=== PATIENT | male | born 1975 | race African-American/Black ===

== ENCOUNTER → 2016-09-09 | Outpatient (CLI) | payer OTHER ==
[2016-06-16 08:20] VITALS: BP 181/105
[~2016-09-09] MED LIST: ALPR0.25 PO; AMLO5TAB2 PO; AMLO5TAB4 PO; ASPI81TA9 PO; CARV6.252 PO; CEPH-264 PO; CITA10TA8 PO; HYDR-2666 PO; LISI10TA2 PO; LISI40TA PO; MONT10TA9 PO; OXYC-244 PO; PROAIR HFA8.5 GM INH
[2016-09-12 15:19] LABS: ALDOSTERONE 3.9 ng/dL (0.0-30.0)
== END | disposition home or self-care (01) ==
LOC: LAB 09:27
PROVIDERS: ATTEND Internal Medicine Cardiovascular Disease
DX: I10 Essential (primary) hypertension (principal)
CPT/HCPCS: 36415; 82088; 84244

== ENCOUNTER → 2016-09-15 | Outpatient (CLI) | payer OTHER ==
[2016-06-16 08:20] VITALS: BP 181/105
--- NOTE | 2016-09-15 09:51 | RAD ---
APPROVED REPORT Patient Location: OUT-PATIENT Indications HTN Renal Artery Doppler Right Renal Artery Left Renal Arter y Proximal 107.0/29.0 cm/secProximal 122.0/48.0 cm/sec Mid 87.0/32.0 cm/secMid 114.0/52.0 cm/sec Distal 79.0/30.0 cm/secDistal 145.0/54.0 cm/sec Renal/Aorta Ratio 0.90Renal/Aorta Ratio 1.21 Prox. Resistive Index 0.73Prox. Resistive Index 0.60 Mid Resistive Index 0.63Mid Resistive Index 0.54 Distal Resistive Index 0.63Distal Resistive Index 0.63 Rt. Segmental A. 17.0/7.0 cm/secLt. Segmental A. 45.0/17.0 cm/sec Renal Measurements RightLeft Kidney Mslurh07.1 cm 6.5 cmKidney Lhqbrz10.8 cm 7.7 cm Right Additional FindingsLeft Additional Findings Aortic Doppler VelocityWaveform Proximal Aorta 119.0 cm/sec Findings Follow schulz scale images of the bilateral kidneys and limited imaging of the aorta was obtained for t his renal arterial duplex. The right kidney measures 13.1 cm in length (slightly at the upper limits of normal), the left kidney measures 12.8 cm in length. Aortic and renal velocities are within normal limits. Renal artery to aortic ratio is bilaterally are within appropriate limits. No high-grade obstructive renal artery stenosis is identified on this duplex examination. Limited evaluation of the bladder does not reveal any significant pathology. Critical Notification Critical Value: No <Conclusion> Normal arterial duplex examination of the renal vessels.
== END | disposition home or self-care (01) ==
LOC: US 06:38
PROVIDERS: ATTEND Internal Medicine Cardiovascular Disease
DX: I10 Essential (primary) hypertension (principal)
CPT/HCPCS: 76770

== ENCOUNTER 2016-12-26 23:44 | Emergency (ER) | payer OTHER ==
[~2016-12-26] VITALS: Ht 180.3 cm; Wt 108.9 kg
[~2016-12-26 23:44] MED LIST changes: +ASPI-612 PO; -ASPI81TA9 PO; -HYDR-2666 PO; +HYDR-2758 PO; -OXYC-244 PO; +OXYC-327 PO
--- NOTE | 2016-12-27 00:18 | PHYS DOC ---
Past Medical History Past Medical History: Hypertension Past Surgical History: Other Additional Past Surgical Histo: hamstring Alcohol Use: Occasionally Drug Use: None Adult General Chief Complaint Chief Complaint: HYPERTENSION HPI HPI Patient is a 41 year old male who presents with for evaluation of HTN. Had a headache earlier, but this has resolved. He took ibuprofen. He has not been taking labetalol as prescribed, but has refills. He is talking his other medications. He denies chest pain, dyspnea, palpitations, diaphoresis, leg pain or swelling, vision changes, dizziness. Review of Systems Review of Systems Constitutional: Denies fever or chills [] Eyes: Denies change in visual acuity, redness, or eye pain [] HENT: Denies nasal congestion or sore throat [] Respiratory: Denies cough or shortness of breath [] Cardiovascular: No additional information not addressed in HPI [] GI: Denies abdominal pain, nausea, vomiting, bloody stools or diarrhea [] : Denies dysuria or hematuria [] Musculoskeletal: Denies back pain or joint pain [] Integument: Denies rash or skin lesions [] Neurologic: Denies headache, focal weakness or sensory changes [] Endocrine: Denies polyuria or polydipsia [] Current Medications Current Medications Current Medications Medications (Trade) Dose Ordered Sig/Isatu Start Time Stop Time Status Last Admin Dose Admin Labetalol HCl (Trandate) 200 mg 1X ONCE 12/27/16 00:30 12/27/16 00:31 DC 12/27/16 00:15 200 MG Allergies Allergies Allergies Coded Allergies Type Severity Reaction Last Updated Verified No Known Drug Allergies 02/25/16 No Physical Exam Physical Exam Constitutional: Well developed, well nourished, no acute distress, non-toxic appearance. [] HENT: Normocephalic, atraumatic, bilateral external ears normal, oropharynx moist, nose normal. [] Eyes: PERRLA, EOMI. [] Neck: Normal range of motion, supple. [] Cardiovascular:Heart rate regular rhythm [] Lungs & Thorax: Bilateral breath sounds clear to auscultation [] Abdomen: Bowel sounds normal, soft, no tenderness. [] Skin: Warm, dry, no erythema, no rash. [] Back: Normal ROM. [] Extremities: No tenderness, ROM intact, no edema. [] Neurologic: Alert and oriented X 3, normal motor function, normal sensory function, no focal deficits noted. [] Psychologic: Affect normal, judgement normal, mood normal. [] Current Patient Data Vital Signs Vital Signs Date Time Temp Pulse Resp B/P (MAP) Pulse Ox O2 Delivery O2 Flow Rate FiO2 12/27/16 00:31 98.0 90 20 176/86 (116) 98 Room Air 98.0 Course & Med Decision Making Course & Med Decision Making Encouraged medication compliance. Given dose of labetalol here. He will get meds filled in a.m. Return precautions given. He understands and agrees with plan. Dragon Disclaimer Dragon Disclaimer This electronic medical record was generated, in whole or in part, using a voice recognition dictation system. Departure Departure Impression: Primary Impression: Elevated blood pressure Disposition: HOME, SELF-CARE Condition: STABLE Referrals: SAMUEL JASSO MD (PCP) Patient Instructions: Hypertension, [id number] Additional Instructions: Follow-up with your primary care doctor within one week. Return for any concerns. Bhavna YOUNG MD Dec 27, 2016 00:18
[2016-12-27] MEDS ORDERED: LABETALOL HCL 200 MG TABLET PO ONE (00:30)
[2016-12-27 00:31] VITALS: BP 176/86
== END 2016-12-27 00:47 | disposition home or self-care (01) ==
LOC: ER 23:44
DX: I10 Essential (primary) hypertension (principal)
CPT/HCPCS: 99282

== ENCOUNTER 2017-01-14 17:55 | Inpatient (IN) | payer OTHER ==
[~2017-01-14] VITALS: Ht 180.3 cm; Wt 113.4 kg
--- NOTE | 2017-01-14 18:20 | PHYS DOC ---
Past Medical History Past Medical History: Hypertension Past Surgical History: Other Additional Past Surgical Histo: hamstring Alcohol Use: Occasionally Drug Use: None Adult General Chief Complaint Chief Complaint: CHEST PAIN HPI HPI Patient is a 41 year old male presenting to the emergency department for evaluation of chest pain that started approximately 2 hours prior to arrival when he says that he was laying has bed. He says that he was wrestling with his son and the pain started shortly afterwards but he did not think that he was necessarily exerting himself. He says that it is in the center of his lower chest with mild radiation towards her left and feels achy and tight but is not severe in intensity. He says that he had mild diaphoresis but no nausea vomiting or shortness of breath. He says the pain has persisted and not worsened or improved. He says that approximately one year ago he was seen for chest pain and had an elevated troponin and then had a stress test that was normal. His cardiac risk factors include hypertension and smoking and family history. He is in no obvious distress with normal vital signs except for mild hypertension. Review of Systems Review of Systems Constitutional: Denies fever or chills [] Eyes: Denies change in visual acuity, redness, or eye pain [] HENT: Denies nasal congestion or sore throat [] Respiratory: Denies cough or shortness of breath [] Cardiovascular: + CP GI: Denies abdominal pain, nausea, vomiting, bloody stools or diarrhea [] : Denies dysuria or hematuria [] Musculoskeletal: Denies back pain or joint pain [] Integument: Denies rash or skin lesions [] Neurologic: Denies headache, focal weakness or sensory changes [] Current Medications Current Medications Current Medications Medications (Trade) Dose Ordered Sig/Isatu Start Time Stop Time Status Last Admin Dose Admin Aspirin (Ecotrin) 325 mg 1X ONCE 01/14/17 18:30 01/14/17 18:31 DC 01/14/17 18:24 325 MG Nitroglycerin (Nitrostat) 0.4 mg PRN Q5MIN PRN 01/14/17 18:30 01/14/17 18:31 0.4 MG Allergies Allergies Allergies Coded Allergies Type Severity Reaction Last Updated Verified No Known Drug Allergies 02/25/16 No Physical Exam Physical Exam Constitutional: Well developed, well nourished, no acute distress, non-toxic appearance. [] HENT: Normocephalic, atraumatic, bilateral external ears normal, oropharynx moist, no oral exudates, nose normal. [] Eyes: PERRLA, EOMI, conjunctiva normal, no discharge. [] Neck: Normal range of motion, no tenderness, supple, no stridor. [] Cardiovascular:Heart rate regular rhythm, no murmur [] Lungs & Thorax: Bilateral breath sounds clear to auscultation [] Abdomen: Bowel sounds normal, soft, no tenderness, no masses, no pulsatile masses. [] Skin: Warm, dry, no erythema, no rash. [] Back: No tenderness, no CVA tenderness. [] Extremities: No tenderness, no cyanosis, no clubbing, ROM intact, no edema. [] Neurologic: Alert and oriented X 3, normal motor function, normal sensory function, no focal deficits noted. [] Current Patient Data Vital Signs Vital Signs Date Time Temp Pulse Resp B/P (MAP) Pulse Ox O2 Delivery O2 Flow Rate FiO2 01/14/17 18:31 102 147/67 01/14/17 18:05 98.3 18 98 Room Air 98.3 Lab Values Laboratory Tests Test 01/14/17 18:15 White Blood Count 9.8 x10^3/uL (4.0-11.0) Red Blood Count 4.94 x10^6/uL (4.30-5.70) Hemoglobin 15.0 g/dL (13.0-17.5) Hematocrit 44.1 % (39.0-53.0) Mean Corpuscular Volume 89 fL (79-100) Mean Corpuscular Hemoglobin 30 pg (25-35) Mean Corpuscular Hemoglobin Concent 34 g/dL (31-37) Red Cell Distribution Width 14.0 % (11.5-14.5) Platelet Count 388 x10^3/uL (140-400) # Neutrophils (%) (Auto) 67 % (31-73) Lymphocytes (%) (Auto) 24 % (24-48) Monocytes (%) (Auto) 7 % (0-9) Eosinophils (%) (Auto) 1 % (0-3) Basophils (%) (Auto) 1 % (0-3) Neutrophils # (Auto) 6.6 x10^3uL (1.8-7.7) Lymphocytes # (Auto) 2.4 x10^3/uL (1.0-4.8) Monocytes # (Auto) 0.6 x10^3/uL (0.0-1.1) Eosinophils # (Auto) 0.1 x10^3/uL (0.0-0.7) Basophils # (Auto) 0.1 x10^3/uL (0.0-0.2) Prothrombin Time 13.5 SEC (11.7-14.0) Prothrombin Time INR 1.1 (0.8-1.1) PTT 24 SEC (24-38) Sodium Level 141 mmol/L (136-145) Potassium Level 3.8 mmol/L (3.5-5.1) Chloride Level 106 mmol/L (98-107) Carbon Dioxide Level 24 mmol/L (21-32) Anion Gap 11 (6-14) Blood Urea Nitrogen 11 mg/dL (8-26) Creatinine 1.1 mg/dL (0.7-1.3) Estimated GFR (Cockcroft-Gault) 88.4 BUN/Creatinine Ratio 10 (6-20) Glucose Level 135 mg/dL (70-99) H Calcium Level 8.6 mg/dL (8.5-10.1) Magnesium Level 1.9 mg/dL (1.8-2.4) Total Bilirubin 0.3 mg/dL (0.2-1.0) Aspartate Amino Transferase (AST) 56 U/L (15-37) H Alanine Aminotransferase (ALT) 101 U/L (16-63) H Alkaline Phosphatase 48 U/L (46-116) Creatine Kinase 1048 U/L (39-308) H Troponin I Quantitative 0.025 ng/mL (0.000-0.055) DD-Stm-B-Type Natriuretic Peptide 49 pg/mL (0-124) Total Protein 6.7 g/dL (6.4-8.2) Albumin 3.3 g/dL (3.4-5.0) L Albumin/Globulin Ratio 1.0 (1.0-1.7) Laboratory Tests 01/14/17 18:15 Laboratory Tests 01/14/17 18:15 EKG EKG Normal sinus rhythm at 89 bpm with normal axis small J-point elevation in leads V2 and V3 with normal T waves. Radiology/Procedures Radiology/Procedures Normal mediastinum and normal heart size no obvious free air pneumothorax or opacity. Course & Med Decision Making Course & Med Decision Making Patient's chest pain completely taken away with 2 doses of nitroglycerin and his blood pressure is normal. He has a normal troponin so his heart score is equal to 4. He is still lower risk given his history and concerning symptoms will go ahead and admit for further observation and treatment. Patient given aspirin and is pain-free so will admit to [facility]VC in stable condition. Patient aware and agreeable with plan. Dragon Disclaimer Dragon Disclaimer This electronic medical record was generated, in whole or in part, using a voice recognition dictation system. Departure Departure Impression: Primary Impression: Chest pain Additional Impressions: Hypertensive urgency Rhabdomyolysis Disposition: ADMITTED INPATIENT Admitting Physician: Luis E Russ Condition: STABLE Referrals: SAMUEL JASSO MD (PCP) Problem Qualifiers Primary Impression: Chest pain Chest pain type: unspecified Qualified Codes: R07.9 - Chest pain, unspecified SANTOSH LOCKWOOD DO Jan 14, 2017 18:20
[2017-01-14] MEDS: NITROGLYCERIN SUBLINGUAL 0.4 MG BOTTLE OF 25. SL PRN ×2 (18:25→18:31)
[2017-01-14 18:27] LABS: BASO # 0.1 x10^3/uL (0.0-0.2); BASO % 1 % (0-3); EOS % 1 % (0-3); HEMATOCRIT 44.1 % (39.0-53.0); LYMPH # 2.4 x10^3/uL (1.0-4.8); LYMPH % 24 % (24-48); MEAN CORPUSCULAR HEMOGLOBIN 30 pg (25-35); MEAN CORPUSCULAR HGB CONC 34 g/dL (31-37); MEAN CORPUSCULAR VOLUME 89 fL (79-100); MONO % 7 % (0-9); NEUT % 67 % (31-73); PLATELET COUNT 388 x10^3/uL (140-400); RED BLOOD COUNT 4.94 x10^6/uL (4.30-5.70); WHITE BLOOD COUNT 9.8 x10^3/uL (4.0-11.0)
[2017-01-14] MEDS ORDERED: ASPIRIN ENTERIC COATED 325 MG TABLET.DR. PO ONE (18:30)
--- NOTE | 2017-01-14 18:35 | EKG ---
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
[2017-01-14 18:39] LABS: INR 1.1 (0.8-1.1); PROTHROMBIN TIME PATIENT 13.5 SEC (11.7-14.0)
[2017-01-14 18:41] LABS: CALCIUM 8.6 mg/dL (8.5-10.1); CREATININE 1.1 mg/dL (0.7-1.3); GFR 88.4; POTASSIUM 3.8 mmol/L (3.5-5.1)
[2017-01-14 18:57] LABS: ALBUMIN 3.3 g/dL (3.4-5.0); MAGNESIUM 1.9 mg/dL (1.8-2.4); TOTAL BILIRUBIN 0.3 mg/dL (0.2-1.0); TOTAL PROTEIN 6.7 g/dL (6.4-8.2)
[2017-01-14] MEDS ORDERED: IV NORMAL SALINE 1000ML BAG 1,000 ML IV ONE (19:15)
[2017-01-14] MEDS ORDERED: fentaNYL PF VIAL 100 MCG/2 ML VIAL IV PRN (19:15)
[2017-01-14] MEDS ORDERED: ONDANSETRON PF 4 MG/2 ML VIAL. IV PRN ×2 (19:15→19:45)
--- NOTE | 2017-01-14 19:26 | PDOC1 ---
History and Physical Identification/Chief Complaint Chief Complaint Date of exam 01/14/2017 Chief complaint: Chest pain History of present illness: A 41-year-old male patient with prior history of hypertension presented to the ER with complaints of chest pain. Symptoms started 2 hours prior to his arrival to the ER. Patient was wrestling with his son, after few minutes his chest pain started, located in the center of the chest, denies any radiation sometimes, it's pokey, no nausea or vomiting however he had a 3 loose bowel movements after the chest pain. Patient usually lifts weights but he never had a chest pain. He received a nitroglycerin in the ER which made him comfortable and his chest pain is completely resolved. Patient had similar episodes in the past nearly one year ago at the time he had a stress test per report it was negative Past medical history hypertension Past surgical history hamstring surgery Family history grandmother had a heart disease, no cardiac deaths Social history: Currently smoking, no alcohol or drug abuse Allergies NKDA Problems: Past Medical History Cardiovascular: HTN, Hyperlipidemia Pulmonary: No pertinent hx CENTRAL NERVOUS SYSTEM: Other GI: No pertinent hx Heme/Onc: No pertinent hx Hepatobiliary: No pertinent hx Psych: Anxiety, Bipolar, Depression, Panic, Other Rheumatologic: No pertinent hx Infectious disease: No pertinent hx Renal/: No pertinent hx Endocrine: No pertinent hx Past Surgical History Past Surgical History: Tonsillectomy Family History Family History: Diabetes, Heart Disease, Hypertension Social History ALCOHOL: occassional Drugs: None Current Problem List Problem List Problems Medical Problems: (1) Chest pain Status: Acute Current Medications Current Medications Current Medications Medications (Trade) Dose Ordered Sig/[facility] Start Time Stop Time Status Last Admin Dose Admin Aspirin (Ecotrin) 325 mg 1X ONCE 01/14/17 18:30 01/14/17 18:31 DC 01/14/17 18:24 325 MG Fentanyl Citrate (Fentanyl 2ml Vial) 50 mcg PRN Q2HR PRN 01/14/17 19:15 01/15/17 19:14 Nitroglycerin (Nitrostat) 0.4 mg PRN Q5MIN PRN 01/14/17 18:30 01/14/17 18:31 0.4 MG Ondansetron HCl (Zofran) 4 mg PRN Q8HRS PRN 01/14/17 19:15 01/15/17 19:14 Sodium Chloride 1,000 ml @ 200 mls/hr 1X ONCE 01/14/17 19:15 01/15/17 00:14 Allergies Allergies Allergies Coded Allergies Type Severity Reaction Last Updated Verified No Known Drug Allergies 02/25/16 No ROS Review of System CONSTITUTIONAL: No fever or chills EYES: No recent changes SKIN: No rash or itching CARDIOVASCULAR: chest pain,no syncope, palpitations, or edema RESPIRATORY: No SOB or cough GASTROINTESTINAL: No nausea, vomiting or abdominal pain NEUROLOGICAL: No headaches or weakness ENDOCRINE: No cold or heat intolerance GENITOURINARY: No urgency or frequency of urination MUSCULOSKELETAL: No back pain or joint pain LYMPHATICS: No enlarged lymph nodes PSYCHIATRIC: No anxiety or depression Physical Exam Physical Exam GEN.: No apparent distress. Alert and oriented. 3 and appears muscular heavy built. HEENT: Head is normocephalic, atraumatic NECK: Supple. JVD LUNGS: Clear to auscultation. Normal airflow HEART: RRR, S1, S2 present. Peripheral pulses intact ABDOMEN: Soft, nontender. Positive bowel sounds. EXTREMITIES: Without any cyanosis. NEUROLOGIC: Normal speech, normal tone PSYCHIATRIC: Normal affect, normal mood. SKIN: No ulcerations Vitals Vitals Vital Signs Date Time Temp Pulse Resp B/P (MAP) Pulse Ox O2 Delivery O2 Flow Rate FiO2 01/14/17 18:31 102 147/67 01/14/17 18:05 98.3 18 98 Room Air 98.3 Labs Labs Laboratory Tests Test 01/14/17 18:15 White Blood Count 9.8 x10^3/uL (4.0-11.0) Red Blood Count 4.94 x10^6/uL (4.30-5.70) Hemoglobin 15.0 g/dL (13.0-17.5) Hematocrit 44.1 % (39.0-53.0) Mean Corpuscular Volume 89 fL (79-100) Mean Corpuscular Hemoglobin 30 pg (25-35) Mean Corpuscular Hemoglobin Concent 34 g/dL (31-37) Red Cell Distribution Width 14.0 % (11.5-14.5) Platelet Count 388 x10^3/uL (140-400) Neutrophils (%) (Auto) 67 % (31-73) Lymphocytes (%) (Auto) 24 % (24-48) Monocytes (%) (Auto) 7 % (0-9) Eosinophils (%) (Auto) 1 % (0-3) Basophils (%) (Auto) 1 % (0-3) Neutrophils # (Auto) 6.6 x10^3uL (1.8-7.7) Lymphocytes # (Auto) 2.4 x10^3/uL (1.0-4.8) Monocytes # (Auto) 0.6 x10^3/uL (0.0-1.1) Eosinophils # (Auto) 0.1 x10^3/uL (0.0-0.7) Basophils # (Auto) 0.1 x10^3/uL (0.0-0.2) Prothrombin Time 13.5 SEC (11.7-14.0) Prothromb Time International Ratio 1.1 (0.8-1.1) Activated Partial Thromboplast Time 24 SEC (24-38) Sodium Level 141 mmol/L (136-145) Potassium Level 3.8 mmol/L (3.5-5.1) Chloride Level 106 mmol/L (98-107) Carbon Dioxide Level 24 mmol/L (21-32) Anion Gap 11 (6-14) Blood Urea Nitrogen 11 mg/dL (8-26) Creatinine 1.1 mg/dL (0.7-1.3) Estimated GFR (Cockcroft-Gault) 88.4 BUN/Creatinine Ratio 10 (6-20) Glucose Level 135 mg/dL (70-99) Calcium Level 8.6 mg/dL (8.5-10.1) Magnesium Level 1.9 mg/dL (1.8-2.4) Total Bilirubin 0.3 mg/dL (0.2-1.0) Aspartate Amino Transf (AST/SGOT) 56 U/L (15-37) Alanine Aminotransferase (ALT/SGPT) 101 U/L (16-63) Alkaline Phosphatase 48 U/L (46-116) Creatine Kinase 1048 U/L (39-308) Troponin I Quantitative 0.025 ng/mL (0.000-0.055) RI-Meb-E-Type Natriuretic Peptide 49 pg/mL (0-124) Total Protein 6.7 g/dL (6.4-8.2) Albumin 3.3 g/dL (3.4-5.0) Albumin/Globulin Ratio 1.0 (1.0-1.7) Laboratory Tests Test 01/14/17 18:15 White Blood Count 9.8 x10^3/uL (4.0-11.0) Red Blood Count 4.94 x10^6/uL (4.30-5.70) Hemoglobin 15.0 g/dL (13.0-17.5) Hematocrit 44.1 % (39.0-53.0) Mean Corpuscular Volume 89 fL (79-100) Mean Corpuscular Hemoglobin 30 pg (25-35) Mean Corpuscular Hemoglobin Concent 34 g/dL (31-37) Red Cell Distribution Width 14.0 % (11.5-14.5) Platelet Count 388 x10^3/uL (140-400) Neutrophils (%) (Auto) 67 % (31-73) Lymphocytes (%) (Auto) 24 % (24-48) Monocytes (%) (Auto) 7 % (0-9) Eosinophils (%) (Auto) 1 % (0-3) Basophils (%) (Auto) 1 % (0-3) Neutrophils # (Auto) 6.6 x10^3uL (1.8-7.7) Lymphocytes # (Auto) 2.4 x10^3/uL (1.0-4.8) Monocytes # (Auto) 0.6 x10^3/uL (0.0-1.1) Eosinophils # (Auto) 0.1 x10^3/uL (0.0-0.7) Basophils # (Auto) 0.1 x10^3/uL (0.0-0.2) Prothrombin Time 13.5 SEC (11.7-14.0) Prothromb Time International Ratio 1.1 (0.8-1.1) Activated Partial Thromboplast Time 24 SEC (24-38) Sodium Level 141 mmol/L (136-145) Potassium Level 3.8 mmol/L (3.5-5.1) Chloride Level 106 mmol/L (98-107) Carbon Dioxide Level 24 mmol/L (21-32) Anion Gap 11 (6-14) Blood Urea Nitrogen 11 mg/dL (8-26) Creatinine 1.1 mg/dL (0.7-1.3) Estimated GFR (Cockcroft-Gault) 88.4 BUN/Creatinine Ratio 10 (6-20) Glucose Level 135 mg/dL (70-99) Calcium Level 8.6 mg/dL (8.5-10.1) Magnesium Level 1.9 mg/dL (1.8-2.4) Total Bilirubin 0.3 mg/dL (0.2-1.0) Aspartate Amino Transf (AST/SGOT) 56 U/L (15-37) Alanine Aminotransferase (ALT/SGPT) 101 U/L (16-63) Alkaline Phosphatase 48 U/L (46-116) Creatine Kinase 1048 U/L (39-308) Troponin I Quantitative 0.025 ng/mL (0.000-0.055) FU-Oab-U-Type Natriuretic Peptide 49 pg/mL (0-124) Total Protein 6.7 g/dL (6.4-8.2) Albumin 3.3 g/dL (3.4-5.0) Albumin/Globulin Ratio 1.0 (1.0-1.7) VTE Prophylaxis Ordered VTE Prophylaxis Devices: Yes VTE Pharmacological Prophylaxi: No Assessment/Plan Assessment/Plan Chest pain, possible angina: Symptoms improved with nitroglycerin, monitor 3 sets of troponin ,admit patient to CVC, continue telemetry, cardiology consultation. He has needed nitroglycerin for chest pain. If patient develops any elevated troponins restart him on heparin GTT at this time he is chest pain- free.EKG is reviewed- no acute ST-T. Changes noted, chest x-ray personally reviewed no acute findings, labs reviewed, old records reviewed, discussed with the ER physician Mild elevation of troponins: Monitor troponins Hypertension : Not controlled restart home medications, and as needed hydralazine for systolic blood pressure more than 160. Hypogonadism: On testosterone therapy ROGER BLANCA MD Jan 14, 2017 19:26
[2017-01-14] MEDS ORDERED: ALBUTEROL SULFATE 2.5 MG/3 ML NEBU. NEB PRN (19:45)
[2017-01-14] MEDS ORDERED: HYDROcodone/APAP 5/325MG 1 TAB TABLET PO PRN (19:45)
[2017-01-14] MEDS ORDERED: ACETAMINOPHEN 325 MG TABLET. PO PRN (19:45)
[2017-01-14 22:01] VITALS: BP 175/67
[2017-01-14 23:05] VITALS: BP 158/70
[2017-01-14] MEDS ORDERED: ZOLPIDEM 5 MG TABLET. PO ONE (23:45)
--- NOTE | 2017-01-15 00:21 | ACF ---
Admission Forms Criteria CHEST PAIN Clinical Indications for Admission to Inpatient Care (Place 'X' for any and all applicable criteria): Admission is indicated for chest pain and ANY ONE of the following(1)(2)(3)(4)(5 ): [ ]I. Angina with acute coronary syndrome (Also use Myocardial Infarction or Angina guideline) [ ]II. Hemodynamic instability [ ]III. Angina needing acute intervention as indicated by ALL of the following( 11)(12): [ ]a) Unstable angina is present as indicated by angina that is ANY ONE of the following: [ ]i) New onset [ ]ii) Nocturnal [ ]iii) Prolonged at rest [ ]iv) Progressive [ ]b) Angina warrants acute intervention as indicated by ANY ONE of the following: [ ]i) Recurrent angina (e.g, not responding as previously to treatment) [ ]ii) Angina at rest or with low-level activities despite initial medical therapy [ ]iii) New or presumably new ST-segment depression on ECG [ ]iv) Signs or symptoms of heart failure (eg, dyspnea, pulmonary edema) [ ]v) New or worsening mitral regurgitation [ ]vi) Hemodynamic instability [ ]vii) Dangerous arrhythmia (eg, sustained ventricular tachycardia) [ ]viii) History of percutaneous coronary intervention within 6 months [ ]ix) History of coronary artery bypass graft surgery [ ]x) LG risk score of 2 or greater[A] [ ]xi) History of Diabetes(14) [ ]xii) High-risk cardiac ischemia findings on noninvasive testing (e.g, echocardiogram, treadmill testing, nuclear scan) [ ]xiii) Chronic renal insufficiency (ie, estimated GFR less than 60 mL/min/1.732m) [ ]xiv) Left ventricular ejection fraction less than 40% [ ]IV. Evidence of OH (eg, cardiac biomarkers positive, ST-segment elevation on ECG) also use Myocardial Infarction Criteria Form. [ ]V. Pulmonary edema [ ]. Respiratory distress [ ]VII. Chest pain indicative of serious diagnosis other than coronary artery disease (eg, aortic dissection) [ ]VIII. Contraindications and/or Inappropriate clinical situations for Observational Care in patients with Chest Pain, when ANY ONE of the following is required: [ ]a) Patient with risk factor for pulmonary embolism, acute coronary syndrome and myocardial infarction (18) [ ]b) Patient with Pulmonary embolism require an average LOS of 4.3 days, therefore emergency department observation management is inappropriate 18,23 [ ]c) Painful condition/s in the elderly, have the highest rate of recidivism after emergency department observation management (10.8%) 20,21,22 [ ]d) Elevated cardiac biomarker requires intensive and exhaustive care (19) [X]IX. General contraindications and/or Inappropriate clinical situations for Observational Care in patients with Chest Pain, when ANY ONE of the following is required: [X]a) Prediction of prolongation of LOS based on ANY ONE of the following may be considered as a contraindication for observational care 2, 3, 4, 5, 6, 7, 8, 9, 10, 11 [ ]i) Age > 65 yrs. [ ]ii) Patient arriving by ambulance [ ]iii) Patient with high acuity [X]iv) Patient requiring vital sign monitoring [ ]v) Patient on IV medication [ ]b) Systolic blood pressures 180mmHg 3,12 [ ]c) Patient with altered mental status including delirium and other alteration of consciousness, (3) [ ]d) Patient whose discharge disposition will be to a senior care home or rehabilitation home should not be managed in Emergency Department Observation Unit. CMS rule requires 3 days hospital stay before such placement. 3,13 [ ]e) Patient with failure to thrive due to broad array of etiologies 3,16,17 [ ]f) Inability to ambulate 3,14 Extended stay beyond goal length of stay may be needed for (1)(28): [ ]a) Specific condition diagnosed after evaluation (eg, pulmonary embolism, aortic dissection) [ ]b) Unstable angina [ ]c) Continued suspicion of acute coronary syndrome with inability to complete needed cardiac evaluation (eg, patient clinically unable to undergo stress testing) [ ]d) Myocardial infarction (Contents from ANGINA and CHEST PAIN clinical indications for admission to inpatient care have been integrated in this form) The original [facility] content created by [employer] has been revised. The portions of the content which have been revised are identified through the use of italic text or in bold, and [facility] has neither reviewed nor approved the modified material. All other unmodified content is copyright [facility]. Please see references footnoted in the original [facility] [employer] edition 2016 Admission Criteria Met?: Yes PAULA RODAS Jan 15, 2017 00:21
[2017-01-15 03:10] VITALS: BP 163/92
[2017-01-15 07:00] VITALS: BP 174/88
[2017-01-15] MEDS ORDERED: LABE200T2 PO (07:13)
--- NOTE | 2017-01-15 07:45 | RAD ---
Chest radiograph 01/14/2017 1829 hours Indication: Mid chest pain Comparison: Chest radiograph 06/14/2016 Technique: Single portable frontal upright view of the chest is provided. Findings: Cardiomediastinal silhouette is within normal limits. No pleural effusions, pulmonary vascular congestion or pneumothorax. The lungs are clear. Osseous structures are normal. Impression: No acute cardiopulmonary process.
[2017-01-15 07:48] LABS: BASO % 0 % (0-3); EOS % 1 % (0-3); HEMATOCRIT 44.6 % (39.0-53.0); HEMOGLOBIN 15.3 g/dL (13.0-17.5); LYMPH # 2.5 x10^3/uL (1.0-4.8); LYMPH % 28 % (24-48); MEAN CORPUSCULAR HEMOGLOBIN 30 pg (25-35); MEAN CORPUSCULAR HGB CONC 34 g/dL (31-37); MEAN CORPUSCULAR VOLUME 88 fL (79-100); MONO % 7 % (0-9); NEUT % 64 % (31-73); PLATELET COUNT 396 x10^3/uL (140-400); RED BLOOD COUNT 5.06 x10^6/uL (4.30-5.70); RED CELL DISTRIBUTION WIDTH 14.3 % (11.5-14.5); WHITE BLOOD COUNT 8.9 x10^3/uL (4.0-11.0)
[2017-01-15 09:56] LABS: CALCIUM 8.1 mg/dL (8.5-10.1); CREATININE 1.2 mg/dL (0.7-1.3); POTASSIUM 4.1 mmol/L (3.5-5.1)
[2017-01-15 10:00] LABS: CHOLESTEROL/HDL RATIO 15.5
--- NOTE | 2017-01-15 10:38 | PDOC2 ---
CARDIAC CONSULT DATE OF CONSULT Date of Consult DATE: 01/15/17 TIME: 10:32 REASON FOR CONSULT Reason for Consult: Chest pain REFERRING PHYSICIAN Referring Physician: Ricarda SOURCE Source: Chart review, Patient HISTORY OF PRESENT ILLNESS HISTORY OF PRESENT ILLNESS This is a pleasant 41 yo male admitted for complains of chest pain. 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 Overnight he was having nonradiating mid chest tightness with mild SOA, diaphoresis but no nausea or vomiting or palpitations. Presently denies any CP. Denies any VTE, recent travels, leg swelling, falls or any recent injury or significant increase in his weights. His BP has been erratically high then normal with his meds has been adjusted several times. His last sudafed use was over a week for URI. Denies any recreational drugs and compliant with his BP meds. He does use testosterone therapy. No abdominal pain. PAST MEDICAL HISTORY Past Medical History Cardiovascular: HTN, Hyperlipidemia, cardiomegaly Pulmonary: No pertinent hx CENTRAL NERVOUS SYSTEM: TIA GI: No pertinent hx Heme/Onc: No pertinent hx Hepatobiliary: No pertinent hx Psych: No pertinent hx Musculoskeletal: Other (No pertinent history) Rheumatologic: No pertinent hx Infectious disease: No pertinent hx ENT: No pertinent hx Renal/: No pertinent hx Endocrine: Other (hypogonadism) Dermatology: No pertinent hx SOCIAL HISTORY Smoke: No ALCOHOL: occassional (but binge drinking with episode) Drugs: None Lives: with Family PAST SURGICAL HISTORY Past Surgical History: Tonsillectomy, Other (Right thigh muscle repair) FAMILY HISTORY Family History Coronary Artery Disease (grandfather with CAD in his 50s, parents with liver disease) SOCIAL HISTORY Smoke: No ALCOHOL: none Drugs: None Lives: with Family CURRENT MEDICATIONS CURRENT MEDICATIONS Current Medications Medications (Trade) Dose Ordered Sig/Isatu Route PRN Reason Start Time Stop Time Status Last Admin Dose Admin Aspirin (Ecotrin) 325 mg 1X ONCE PO 01/14/17 18:30 01/14/17 18:31 DC 01/14/17 18:24 Nitroglycerin (Nitrostat) 0.4 mg PRN Q5MIN PRN SL CHEST PAIN 01/14/17 18:30 01/14/17 18:31 Sodium Chloride 1,000 ml @ 200 mls/hr 1X ONCE IV 01/14/17 19:15 01/15/17 00:14 DC 01/14/17 19:56 Zolpidem Tartrate (Ambien) 5 mg 1X ONCE PO 01/14/17 23:45 01/14/17 23:46 DC 01/14/17 23:44 ALLERGIES ALLERGIES: Coded Allergies: No Known Drug Allergies (Unverified , 02/25/16) ROS Review of System 14 point ROS evaluated with pertinent positives noted per HPI PHYSICAL EXAM General: Alert, Oriented X3, Cooperative, No acute distress HEENT: Atraumatic, Mucous membr. moist/pink Lungs: Clear to auscultation, Normal air movement Heart: Regular rate (SR), Normal S1, Normal S2 Abdomen: Soft, No tenderness Extremities: No cyanosis, No edema Skin: No breakdown, No significant lesion Neuro: Normal speech, Sensation intact Psych/Mental Status: Mental status NL, Mood NL MUSCULOSKELETAL: Osteoarthritic changes both hands VITALS VITALS Vital Signs Date Time Temp Pulse Resp B/P (MAP) Pulse Ox O2 Delivery O2 Flow Rate FiO2 01/15/17 08:13 97 Room Air 01/15/17 07:00 97.9 88 17 174/88 (116) 97.9 LABS Lab: Laboratory Tests Test 01/14/17 18:15 01/15/17 00:50 01/15/17 07:20 White Blood Count 9.8 x10^3/uL (4.0-11.0) 8.9 x10^3/uL (4.0-11.0) Red Blood Count 4.94 x10^6/uL (4.30-5.70) 5.06 x10^6/uL (4.30-5.70) Hemoglobin 15.0 g/dL (13.0-17.5) 15.3 g/dL (13.0-17.5) Hematocrit 44.1 % (39.0-53.0) 44.6 % (39.0-53.0) Mean Corpuscular Volume 89 fL (79-100) 88 fL (79-100) Mean Corpuscular Hemoglobin 30 pg (25-35) 30 pg (25-35) Mean Corpuscular Hemoglobin Concent 34 g/dL (31-37) 34 g/dL (31-37) Red Cell Distribution Width 14.0 % (11.5-14.5) 14.3 % (11.5-14.5) Platelet Count 388 x10^3/uL (140-400) 396 x10^3/uL (140-400) Neutrophils (%) (Auto) 67 % (31-73) 64 % (31-73) Lymphocytes (%) (Auto) 24 % (24-48) 28 % (24-48) Monocytes (%) (Auto) 7 % (0-9) 7 % (0-9) Eosinophils (%) (Auto) 1 % (0-3) 1 % (0-3) Basophils (%) (Auto) 1 % (0-3) 0 % (0-3) Neutrophils # (Auto) 6.6 x10^3uL (1.8-7.7) 5.6 x10^3uL (1.8-7.7) Lymphocytes # (Auto) 2.4 x10^3/uL (1.0-4.8) 2.5 x10^3/uL (1.0-4.8) Monocytes # (Auto) 0.6 x10^3/uL (0.0-1.1) 0.6 x10^3/uL (0.0-1.1) Eosinophils # (Auto) 0.1 x10^3/uL (0.0-0.7) 0.1 x10^3/uL (0.0-0.7) Basophils # (Auto) 0.1 x10^3/uL (0.0-0.2) 0.0 x10^3/uL (0.0-0.2) Prothrombin Time 13.5 SEC (11.7-14.0) Prothromb Time International Ratio 1.1 (0.8-1.1) Activated Partial Thromboplast Time 24 SEC (24-38) Sodium Level 141 mmol/L (136-145) 140 mmol/L (136-145) Potassium Level 3.8 mmol/L (3.5-5.1) 4.1 mmol/L (3.5-5.1) Chloride Level 106 mmol/L (98-107) 105 mmol/L (98-107) Carbon Dioxide Level 24 mmol/L (21-32) 26 mmol/L (21-32) Anion Gap 11 (6-14) 9 (6-14) Blood Urea Nitrogen 11 mg/dL (8-26) 11 mg/dL (8-26) Creatinine 1.1 mg/dL (0.7-1.3) 1.2 mg/dL (0.7-1.3) Estimated GFR (Cockcroft-Gault) 88.4 80.0 BUN/Creatinine Ratio 10 (6-20) Glucose Level 135 mg/dL (70-99) 100 mg/dL (70-99) Calcium Level 8.6 mg/dL (8.5-10.1) 8.1 mg/dL (8.5-10.1) Magnesium Level 1.9 mg/dL (1.8-2.4) Total Bilirubin 0.3 mg/dL (0.2-1.0) Aspartate Amino Transf (AST/SGOT) 56 U/L (15-37) Alanine Aminotransferase (ALT/SGPT) 101 U/L (16-63) Alkaline Phosphatase 48 U/L (46-116) Creatine Kinase 1048 U/L (39-308) 652 U/L (39-308) Troponin I Quantitative 0.025 ng/mL (0.000-0.055) 0.039 ng/mL (0.000-0.055) < 0.017 ng/mL (0.000-0.055) GD-Zoa-Y-Type Natriuretic Peptide 49 pg/mL (0-124) Total Protein 6.7 g/dL (6.4-8.2) Albumin 3.3 g/dL (3.4-5.0) Albumin/Globulin Ratio 1.0 (1.0-1.7) Triglycerides Level 98 mg/dL (0-150) Cholesterol Level 248 mg/dL (0-200) LDL Cholesterol, Calculated 212 mg/dL (0-100) VLDL Cholesterol, Calculated 20 mg/dL (0-40) Non-HDL Cholesterol Calculated 232 mg/dL (0-129) HDL Cholesterol 16 mg/dL (40-60) Cholesterol/HDL Ratio 15.5 Thyroid Stimulating Hormone (TSH) 0.884 uIU/mL (0.358-3.74) ECHOCARDIOGRAM ECHOCARDIOGRAM <Conclusion> The left ventricular systolic function is normal. The Ejection Fraction is estimated at 60-65%. There is normal LV segmental wall motion. Doppler and Color-flow revealed trace mitral regurgitation. There is no evidence of significant pericardial effusion. DATE: 12/09/15 1117 STRESS TEST STRESS TEST Conclusion 1. No evidence of stress induced EKG changes. 2. Normal myocardial perfusion at stress/rest. 3. Normal EF with stress. > 60% 4. Low risk study DATE: 12/19/15 1432 ASSESSMENT/PLAN ASSESSMENT/PLAN 1. Chest pain: Doubt ACS. Possible MSK/bronchospasm. 2. Presyncope: reports inadequate po hydration, bradycardia/ and possible hypotensive episode contributing 3. Sinus Bradycardia: likely vagal induced with underlying use of BB 4. Accelerated HTN: difficult control so far with multiple adjustment of meds in the past. Negative for ANJUM. Suspecting testosterone therapy contributing 5. HLP: uncontrolled. testosterone therapy contributing 6. Transaminitis/Rhabdomyolysis: No abd pain. Likely from weight lifting, creatine powder use and testosterone therapy Recommendations 1. TTE, discussed MPI vs LHC and would prefer to have MPI, will proceed today 2. EKG. Sleep study is pending as an outpt. 3. Amlodipine, start on losartan, start on hydralazine. No BB. 4. Will need to check testosterone levels and ultrasound of liver- defer to PCP 5. Discussed protein drinks, physiology of muscle breakdown and hydration adequacy 6. TSH, CK Problems: NOREEN LR BRAZER FURNACE Jan 15, 2017 10:38
[2017-01-15 11:00] VITALS: BP 168/84
[2017-01-15 11:08] LABS: ALBUMIN 3.4 g/dL (3.4-5.0); DIRECT BILIRUBIN 0.1 mg/dL (0.0-0.2); TOTAL BILIRUBIN 0.3 mg/dL (0.2-1.0); TOTAL PROTEIN 6.7 g/dL (6.4-8.2)
[2017-01-15] MEDS: LOSARTAN POTASSIUM 50 MG TABLET. PO SCH (11:09)
[2017-01-15] MEDS: amLODIPine BESYLATE 10 MG TABLET PO SCH (11:10)
--- NOTE | 2017-01-15 12:12 | EKG ---
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
[2017-01-15] MEDS ORDERED: REGADENOSON 0.4 MG/5 ML DISP.SYRIN. IV ONE (12:15)
--- NOTE | 2017-01-15 14:09 | PDOC ---
PROGRESS NOTES Chief Complaint Chief Complaint Chest pain, possible unstable angina Mild elevation of troponins Hypertension accellerated. Hypogonadism: On testosterone therapy HLD mild rhabdo h/o TIA tobaccoism possible MYLA ELEVATED transaminites, likely 2/2 ROBERTS PLAN: FU WITH card, echo MPI hold BB since delbert today add more HTN meds liver US ADD lipitor ivf, repeate CKMB fu with pulm as outpt for MYLA History of Present Illness History of Present Illness CHEST pain much better today bp high, delbert cardia sometime Vitals Vitals Vital Signs Date Time Temp Pulse Resp B/P (MAP) Pulse Ox O2 Delivery O2 Flow Rate FiO2 01/15/17 11:10 89 168/79 01/15/17 11:00 98.0 18 97 Room Air 98.0 Physical Exam General: Alert, Oriented X3, Cooperative, No acute distress Heart: Regular rate (SR), Normal S1, Normal S2 Lungs: Clear Abdomen: Soft, No tenderness Extremities: No cyanosis, No edema Skin: No breakdown, No significant lesion Labs LABS Laboratory Tests Test 01/14/17 18:15 01/15/17 00:50 01/15/17 07:20 White Blood Count 9.8 x10^3/uL (4.0-11.0) 8.9 x10^3/uL (4.0-11.0) Red Blood Count 4.94 x10^6/uL (4.30-5.70) 5.06 x10^6/uL (4.30-5.70) Hemoglobin 15.0 g/dL (13.0-17.5) 15.3 g/dL (13.0-17.5) Hematocrit 44.1 % (39.0-53.0) 44.6 % (39.0-53.0) Mean Corpuscular Volume 89 fL (79-100) 88 fL (79-100) Mean Corpuscular Hemoglobin 30 pg (25-35) 30 pg (25-35) Mean Corpuscular Hemoglobin Concent 34 g/dL (31-37) 34 g/dL (31-37) Red Cell Distribution Width 14.0 % (11.5-14.5) 14.3 % (11.5-14.5) Platelet Count 388 x10^3/uL (140-400) 396 x10^3/uL (140-400) Neutrophils (%) (Auto) 67 % (31-73) 64 % (31-73) Lymphocytes (%) (Auto) 24 % (24-48) 28 % (24-48) Monocytes (%) (Auto) 7 % (0-9) 7 % (0-9) Eosinophils (%) (Auto) 1 % (0-3) 1 % (0-3) Basophils (%) (Auto) 1 % (0-3) 0 % (0-3) Neutrophils # (Auto) 6.6 x10^3uL (1.8-7.7) 5.6 x10^3uL (1.8-7.7) Lymphocytes # (Auto) 2.4 x10^3/uL (1.0-4.8) 2.5 x10^3/uL (1.0-4.8) Monocytes # (Auto) 0.6 x10^3/uL (0.0-1.1) 0.6 x10^3/uL (0.0-1.1) Eosinophils # (Auto) 0.1 x10^3/uL (0.0-0.7) 0.1 x10^3/uL (0.0-0.7) Basophils # (Auto) 0.1 x10^3/uL (0.0-0.2) 0.0 x10^3/uL (0.0-0.2) Prothrombin Time 13.5 SEC (11.7-14.0) Prothromb Time International Ratio 1.1 (0.8-1.1) Activated Partial Thromboplast Time 24 SEC (24-38) Sodium Level 141 mmol/L (136-145) 140 mmol/L (136-145) Potassium Level 3.8 mmol/L (3.5-5.1) 4.1 mmol/L (3.5-5.1) Chloride Level 106 mmol/L (98-107) 105 mmol/L (98-107) Carbon Dioxide Level 24 mmol/L (21-32) 26 mmol/L (21-32) Anion Gap 11 (6-14) 9 (6-14) Blood Urea Nitrogen 11 mg/dL (8-26) 11 mg/dL (8-26) Creatinine 1.1 mg/dL (0.7-1.3) 1.2 mg/dL (0.7-1.3) Estimated GFR (Cockcroft-Gault) 88.4 80.0 BUN/Creatinine Ratio 10 (6-20) Glucose Level 135 mg/dL (70-99) 100 mg/dL (70-99) Calcium Level 8.6 mg/dL (8.5-10.1) 8.1 mg/dL (8.5-10.1) Magnesium Level 1.9 mg/dL (1.8-2.4) Total Bilirubin 0.3 mg/dL (0.2-1.0) 0.3 mg/dL (0.2-1.0) Aspartate Amino Transf (AST/SGOT) 56 U/L (15-37) 48 U/L (15-37) Alanine Aminotransferase (ALT/SGPT) 101 U/L (16-63) 98 U/L (16-63) Alkaline Phosphatase 48 U/L (46-116) 47 U/L (46-116) Creatine Kinase 1048 U/L (39-308) 652 U/L (39-308) Troponin I Quantitative 0.025 ng/mL (0.000-0.055) 0.039 ng/mL (0.000-0.055) < 0.017 ng/mL (0.000-0.055) CN-Ppb-D-Type Natriuretic Peptide 49 pg/mL (0-124) Total Protein 6.7 g/dL (6.4-8.2) 6.7 g/dL (6.4-8.2) Albumin 3.3 g/dL (3.4-5.0) 3.4 g/dL (3.4-5.0) Albumin/Globulin Ratio 1.0 (1.0-1.7) Direct Bilirubin 0.1 mg/dL (0.0-0.2) Triglycerides Level 98 mg/dL (0-150) Cholesterol Level 248 mg/dL (0-200) LDL Cholesterol, Calculated 212 mg/dL (0-100) VLDL Cholesterol, Calculated 20 mg/dL (0-40) Non-HDL Cholesterol Calculated 232 mg/dL (0-129) HDL Cholesterol 16 mg/dL (40-60) Cholesterol/HDL Ratio 15.5 Thyroid Stimulating Hormone (TSH) 0.884 uIU/mL (0.358-3.74) Review of Systems Review of Systems no fever, chills, sob or chest pain Assessment and Plan Assessmemt and Plan Problems Medical Problems: (1) Chest pain Status: Acute (2) Hypertensive urgency Status: Acute (3) Rhabdomyolysis Status: Acute Problems: Comment Review of Relevant I have reviewed the following items gabo (where applicable) has been applied. Labs Laboratory Tests Test 01/14/17 18:15 01/15/17 00:50 01/15/17 07:20 White Blood Count 9.8 x10^3/uL (4.0-11.0) 8.9 x10^3/uL (4.0-11.0) Red Blood Count 4.94 x10^6/uL (4.30-5.70) 5.06 x10^6/uL (4.30-5.70) Hemoglobin 15.0 g/dL (13.0-17.5) 15.3 g/dL (13.0-17.5) Hematocrit 44.1 % (39.0-53.0) 44.6 % (39.0-53.0) Mean Corpuscular Volume 89 fL (79-100) 88 fL (79-100) Mean Corpuscular Hemoglobin 30 pg (25-35) 30 pg (25-35) Mean Corpuscular Hemoglobin Concent 34 g/dL (31-37) 34 g/dL (31-37) Red Cell Distribution Width 14.0 % (11.5-14.5) 14.3 % (11.5-14.5) Platelet Count 388 x10^3/uL (140-400) 396 x10^3/uL (140-400) Neutrophils (%) (Auto) 67 % (31-73) 64 % (31-73) Lymphocytes (%) (Auto) 24 % (24-48) 28 % (24-48) Monocytes (%) (Auto) 7 % (0-9) 7 % (0-9) Eosinophils (%) (Auto) 1 % (0-3) 1 % (0-3) Basophils (%) (Auto) 1 % (0-3) 0 % (0-3) Neutrophils # (Auto) 6.6 x10^3uL (1.8-7.7) 5.6 x10^3uL (1.8-7.7) Lymphocytes # (Auto) 2.4 x10^3/uL (1.0-4.8) 2.5 x10^3/uL (1.0-4.8) Monocytes # (Auto) 0.6 x10^3/uL (0.0-1.1) 0.6 x10^3/uL (0.0-1.1) Eosinophils # (Auto) 0.1 x10^3/uL (0.0-0.7) 0.1 x10^3/uL (0.0-0.7) Basophils # (Auto) 0.1 x10^3/uL (0.0-0.2) 0.0 x10^3/uL (0.0-0.2) Prothrombin Time 13.5 SEC (11.7-14.0) Prothromb Time International Ratio 1.1 (0.8-1.1) Activated Partial Thromboplast Time 24 SEC (24-38) Sodium Level 141 mmol/L (136-145) 140 mmol/L (136-145) Potassium Level 3.8 mmol/L (3.5-5.1) 4.1 mmol/L (3.5-5.1) Chloride Level 106 mmol/L (98-107) 105 mmol/L (98-107) Carbon Dioxide Level 24 mmol/L (21-32) 26 mmol/L (21-32) Anion Gap 11 (6-14) 9 (6-14) Blood Urea Nitrogen 11 mg/dL (8-26) 11 mg/dL (8-26) Creatinine 1.1 mg/dL (0.7-1.3) 1.2 mg/dL (0.7-1.3) Estimated GFR (Cockcroft-Gault) 88.4 80.0 BUN/Creatinine Ratio 10 (6-20) Glucose Level 135 mg/dL (70-99) 100 mg/dL (70-99) Calcium Level 8.6 mg/dL (8.5-10.1) 8.1 mg/dL (8.5-10.1) Magnesium Level 1.9 mg/dL (1.8-2.4) Total Bilirubin 0.3 mg/dL (0.2-1.0) 0.3 mg/dL (0.2-1.0) Aspartate Amino Transf (AST/SGOT) 56 U/L (15-37) 48 U/L (15-37) Alanine Aminotransferase (ALT/SGPT) 101 U/L (16-63) 98 U/L (16-63) Alkaline Phosphatase 48 U/L (46-116) 47 U/L (46-116) Creatine Kinase 1048 U/L (39-308) 652 U/L (39-308) Troponin I Quantitative 0.025 ng/mL (0.000-0.055) 0.039 ng/mL (0.000-0.055) < 0.017 ng/mL (0.000-0.055) KJ-Fcv-E-Type Natriuretic Peptide 49 pg/mL (0-124) Total Protein 6.7 g/dL (6.4-8.2) 6.7 g/dL (6.4-8.2) Albumin 3.3 g/dL (3.4-5.0) 3.4 g/dL (3.4-5.0) Albumin/Globulin Ratio 1.0 (1.0-1.7) Direct Bilirubin 0.1 mg/dL (0.0-0.2) Triglycerides Level 98 mg/dL (0-150) Cholesterol Level 248 mg/dL (0-200) LDL Cholesterol, Calculated 212 mg/dL (0-100) VLDL Cholesterol, Calculated 20 mg/dL (0-40) Non-HDL Cholesterol Calculated 232 mg/dL (0-129) HDL Cholesterol 16 mg/dL (40-60) Cholesterol/HDL Ratio 15.5 Thyroid Stimulating Hormone (TSH) 0.884 uIU/mL (0.358-3.74) Laboratory Tests Test 01/14/17 18:15 01/15/17 00:50 01/15/17 07:20 White Blood Count 9.8 x10^3/uL (4.0-11.0) 8.9 x10^3/uL (4.0-11.0) Red Blood Count 4.94 x10^6/uL (4.30-5.70) 5.06 x10^6/uL (4.30-5.70) Hemoglobin 15.0 g/dL (13.0-17.5) 15.3 g/dL (13.0-17.5) Hematocrit 44.1 % (39.0-53.0) 44.6 % (39.0-53.0) Mean Corpuscular Volume 89 fL (79-100) 88 fL (79-100) Mean Corpuscular Hemoglobin 30 pg (25-35) 30 pg (25-35) Mean Corpuscular Hemoglobin Concent 34 g/dL (31-37) 34 g/dL (31-37) Red Cell Distribution Width 14.0 % (11.5-14.5) 14.3 % (11.5-14.5) Platelet Count 388 x10^3/uL (140-400) 396 x10^3/uL (140-400) Neutrophils (%) (Auto) 67 % (31-73) 64 % (31-73) Lymphocytes (%) (Auto) 24 % (24-48) 28 % (24-48) Monocytes (%) (Auto) 7 % (0-9) 7 % (0-9) Eosinophils (%) (Auto) 1 % (0-3) 1 % (0-3) Basophils (%) (Auto) 1 % (0-3) 0 % (0-3) Neutrophils # (Auto) 6.6 x10^3uL (1.8-7.7) 5.6 x10^3uL (1.8-7.7) Lymphocytes # (Auto) 2.4 x10^3/uL (1.0-4.8) 2.5 x10^3/uL (1.0-4.8) Monocytes # (Auto) 0.6 x10^3/uL (0.0-1.1) 0.6 x10^3/uL (0.0-1.1) Eosinophils # (Auto) 0.1 x10^3/uL (0.0-0.7) 0.1 x10^3/uL (0.0-0.7) Basophils # (Auto) 0.1 x10^3/uL (0.0-0.2) 0.0 x10^3/uL (0.0-0.2) Prothrombin Time 13.5 SEC (11.7-14.0) Prothromb Time International Ratio 1.1 (0.8-1.1) Activated Partial Thromboplast Time 24 SEC (24-38) Sodium Level 141 mmol/L (136-145) 140 mmol/L (136-145) Potassium Level 3.8 mmol/L (3.5-5.1) 4.1 mmol/L (3.5-5.1) Chloride Level 106 mmol/L (98-107) 105 mmol/L (98-107) Carbon Dioxide Level 24 mmol/L (21-32) 26 mmol/L (21-32) Anion Gap 11 (6-14) 9 (6-14) Blood Urea Nitrogen 11 mg/dL (8-26) 11 mg/dL (8-26) Creatinine 1.1 mg/dL (0.7-1.3) 1.2 mg/dL (0.7-1.3) Estimated GFR (Cockcroft-Gault) 88.4 80.0 BUN/Creatinine Ratio 10 (6-20) Glucose Level 135 mg/dL (70-99) 100 mg/dL (70-99) Calcium Level 8.6 mg/dL (8.5-10.1) 8.1 mg/dL (8.5-10.1) Magnesium Level 1.9 mg/dL (1.8-2.4) Total Bilirubin 0.3 mg/dL (0.2-1.0) 0.3 mg/dL (0.2-1.0) Aspartate Amino Transf (AST/SGOT) 56 U/L (15-37) 48 U/L (15-37) Alanine Aminotransferase (ALT/SGPT) 101 U/L (16-63) 98 U/L (16-63) Alkaline Phosphatase 48 U/L (46-116) 47 U/L (46-116) Creatine Kinase 1048 U/L (39-308) 652 U/L (39-308) Troponin I Quantitative 0.025 ng/mL (0.000-0.055) 0.039 ng/mL (0.000-0.055) < 0.017 ng/mL (0.000-0.055) DD-Pio-Y-Type Natriuretic Peptide 49 pg/mL (0-124) Total Protein 6.7 g/dL (6.4-8.2) 6.7 g/dL (6.4-8.2) Albumin 3.3 g/dL (3.4-5.0) 3.4 g/dL (3.4-5.0) Albumin/Globulin Ratio 1.0 (1.0-1.7) Direct Bilirubin 0.1 mg/dL (0.0-0.2) Triglycerides Level 98 mg/dL (0-150) Cholesterol Level 248 mg/dL (0-200) LDL Cholesterol, Calculated 212 mg/dL (0-100) VLDL Cholesterol, Calculated 20 mg/dL (0-40) Non-HDL Cholesterol Calculated 232 mg/dL (0-129) HDL Cholesterol 16 mg/dL (40-60) Cholesterol/HDL Ratio 15.5 Thyroid Stimulating Hormone (TSH) 0.884 uIU/mL (0.358-3.74) Medications Current Medications Aspirin (Ecotrin) 325 mg 1X ONCE PO Last administered on 01/14/17 18:24; Start 01/14/17 at 18:30; Stop 01/14/17 at 18:31; Status DC Nitroglycerin (Nitrostat) 0.4 mg PRN Q5MIN PRN SL CHEST PAIN Last administered on 01/14/17 18:31; Start 01/14/17 at 18:30 Ondansetron HCl (Zofran) 4 mg PRN Q8HRS PRN IV NAUSEA/VOMITING; Start 01/14/17 at 19:15; Stop 01/15/17 at 19:14 Fentanyl Citrate (Fentanyl 2ml Vial) 50 mcg PRN Q2HR PRN IV PAIN; Start at 19:15; Stop 01/15/17 at 19:14 Sodium Chloride 1,000 ml @ 200 mls/hr 1X ONCE IV Last administered on 19:56; Start 01/14/17 at 19:15; Stop 01/15/17 at 00:14; Status DC Acetaminophen (Tylenol) 325 mg PRN Q6HRS PRN PO MILD PAIN / TEMP; Start at 19:45 Acetaminophen/ Hydrocodone Bitart (Lortab 5/325) 1 tab PRN Q6HRS PRN PO MODERATE TO SEVERE PAIN; Start 01/14/17 at 19:45 Hydralazine HCl (Apresoline) 10 mg PRN Q4HRS PRN IVP ELEVATED BP, SEE COMMENTS ; Start 01/14/17 at 19:45 Ondansetron HCl (Zofran) 4 mg PRN Q8HRS PRN IV NAUSEA/VOMITING; Start 01/14/17 at 19:45 Albuterol Sulfate (Ventolin Neb Soln) 2.5 mg PRN Q4HRS PRN NEB SHORTNESS OF BREATH; Start 01/14/17 at 19:45 Zolpidem Tartrate (Ambien) 5 mg 1X ONCE PO Last administered on 01/14/17 23: 44; Start 01/14/17 at 23:45; Stop 01/14/17 at 23:46; Status DC Amlodipine Besylate (Norvasc) 10 mg DAILY PO Last administered on 01/15/17 11: 10; Start 01/15/17 at 12:00 Losartan Potassium (Cozaar) 100 mg DAILY PO Last administered on 01/15/17 11: 09; Start 01/15/17 at 11:30 Hydralazine HCl (Apresoline) 50 mg TID PO ; Start 01/15/17 at 14:00 Regadenoson (Lexiscan) 0.4 mg 1X ONCE IV Last administered on 01/15/17 13:49 ; Start 01/15/17 at 12:15; Stop 01/15/17 at 12:16; Status DC Atorvastatin Calcium (Lipitor) 20 mg QHS PO ; Start 01/15/17 at 21:00 Lorazepam (Ativan) 0.5 mg 1X ONCE IV Last administered on 01/15/17 13:21; Start 01/15/17 at 13:15; Stop 01/15/17 at 13:16; Status DC Active Scripts Active Proair Hfa Inhaler (Albuterol Sulfate) 8.5 Gm Hfa.aer.ad 1 Puff INH PRN Q6HRS PRN Montelukast Sodium Tablet (Montelukast Sodium) 10 Mg Tablet 10 Mg PO QHS Amlodipine Besylate 5 Mg Tablet 5 Mg PO DAILY Carvedilol 6.25 Mg Tablet 12.5 Mg PO BIDWMEALS Reported Labetalol Hcl 200 Mg Tablet 1 Tab PO BID Vitals/I & O Vital Sign - Last 24 Hours 01/14/17 01/14/17 01/14/17 01/14/17 18:05 18:25 18:30 18:31 Temp 98.3 98.3 Pulse 92 87 100 102 Resp 18 23 B/P (MAP) 176/94 (121) 176/94 147/67 (93) 147/67 Pulse Ox 98 96 O2 Delivery Room Air Room Air 01/14/17 01/14/17 01/14/17 01/14/17 19:00 19:30 20:00 20:30 Pulse 92 90 83 92 Resp 20 21 20 22 B/P (MAP) 122/68 (86) 87/52 (64) 143/88 (106) 171/72 (105) Pulse Ox 96 97 98 98 01/14/17 01/14/17 01/14/17 01/14/17 21:00 21:45 22:01 23:05 Temp 98.2 97.5 98.2 97.5 Pulse 96 91 83 Resp 20 18 15 B/P (MAP) 166/65 (98) 175/67 (103) 158/70 (99) Pulse Ox 97 96 98 O2 Delivery Room Air Non-Rebreather Room Air Room Air 01/15/17 01/15/17 01/15/17 01/15/17 03:10 07:00 08:00 08:13 Temp 98.8 97.9 98.8 97.9 Pulse 84 88 Resp 11 17 B/P (MAP) 163/92 (115) 174/88 (116) Pulse Ox 98 97 97 O2 Delivery Room Air Room Air Non-Rebreather Room Air 01/15/17 01/15/17 01/15/17 11:00 11:09 11:10 Temp 98.0 98.0 Pulse 88 88 89 Resp 18 B/P (MAP) 168/84 (112) 168/79 168/79 Pulse Ox 97 O2 Delivery Room Air Intake and Output 01/14/17 01/14/17 01/15/17 15:00 23:00 07:00 Output Total 350 ml Balance -350 ml JENN GALINDO MD Jan 15, 2017 14:09
[2017-01-15] MEDS ORDERED: IV NORMAL SALINE 1000ML BAG 1,000 ML IV ONE (14:15)
[2017-01-15] MEDS: hydrALAZINE 20 MG/ML VIAL. IVP PRN ×2 (14:22→23:39)
[2017-01-15 15:00] VITALS: BP 169/71
--- NOTE | 2017-01-15 17:07 | RAD ---
APPROVED REPORT Test Type: Pharmacological Stress Nurse/Tech: Nadia Del Real R.N. Test Indications: Chest pain Cardiac History: SEE EMR Medications: SEE EMR Medical History: SEE EMR Resting ECG: SR Resting Heart Rate: 85 bpm Resting Blood Pressure: 225/75mmHg Pretest Chest Pain: None Nurse/Tech Notes S1S2, lungs CTA, denieds chest pain, SOA and dizziness. Consent: The procedure was explained to the patient in lay terms. Informed consent was witnessed. Roosevelt eout was entered into [employer] History and Stress Test performed by Nadia Del Real R.N. Pharm. Details Pharmacologic stress testing was performed using 0.4mg per 5ml of regadenoson given intravenously ove r 7-10 seconds. Stress Symptoms Slightly hot all over. POST EXERCISE Reason for Termination: Infusion complete Max HR: 115 bpm Max Blood Pressure: 216/75mmHg Blood Pressure response to exercise: Abnormal blood pressure response during stress. Heart Rate response to exercise: Normal Chest Pain: No. Arrhythmia: No. ST Change: No. INTERPRETATION Stress EKG Conclusion: The resting EKG showed a sinus rhythm with nonspecific ST-T wave changes. The stress EKG showed no significant changes from baseline. No EKG evidence of stress-induced ischemia. Imaging Protocol IMAGE PROTOCOL: Rest Tc-99m/stress Tc-99m 1 day Rest: Stress: Viability: Radiopharm.Tc99m NowogvwylId42v Sestamibi Oedo47uIt 34mCi Duration 15min. 10min. Img Date 01/15/2017 01/15/2017 Inj-Img Eqxw13out. 45min. Rest Admin Site:IV - Left AntecubitalAdministrator:GERALDINE Campos, ARRT (R)(N) Stress Admin Site: IV - Left AntecubitalAdministrator: GERALDINE Campos, ARRT (R)(N) STRESS DATA End Diast. Vol.156.0mlAv. Heart Qhqw918.0bpm End Syst. Vol.50.0mlCO Index BSA10.8L/min Myocardial Kqbf630.0gEject. Ledzkbuq91.0% Stress Rates Pk. Fill Rate3.15EDV/secLVtime Pk. Fill 145.63msec Pk. Empty Rate5.26ESV/secLVtime Pk. Olpoa168.91msec 1/3 Pk. Fill1.87EDV/sec Stress Scores Regional WT1.00Summed WT15.00 Regional WM0.00Summed WM0.00 LV Perfusion The stress scans showed no significant defects. The rest scans showed no significant defects. Nuclear imaging shows no reversible ischemia or infarct. Wall Motion Left ventricular systolic function is normal with an ejection fraction of 68%. LV Perf. Quant 17 Seg. SSS0.00 17 Seg. SRS0.00 17 Seg. SDS0.00 Stress Defect Extent (% LAD)0.00Rest Defect Extent (% LAD)0.00Rev. Defect Extent (% LAD)0.00 Stress Defect Extent (% LCX) 0.00Rest Defect Extent (% LCX)0.00Rev. Defect Extent (% LCX)0.00 Stress Defect Extent (% RCA)0.00Rest Defect Extent (% RCA)0.00Rev. Defect Extent (% RCA)0.00 Stress Defect Extent (% YUSUF)0.00Rest Defect Extent (% YUSUF)0.00Rev. Defect Extent (% YUSUF)0.00 Conclusion 1. No EKG evidence of stress-induced ischemia. 2. Nuclear imaging shows no reversible ischemia or infarct. 3. Normal left ventricular systolic function with an ejection fraction of 68%. 4. Low risk Lexiscan nuclear stress test.
--- NOTE | 2017-01-15 17:47 | CARD ---
APPROVED REPORT EXAM: Two-dimensional and M-mode echocardiogram with Doppler and color Doppler. Other Information Quality : Average Rhythm : NSR INDICATION Dyspnea 2D DIMENSIONS RVDd3.5 (2.9-3.5cm)Left Atrium(2D)3.7 (1.6-4.0cm) IVSd1.4 (0.7-1.1cm)Aortic Root(2D)3.2 (2.0-3.7cm) LVDd5.0 (3.9-5.9cm)LVOT Diameter2.2 (1.8-2.4cm) PWd1.4 (0.7-1.1cm)LVDs3.0 (2.5-4.0cm) FS (%) 35.6 %SV80.0 ml LVEF(%)64.7 (>50%) Aortic Valve AoV Peak Conrado.107.1cm/sAoV VTI17.6cm AO Peak GR.4.6mmHgLVOT Peak Conrado.86.0cm/s LVOT VTI 15.12cmAO Mean GR.3mmHg JUVENTINO (VMAX)3.37sm9PNI (VTI)3.25cm2 Mitral Valve MV E Hmjybign51.2cm/sMV DECEL DAHU73pk MV A Cydajrfi79.9cm/sMV JEO57ar E/A Ratio0.6MV A Mvfuooty27tc MVA (PHT)9.64cm2 TDI E/Lateral E'4.9E/Medial E'6.2 Pulmonary Valve PV Peak Hibqozli426.7cm/sPV Peak Grad.4mmHg RVOT VTI17.1cm Tricuspid Valve TR P. Lkicwjvo979fd/sRAP KBVVGWYQ8zuEe TR Peak Gr.89olXjVIPH82roDp Pulmonary Vein S1 Rvqpronz49.6cm/sD2 Wrkcypag29.0cm/s LEFT VENTRICLE The left ventricle is normal size. There is mild concentric left ventricular hypertrophy. Left ventri zehra systolic function is normal. The Ejection Fraction is 60-65%. There is normal LV segmental wall m otion. Tissue Doppler imaging reveals mild left ventricular diastolic dysfunction. Transmitral Dopple r flow pattern is Grade I-abnormal relaxation pattern. There is no ventricular septal defect visualiz ed. RIGHT VENTRICLE The right ventricle is normal size. The right ventricular systolic function is normal. ATRIA The left atrium size is normal. The right atrium size is normal. The interatrial septum is intact wit h no evidence for an atrial septal defect or patent foramen ovale as noted on 2-D or Doppler imaging. AORTIC VALVE The aortic valve is normal in structure and function. The aortic valve is trileaflet. Doppler and Col or Flow revealed no significant aortic regurgitation. There is no significant aortic valvular stenosi s. MITRAL VALVE The mitral valve is normal in structure and function. There is no mitral valve stenosis. Doppler and Color Flow revealed no mitral valve regurgitation noted. TRICUSPID VALVE The tricuspid valve is normal in structure and function. Doppler and Color Flow revealed trace to mil d tricuspid regurgitation. The PA pressure was estimated at 35 mmHg. There is no tricuspid valve sten osis. PULMONIC VALVE The pulmonary valve is normal in structure and function. Doppler and Color Flow revealed trace pulmon ic valvular regurgitation. There is no pulmonic valvular stenosis. GREAT VESSELS The aortic root is normal in size. Normal pulmonary venous flow (Doppler). The IVC is normal in size and collapses >50% with inspiration. PERICARDIAL EFFUSION There is no evidence of significant pericardial effusion. Critical Notification Critical Value: No <Conclusion> The left ventricle is normal size. Left ventricle systolic function is normal. The Ejection Fraction is 60-65%. There is mild concentric left ventricular hypertrophy. There is no significant aortic valvular stenosis. Doppler and Color Flow revealed no significant aortic regurgitation. Doppler and Color Flow revealed no mitral valve regurgitation noted. Doppler and Color Flow revealed trace to mild tricuspid regurgitation. The PA pressure was estimated at 35 mmHg.
[2017-01-15 19:15] VITALS: BP 167/74
[2017-01-15] MEDS ORDERED: ATORVASTATIN CALCIUM 20 MG TABLET PO SCH (21:00)
[2017-01-15] MEDS ORDERED: ZOLPIDEM 5 MG TABLET. PO PRN (22:00)
[2017-01-15 23:15] VITALS: BP 193/92
[2017-01-15 23:36] LABS: BILIRUBIN,URINE NEGATIVE (NEG); GLUCOSE,URINE NEGATIVE (NEG); NITRITE,URINE NEGATIVE (NEG); PROTEIN,URINE NEGATIVE (NEG-TRACE)
[2017-01-15 23:42] LABS: BACTERIA,URINE 0 /HPF (0-FEW); RBC,URINE 0 /HPF (0-2); SQUAMOUS EPITHELIAL CELL,UR OCC /LPF; WBC,URINE RARE /HPF (0-4)
[2017-01-16 03:40] VITALS: BP 207/94
[2017-01-16] MEDS: hydrALAZINE 20 MG/ML VIAL. IVP PRN (04:03)
[2017-01-16 05:12] LABS: BASO % 1 % (0-3); EOS % 1 % (0-3); HEMATOCRIT 46.2 % (39.0-53.0); LYMPH # 2.5 x10^3/uL (1.0-4.8); LYMPH % 24 % (24-48); MEAN CORPUSCULAR HEMOGLOBIN 30 pg (25-35); MEAN CORPUSCULAR HGB CONC 33 g/dL (31-37); MEAN CORPUSCULAR VOLUME 91 fL (79-100); MONO % 7 % (0-9); NEUT % 67 % (31-73); PLATELET COUNT 363 x10^3/uL (140-400); RED BLOOD COUNT 5.11 x10^6/uL (4.30-5.70); RED CELL DISTRIBUTION WIDTH 14.4 % (11.5-14.5); WHITE BLOOD COUNT 10.7 x10^3/uL (4.0-11.0)
[2017-01-16 05:31] LABS: CALCIUM 9.4 mg/dL (8.5-10.1); GFR 98.7; POTASSIUM 4.2 mmol/L (3.5-5.1)
[2017-01-16 05:55] LABS: CKMB MASS 2.5 ng/mL (0.0-3.6)
[2017-01-16 07:30] VITALS: BP 134/68
[2017-01-16] MEDS ORDERED: LABETALOL 20 MG/4 ML DISP.SYRIN. IVP PRN (07:30)
[2017-01-16] MEDS: LOSARTAN POTASSIUM 50 MG TABLET. PO SCH (08:21)
[2017-01-16] MEDS: amLODIPine BESYLATE 10 MG TABLET PO SCH (08:21)
--- NOTE | 2017-01-16 09:23 | RAD ---
Ultrasound of the abdomen limited. History: Elevated LFTs Ultrasound was used to evaluate the liver and right upper quadrant. Pancreas was normal in appearance, portions of the tail of the pancreas were poorly seen.. Proximal aorta and vena cava were unremarkable. Liver was within normal limits in size and appearance without a focal lesion. There was flow in the portal vein with color imaging. Right kidney was 11.3 cm in length without a mass or hydronephrosis. Gallbladder was normal without gallstones or gallbladder wall thickening. Common duct was normal measuring 4 mm. Impression: 1. Normal ultrasound of the liver, gallbladder and right upper quadrant.
[2017-01-16] MEDS ORDERED: METOPROLOL TART IMMED RELEASE 25 MG TABLET. PO SCH (10:45)
[2017-01-16 11:00] VITALS: BP 163/66
[2017-01-16 13:38] VITALS: BP 163/66
[2017-01-16] MEDS ORDERED: METO25TA4 PO (13:57)
[2017-01-16] MEDS ORDERED: ATOR20TA58 PO (13:57)
[2017-01-16] MEDS ORDERED: HYDR-2869 PO (13:57)
[2017-01-16] MEDS ORDERED: LOSA50TA2 PO (13:57)
[2017-01-16] MEDS ORDERED: AMLO10TA2 PO (13:57)
--- NOTE | 2017-01-16 14:00 | PDOC3 ---
Discharge Summary [facility] Date of Admission: Jan 14, 2017 Discharge Date: Jan 16, 2017 Admitting Diagnosis Chest pain, 2/2 muscular pain likely Mild elevation of troponins Hypertension accellerated. Hypogonadism: On testosterone therapy HLD mild rhabdo h/o TIA tobaccoism possible MYLA ELEVATED transaminites, likely 2/2 ROBERTS Problems: Final Diagnosis CONSULTS card Brief Hospital Course Mr. Solomon is a 41 old M, muscular kadeem , on testosterone not sure it is for hypogonodism or muscle build, comes for chest pain when wresting with his little son. ECHO, MPI all neg mild high LFT, CK, better after ivf. US liver neg. dc home with new HTN meds, see [facility]. dc time 40min General: Alert, Oriented X3, Cooperative, No acute distress Heart: Regular rate (SR), Normal S1, Normal S2 Lungs: Clear Abdomen: Soft, No tenderness Extremities: No cyanosis, No edema Skin: No breakdown, No significant lesion Patient History: Family history: Cardiovascular disease (situation) 33 FATHER 32 MOTHER Family history: Diabetes mellitus (situation) 33 FATHER 32 MOTHER Family history: Hypertension (situation) 33 FATHER 32 MOTHER Family history: Obesity (situation) 32 MOTHER Problems: Disposition home CONDITION AT DISCHARGE: Improved, Stable Diet cardiac Scheduled Amlodipine Besylate (Amlodipine Besylate), 10 MG PO DAILY Atorvastatin Calcium (Atorvastatin Calcium), 20 MG PO QHS Hydralazine Hcl (Hydralazine Hcl), 50 MG PO TID Losartan Potassium (Cozaar), 100 MG PO DAILY Metoprolol Tartrate (Metoprolol Tartrate), 25 MG PO BID Montelukast Sodium (Montelukast Sodium Tablet), 10 MG PO QHS Scheduled PRN Albuterol Sulfate (Proair Hfa Inhaler), 1 PUFF INH PRN Q6HRS PRN for SHORTNESS OF BREATH Discontinued Medications Amlodipine Besylate (Amlodipine Besylate), 5 MG PO DAILY Carvedilol (Carvedilol), 12.5 MG PO BIDWMEALS Labetalol Hcl (Labetalol Hcl), 1 TAB PO BID, (Reported) Lisinopril (Lisinopril), 1 TAB PO DAILY, (Reported) JENN GALINDO MD Jan 16, 2017 14:00
--- NOTE | 2017-01-16 14:38 | PDOC ---
PROGRESS NOTES Subjective Subjective The patient looks and feels well today. Objective Objective Vital Signs Date Time Temp Pulse Resp B/P (MAP) Pulse Ox O2 Delivery O2 Flow Rate FiO2 01/16/17 13:38 107 163/66 01/16/17 11:00 97.9 18 94 Room Air 97.9 Intake and Output 01/16/17 07:00 Intake Total 1350 ml Output Total 1475 ml Balance -125 ml Intake Oral 1350 ml Output Urine Total 1475 ml # Voids 4 Physical Exam Abdomen: Normal bowel sounds Heart: Regular rate General: No acute distress Lungs: Clear to auscultation Assessment Assessment Problems Medical Problems: (1) Chest pain Status: Acute (2) Hypertensive urgency Status: Acute (3) Rhabdomyolysis Status: Acute ASSESSMENT/PLAN 1. Chest pain: Resolved. Echo and nuclear stress test normal. 2. Presyncope: reports inadequate po hydration, bradycardia/ and possible hypotensive episode contributing 3. Sinus Bradycardia: Now sinus tachycardia. We will reinitiate low-dose beta blockers. 4. Accelerated HTN: Improved control. Continuing medical treatment as above. 5. HLP: testosterone therapy contributing 6. Transaminitis/Rhabdomyolysis: No abd pain. Likely from weight lifting, creatine powder use and testosterone therapy Comment Review of Relevant I have reviewed the following items gabo (where applicable) has been applied. Labs Laboratory Tests Test 01/14/17 18:15 01/15/17 00:50 01/15/17 07:20 01/15/17 22:30 White Blood Count 9.8 x10^3/uL (4.0-11.0) 8.9 x10^3/uL (4.0-11.0) Red Blood Count 4.94 x10^6/uL (4.30-5.70) 5.06 x10^6/uL (4.30-5.70) Hemoglobin 15.0 g/dL (13.0-17.5) 15.3 g/dL (13.0-17.5) Hematocrit 44.1 % (39.0-53.0) 44.6 % (39.0-53.0) Mean Corpuscular Volume 89 fL (79-100) 88 fL (79-100) Mean Corpuscular Hemoglobin 30 pg (25-35) 30 pg (25-35) Mean Corpuscular Hemoglobin Concent 34 g/dL (31-37) 34 g/dL (31-37) Red Cell Distribution Width 14.0 % (11.5-14.5) 14.3 % (11.5-14.5) Platelet Count 388 x10^3/uL (140-400) 396 x10^3/uL (140-400) Neutrophils (%) (Auto) 67 % (31-73) 64 % (31-73) Lymphocytes (%) (Auto) 24 % (24-48) 28 % (24-48) Monocytes (%) (Auto) 7 % (0-9) 7 % (0-9) Eosinophils (%) (Auto) 1 % (0-3) 1 % (0-3) Basophils (%) (Auto) 1 % (0-3) 0 % (0-3) Neutrophils # (Auto) 6.6 x10^3uL (1.8-7.7) 5.6 x10^3uL (1.8-7.7) Lymphocytes # (Auto) 2.4 x10^3/uL (1.0-4.8) 2.5 x10^3/uL (1.0-4.8) Monocytes # (Auto) 0.6 x10^3/uL (0.0-1.1) 0.6 x10^3/uL (0.0-1.1) Eosinophils # (Auto) 0.1 x10^3/uL (0.0-0.7) 0.1 x10^3/uL (0.0-0.7) Basophils # (Auto) 0.1 x10^3/uL (0.0-0.2) 0.0 x10^3/uL (0.0-0.2) Prothrombin Time 13.5 SEC (11.7-14.0) Prothromb Time International Ratio 1.1 (0.8-1.1) Activated Partial Thromboplast Time 24 SEC (24-38) Sodium Level 141 mmol/L (136-145) 140 mmol/L (136-145) Potassium Level 3.8 mmol/L (3.5-5.1) 4.1 mmol/L (3.5-5.1) Chloride Level 106 mmol/L (98-107) 105 mmol/L (98-107) Carbon Dioxide Level 24 mmol/L (21-32) 26 mmol/L (21-32) Anion Gap 11 (6-14) 9 (6-14) Blood Urea Nitrogen 11 mg/dL (8-26) 11 mg/dL (8-26) Creatinine 1.1 mg/dL (0.7-1.3) 1.2 mg/dL (0.7-1.3) Estimated GFR (Cockcroft-Gault) 88.4 80.0 BUN/Creatinine Ratio 10 (6-20) Glucose Level 135 mg/dL (70-99) 100 mg/dL (70-99) Calcium Level 8.6 mg/dL (8.5-10.1) 8.1 mg/dL (8.5-10.1) Magnesium Level 1.9 mg/dL (1.8-2.4) Total Bilirubin 0.3 mg/dL (0.2-1.0) 0.3 mg/dL (0.2-1.0) Aspartate Amino Transf (AST/SGOT) 56 U/L (15-37) 48 U/L (15-37) Alanine Aminotransferase (ALT/SGPT) 101 U/L (16-63) 98 U/L (16-63) Alkaline Phosphatase 48 U/L (46-116) 47 U/L (46-116) Creatine Kinase 1048 U/L (39-308) 652 U/L (39-308) Troponin I Quantitative 0.025 ng/mL (0.000-0.055) 0.039 ng/mL (0.000-0.055) < 0.017 ng/mL (0.000-0.055) [id number]-[id number]-Type Natriuretic Peptide 49 pg/mL (0-124) Total Protein 6.7 g/dL (6.4-8.2) 6.7 g/dL (6.4-8.2) Albumin 3.3 g/dL (3.4-5.0) 3.4 g/dL (3.4-5.0) Albumin/Globulin Ratio 1.0 (1.0-1.7) Direct Bilirubin 0.1 mg/dL (0.0-0.2) Triglycerides Level 98 mg/dL (0-150) Cholesterol Level 248 mg/dL (0-200) LDL Cholesterol, Calculated 212 mg/dL (0-100) VLDL Cholesterol, Calculated 20 mg/dL (0-40) Non-HDL Cholesterol Calculated 232 mg/dL (0-129) HDL Cholesterol 16 mg/dL (40-60) Cholesterol/HDL Ratio 15.5 Thyroid Stimulating Hormone (TSH) 0.884 uIU/mL (0.358-3.74) Urine Collection Type Unknown Urine Color Yellow Urine Clarity Clear Urine pH 8.0 Urine Specific [place] 1.020 Urine Protein Negative mg/dL (NEG-TRACE) Urine Glucose (UA) Negative mg/dL (NEG) Urine Ketones (Stick) Negative mg/dL (NEG) Urine Blood Negative (NEG) Urine Nitrite Negative (NEG) Urine Bilirubin Negative (NEG) Urine Urobilinogen Dipstick 1.0 mg/dL (0.2 mg/dL) Urine Leukocyte Esterase Negative (NEG) Urine RBC 0 /HPF (0-2) Urine WBC Rare /HPF (0-4) Urine Squamous Epithelial Cells Occ /LPF Urine Bacteria 0 /HPF (0-FEW) Test 01/16/17 02:55 01/16/17 04:30 White Blood Count 10.7 x10^3/uL (4.0-11.0) Red Blood Count 5.11 x10^6/uL (4.30-5.70) Hemoglobin 15.0 g/dL (13.0-17.5) Hematocrit 46.2 % (39.0-53.0) Mean Corpuscular Volume 91 fL (79-100) Mean Corpuscular Hemoglobin 30 pg (25-35) Mean Corpuscular Hemoglobin Concent 33 g/dL (31-37) Red Cell Distribution Width 14.4 % (11.5-14.5) Platelet Count 363 x10^3/uL (140-400) Neutrophils (%) (Auto) 67 % (31-73) Lymphocytes (%) (Auto) 24 % (24-48) Monocytes (%) (Auto) 7 % (0-9) Eosinophils (%) (Auto) 1 % (0-3) Basophils (%) (Auto) 1 % (0-3) Neutrophils # (Auto) 7.2 x10^3uL (1.8-7.7) Lymphocytes # (Auto) 2.5 x10^3/uL (1.0-4.8) Monocytes # (Auto) 0.8 x10^3/uL (0.0-1.1) Eosinophils # (Auto) 0.1 x10^3/uL (0.0-0.7) Basophils # (Auto) 0.0 x10^3/uL (0.0-0.2) Sodium Level 142 mmol/L (136-145) Potassium Level 4.2 mmol/L (3.5-5.1) Chloride Level 107 mmol/L (98-107) Carbon Dioxide Level 24 mmol/L (21-32) Anion Gap 11 (6-14) Blood Urea Nitrogen 14 mg/dL (8-26) Creatinine 1.0 mg/dL (0.7-1.3) Estimated GFR (Cockcroft-Gault) 98.7 Glucose Level 103 mg/dL (70-99) Calcium Level 9.4 mg/dL (8.5-10.1) Creatine Kinase 380 U/L (39-308) Creatine Kinase MB (Mass) 2.5 ng/mL (0.0-3.6) Creatine Kinase MB Relative Index 0.7 % (0-4) Laboratory Tests Test 01/15/17 22:30 01/16/17 02:55 01/16/17 04:30 Urine Collection Type Unknown Urine Color Yellow Urine Clarity Clear Urine pH 8.0 Urine Specific [place] 1.020 Urine Protein Negative mg/dL (NEG-TRACE) Urine Glucose (UA) Negative mg/dL (NEG) Urine Ketones (Stick) Negative mg/dL (NEG) Urine Blood Negative (NEG) Urine Nitrite Negative (NEG) Urine Bilirubin Negative (NEG) Urine Urobilinogen Dipstick 1.0 mg/dL (0.2 mg/dL) Urine Leukocyte Esterase Negative (NEG) Urine RBC 0 /HPF (0-2) Urine WBC Rare /HPF (0-4) Urine Squamous Epithelial Cells Occ /LPF Urine Bacteria 0 /HPF (0-FEW) White Blood Count 10.7 x10^3/uL (4.0-11.0) Red Blood Count 5.11 x10^6/uL (4.30-5.70) Hemoglobin 15.0 g/dL (13.0-17.5) Hematocrit 46.2 % (39.0-53.0) Mean Corpuscular Volume 91 fL (79-100) Mean Corpuscular Hemoglobin 30 pg (25-35) Mean Corpuscular Hemoglobin Concent 33 g/dL (31-37) Red Cell Distribution Width 14.4 % (11.5-14.5) Platelet Count 363 x10^3/uL (140-400) Neutrophils (%) (Auto) 67 % (31-73) Lymphocytes (%) (Auto) 24 % (24-48) Monocytes (%) (Auto) 7 % (0-9) Eosinophils (%) (Auto) 1 % (0-3) Basophils (%) (Auto) 1 % (0-3) Neutrophils # (Auto) 7.2 x10^3uL (1.8-7.7) Lymphocytes # (Auto) 2.5 x10^3/uL (1.0-4.8) Monocytes # (Auto) 0.8 x10^3/uL (0.0-1.1) Eosinophils # (Auto) 0.1 x10^3/uL (0.0-0.7) Basophils # (Auto) 0.0 x10^3/uL (0.0-0.2) Sodium Level 142 mmol/L (136-145) Potassium Level 4.2 mmol/L (3.5-5.1) Chloride Level 107 mmol/L (98-107) Carbon Dioxide Level 24 mmol/L (21-32) Anion Gap 11 (6-14) Blood Urea Nitrogen 14 mg/dL (8-26) Creatinine 1.0 mg/dL (0.7-1.3) Estimated GFR (Cockcroft-Gault) 98.7 Glucose Level 103 mg/dL (70-99) Calcium Level 9.4 mg/dL (8.5-10.1) Creatine Kinase 380 U/L (39-308) Creatine Kinase MB (Mass) 2.5 ng/mL (0.0-3.6) Creatine Kinase MB Relative Index 0.7 % (0-4) Medications Current Medications Aspirin (Ecotrin) 325 mg 1X ONCE PO Last administered on 01/14/17 18:24; Start 01/14/17 at 18:30; Stop 01/14/17 at 18:31; Status DC Nitroglycerin (Nitrostat) 0.4 mg PRN Q5MIN PRN SL CHEST PAIN Last administered on 01/14/17 18:31; Start 01/14/17 at 18:30 Ondansetron HCl (Zofran) 4 mg PRN Q8HRS PRN IV NAUSEA/VOMITING; Start 01/14/17 at 19:15; Stop 01/15/17 at 19:14; Status DC Fentanyl Citrate (Fentanyl 2ml Vial) 50 mcg PRN Q2HR PRN IV PAIN; Start at 19:15; Stop 01/15/17 at 19:14; Status DC Sodium Chloride 1,000 ml @ 200 mls/hr 1X ONCE IV Last administered on 19:56; Start 01/14/17 at 19:15; Stop 01/15/17 at 00:14; Status DC Acetaminophen (Tylenol) 325 mg PRN Q6HRS PRN PO MILD PAIN / TEMP Last administered on 01/16/17 08:27; Start 01/14/17 at 19:45 Acetaminophen/ Hydrocodone Bitart (Lortab 5/325) 1 tab PRN Q6HRS PRN PO MODERATE TO SEVERE PAIN Last administered on 01/16/17 05:08; Start 01/14/17 at 19:45 Hydralazine HCl (Apresoline) 10 mg PRN Q4HRS PRN IVP ELEVATED BP, SEE COMMENTS Last administered on 01/16/17 04:03; Start 01/14/17 at 19:45 Ondansetron HCl (Zofran) 4 mg PRN Q8HRS PRN IV NAUSEA/VOMITING; Start 01/14/17 at 19:45 Albuterol Sulfate (Ventolin Neb Soln) 2.5 mg PRN Q4HRS PRN NEB SHORTNESS OF BREATH; Start 01/14/17 at 19:45 Zolpidem Tartrate (Ambien) 5 mg 1X ONCE PO Last administered on 01/14/17 23: 44; Start 01/14/17 at 23:45; Stop 01/14/17 at 23:46; Status DC Amlodipine Besylate (Norvasc) 10 mg DAILY PO Last administered on 01/16/17 08: 21; Start 01/15/17 at 12:00 Losartan Potassium (Cozaar) 100 mg DAILY PO Last administered on 01/16/17 08: 21; Start 01/15/17 at 11:30 Hydralazine HCl (Apresoline) 50 mg TID PO Last administered on 01/16/17 13:38 ; Start 01/15/17 at 14:00 Regadenoson (Lexiscan) 0.4 mg 1X ONCE IV Last administered on 01/15/17 13:49 ; Start 01/15/17 at 12:15; Stop 01/15/17 at 12:16; Status DC Atorvastatin Calcium (Lipitor) 20 mg QHS PO Last administered on 01/15/17 21: 14; Start 01/15/17 at 21:00 Lorazepam (Ativan) 0.5 mg 1X ONCE IV Last administered on 01/15/17 13:21; Start 01/15/17 at 13:15; Stop 01/15/17 at 13:16; Status DC Sodium Chloride 1,000 ml @ 100 mls/hr 1X ONCE IV ; Start 01/15/17 at 14:15; Stop 01/16/17 at 00:14; Status DC Zolpidem Tartrate (Ambien) 5 mg PRN QHS PRN PO INSOMNIA, MAY REPEAT IN 1HR Last administered on 01/15/17 23:37; Start 01/15/17 at 22:00 Labetalol HCl (Normodyne) 20 mg PRN Q2HR PRN IVP HYPERTENSION, SEE COMMENTS; Start 01/16/17 at 07:30 Metoprolol Tartrate (Lopressor) 25 mg BID PO Last administered on 01/16/17 10: 54; Start 01/16/17 at 10:45 Active Scripts Active Metoprolol Tartrate 25 Mg Tablet 25 Mg PO BID 30 Days Cozaar (Losartan Potassium) 50 Mg Tablet 100 Mg PO DAILY 30 Days Hydralazine Hcl 50 Mg Tablet 50 Mg PO TID 30 Days Atorvastatin Calcium 20 Mg Tablet 20 Mg PO QHS 30 Days Amlodipine Besylate 10 Mg Tablet 10 Mg PO DAILY 30 Days Proair Hfa Inhaler (Albuterol Sulfate) 8.5 Gm Hfa.aer.ad 1 Puff INH PRN Q6HRS PRN Montelukast Sodium Tablet (Montelukast Sodium) 10 Mg Tablet 10 Mg PO QHS Vitals/I & O Vital Sign - Last 24 Hours 01/15/17 01/15/17 01/15/17 01/15/17 15:00 19:15 20:00 21:14 Temp 97.8 98.1 97.8 98.1 Pulse 101 111 111 Resp 18 18 B/P (MAP) 169/71 (103) 167/74 (105) 167/74 Pulse Ox 96 94 O2 Delivery Room Air Room Air Room Air 01/15/17 01/15/17 01/16/17 01/16/17 23:15 23:39 03:40 04:03 Temp 98.0 98.0 98.0 98.0 Pulse 105 95 83 84 Resp 18 18 B/P (MAP) 193/92 (125) 193/92 207/94 (131) 207/94 Pulse Ox 97 95 O2 Delivery Room Air Room Air 01/16/17 01/16/17 01/16/17 01/16/17 07:30 08:00 08:20 08:21 Temp 96.4 96.4 Pulse 75 99 99 Resp 18 B/P (MAP) 134/68 (90) 167/82 167/82 Pulse Ox 97 O2 Delivery Room Air Room Air 01/16/17 01/16/17 01/16/17 01/16/17 08:21 10:54 11:00 13:38 Temp 97.9 97.9 Pulse 88 106 107 107 Resp 18 B/P (MAP) 167/82 163/66 163/66 (98) 163/66 Pulse Ox 94 O2 Delivery Room Air Intake and Output 01/15/17 01/15/17 01/16/17 15:00 23:00 07:00 Intake Total 850 ml 500 ml Output Total 875 ml 600 ml Balance -875 ml 850 ml -100 ml DAVION ZIMMERMAN MD Jan 16, 2017 14:38
== END 2017-01-16 16:09 | disposition home or self-care (01) | DRG 558 ==
LOC: ER 17:55 → ED HOLD 19:02 → 2 NORTH 21:35
PROVIDERS: ADMIT Internal Medicine; ATTEND Internal Medicine
DX: M62.82 Rhabdomyolysis (principal); R07.89 Other chest pain; I16.0 Hypertensive urgency; E78.5 Hyperlipidemia, unspecified; F17.200 Nicotine dependence, unspecified, uncomplicated; G47.33 Obstructive sleep apnea (adult) (pediatric); R74.0 Nonspecific elevation of levels of transaminase and lactic acid dehydrogenase [LDH]; Z90.89 Acquired absence of other organs; Z83.3 Family history of diabetes mellitus; Z82.49 Family history of ischemic heart disease and other diseases of the circulatory system; Z86.73 Personal history of transient ischemic attack (TIA), and cerebral infarction without residual deficits; Z79.899 Other long term (current) drug therapy; Z79.1 Long term (current) use of non-steroidal anti-inflammatories (NSAID); Z79.2 Long term (current) use of antibiotics; R00.1 Bradycardia, unspecified
CPT/HCPCS: 36415; 71010; 76705; 78452; 80048; 80053; 80061; 80076; 81001; 82550; 82553; 83735; 83874; 83880; 84443; 84484; 85027; 85610; 85730; 93005; 93017; 93306; 94250; 94760; 96360; 96361; 96374; 96375; 96376; A9500; C1887; J0360; J2060; J2785; J7030; 99285-25

== ENCOUNTER 2017-01-24 08:13 | Emergency (ER) | payer OTHER ==
[~2017-01-24] VITALS: Ht 180.3 cm; Wt 113.4 kg
[~2017-01-24 08:13] MED LIST changes: +AMLO10TA2 PO; +ATOR20TA58 PO; +HYDR-2869 PO; +LABE200T2 PO; +LOSA50TA2 PO; +METO25TA4 PO
--- NOTE | 2017-01-24 09:34 | RAD ---
Indication hypertension. Dizziness. Blurred vision. Suspect CVA. Protocol exam. A single view of the chest was obtained and is compared to an examination 10 days earlier. The heart, pulmonary vessels and mediastinum appear normal. The lungs are clear. There has been little change compared to the previous exam. IMPRESSION: No acute or focal process. No significant change
[2017-01-24 09:37] LABS: BASO % 1 % (0-3); EOS % 1 % (0-3); HEMATOCRIT 45.6 % (39.0-53.0); HEMOGLOBIN 15.4 g/dL (13.0-17.5); LYMPH # 2.2 x10^3/uL (1.0-4.8); LYMPH % 25 % (24-48); MEAN CORPUSCULAR HEMOGLOBIN 30 pg (25-35); MEAN CORPUSCULAR HGB CONC 34 g/dL (31-37); MEAN CORPUSCULAR VOLUME 89 fL (79-100); MONO % 10 % (0-9); NEUT % 64 % (31-73); PLATELET COUNT 331 x10^3/uL (140-400); RED BLOOD COUNT 5.14 x10^6/uL (4.30-5.70); RED CELL DISTRIBUTION WIDTH 14.6 % (11.5-14.5); WHITE BLOOD COUNT 8.8 x10^3/uL (4.0-11.0)
[2017-01-24 09:46] LABS: CALCIUM 9.5 mg/dL (8.5-10.1); CREATININE 1.1 mg/dL (0.7-1.3); GFR 88.4; POTASSIUM 4.6 mmol/L (3.5-5.1)
[2017-01-24 09:51] LABS: ALBUMIN 3.7 g/dL (3.4-5.0); ALBUMIN/GLOBULIN RATIO 1.1 (1.0-1.7); TOTAL BILIRUBIN 0.4 mg/dL (0.2-1.0)
--- NOTE | 2017-01-24 09:51 | RAD ---
Indication hypertension. Dizziness. Noncontrast images of the head were obtained. Note is made of a previous examination 12/09/2015. The calvarium appears unremarkable. The visualized paranasal sinuses appear normal. There is no subdural or epidural hematoma. Ventricles and sulci are normal. No mass or midline shift is seen. No hemorrhage or acute finding is apparent. IMPRESSION: No acute finding seen in the head PQRS Compliance Statement: One or more of the following individualized dose reduction techniques were utilized for this examination: 1. Automated exposure control 2. Adjustment of the mA and/or kV according to patient size 3. Use of iterative reconstruction technique
[2017-01-24] MEDS ORDERED: ALPRAZolam 0.5 MG TABLET PO ONE (10:00)
--- NOTE | 2017-01-24 10:37 | EKG ---
[facility] [address] [place] [address] Test Date: 2017-01-24 Test Time: 09:10:03 Pat Name: RADHA DESHPANDE Department: Room: Gender: M Assistant Cook: : 1975 Requested By: VIRGILIO AG Order Number: [id number] Reading MD: Bruce Daley Measurements Intervals [place] Rate: 75 P: 34 SD: 158 QRS: 21 QRSD: 94 T: 13 QT: 372 QTc: 418 Interpretive Statements SINUS RHYTHM Electronically Signed On 01-28-2017 14:49:43 CDT by Bruce Daley
[2017-01-24 10:40] LABS: BILIRUBIN,URINE NEGATIVE (NEG); GLUCOSE,URINE NEGATIVE (NEG); NITRITE,URINE NEGATIVE (NEG); PROTEIN,URINE NEGATIVE (NEG-TRACE)
[2017-01-24 10:43] LABS: BARBITURATES NEG (NEG); BENZODIAZEPINES NEG (NEG); CANNABINOIDS NEG (NEG); COCAINE NEG (NEG); METHADONE NEG (NEG); OPIATES NEG (NEG); PHENCYCLIDINE NEG (NEG)
[2017-01-24 10:50] LABS: BACTERIA,URINE FEW /HPF (0-FEW); WBC,URINE OCC /HPF (0-4)
[2017-01-24 11:45] VITALS: BP 153/68
--- NOTE | 2017-01-24 12:46 | ED.ADGEN ---
Past Medical History Past Medical History: Hypertension, TIA Past Surgical History: Other Additional Past Surgical Histo: hamstring Alcohol Use: Occasionally Drug Use: None Adult General Chief Complaint Chief Complaint: DIZZY/LIGHT HEADED HPI HPI Patient is a 41 year old man, history of anxiety, hypertension, who presents to the emergency department with a complaint of some dizziness, and a concern for anxiety and hypertension. Patient's initial blood pressure is 200/110, he recently had medication adjustments made after visiting the ED with hypertension. Patient denies any chest pain, complains of some mild shortness of breath which is now improved, states he is expressing a headache and some blurred vision. No vertiginous symptoms. He denies any focal weakness, numbness or tingling, any nausea or vomiting, any injuries, any triggering symptoms. Patient states that he is currently waiting to get into a sleep study, Review of Systems Review of Systems Constitutional: Denies fever or chills. [] Eyes: Denies change in visual acuity. [] HENT: Denies nasal congestion or sore throat. [] Respiratory: Denies cough, mild shortness of breath. Cardiovascular: Denies chest pain or edema. [] GI: Denies abdominal pain, nausea, vomiting, bloody stools or diarrhea. [] : Denies dysuria. [] Musculoskeletal: Denies back pain or joint pain. [] Integument: Denies rash. [] Neurologic: Denies focal weakness or sensory changes. [] Headache, dizziness, blurry vision. Endocrine: Denies polyuria or polydipsia. [] Lymphatic: Denies swollen glands. [] Psychiatric: Denies depression or anxiety. [] Current Medications Current Medications Current Medications Medications (Trade) Dose Ordered Sig/Isatu Start Time Stop Time Status Last Admin Dose Admin Alprazolam (Xanax) 0.5 mg 1X ONCE 01/24/17 10:00 01/24/17 10:01 DC 01/24/17 10:02 0.5 MG Allergies Allergies Allergies Coded Allergies Type Severity Reaction Last Updated Verified No Known Drug Allergies 02/25/16 No Physical Exam Physical Exam Constitutional: Well developed, well nourished, no acute distress, non-toxic appearance. [] HENT: Normocephalic, atraumatic, bilateral external ears normal, oropharynx moist, no oral exudates, nose normal. [] Eyes: PERRLA, EOMI, conjunctiva normal, no discharge. [] Neck: Normal range of motion, no tenderness, supple, no stridor. [] Cardiovascular:Heart rate regular rhythm, no murmur [] Lungs & Thorax: Bilateral breath sounds clear to auscultation [] Abdomen: Bowel sounds normal, soft, no tenderness, no masses, no pulsatile masses. [] Skin: Warm, dry, no erythema, no rash. [] Back: No tenderness, no CVA tenderness. [] Extremities: No tenderness, no cyanosis, no clubbing, ROM intact, no edema. [] Neurologic: Alert and oriented X 3, normal motor function, normal sensory function, no focal deficits noted. [] Psychologic: Affect normal, judgement normal, mood normal. [] Current Patient Data Vital Signs Vital Signs Date Time Temp Pulse Resp B/P (MAP) Pulse Ox O2 Delivery O2 Flow Rate FiO2 01/24/17 11:45 90 153/68 (96) 95 Room Air 01/24/17 10:15 20 01/24/17 08:30 97.8 97.8 Lab Values Laboratory Tests Test 01/24/17 08:50 01/24/17 10:15 01/24/17 11:47 White Blood Count 8.8 x10^3/uL (4.0-11.0) Red Blood Count 5.14 x10^6/uL (4.30-5.70) Hemoglobin 15.4 g/dL (13.0-17.5) Hematocrit 45.6 % (39.0-53.0) Mean Corpuscular Volume 89 fL (79-100) Mean Corpuscular Hemoglobin 30 pg (25-35) Mean Corpuscular Hemoglobin Concent 34 g/dL (31-37) Red Cell Distribution Width 14.6 % (11.5-14.5) H Platelet Count 331 x10^3/uL (140-400) Neutrophils (%) (Auto) 64 % (31-73) Lymphocytes (%) (Auto) 25 % (24-48) Monocytes (%) (Auto) 10 % (0-9) H Eosinophils (%) (Auto) 1 % (0-3) Basophils (%) (Auto) 1 % (0-3) Neutrophils # (Auto) 5.6 x10^3uL (1.8-7.7) Lymphocytes # (Auto) 2.2 x10^3/uL (1.0-4.8) Monocytes # (Auto) 0.9 x10^3/uL (0.0-1.1) Eosinophils # (Auto) 0.1 x10^3/uL (0.0-0.7) Basophils # (Auto) 0.0 x10^3/uL (0.0-0.2) Sodium Level 140 mmol/L (136-145) Potassium Level 4.6 mmol/L (3.5-5.1) Chloride Level 105 mmol/L (98-107) Carbon Dioxide Level 24 mmol/L (21-32) Anion Gap 11 (6-14) Blood Urea Nitrogen 14 mg/dL (8-26) Creatinine 1.1 mg/dL (0.7-1.3) Estimated GFR (Cockcroft-Gault) 88.4 BUN/Creatinine Ratio 13 (6-20) Glucose Level 90 mg/dL (70-99) Calcium Level 9.5 mg/dL (8.5-10.1) Total Bilirubin 0.4 mg/dL (0.2-1.0) Aspartate Amino Transferase (AST) 72 U/L (15-37) H Alanine Aminotransferase (ALT) 112 U/L (16-63) H Alkaline Phosphatase 53 U/L (46-116) Troponin I Quantitative 0.039 ng/mL (0.000-0.055) NB-Tix-A-Type Natriuretic Peptide 53 pg/mL (0-124) Total Protein 7.0 g/dL (6.4-8.2) Albumin 3.7 g/dL (3.4-5.0) Albumin/Globulin Ratio 1.1 (1.0-1.7) Urine Collection Type Unknown Urine Color Yellow Urine Clarity Clear Urine pH 7.0 Urine Specific [place] 1.020 Urine Protein Negative mg/dL (NEG-TRACE) Urine Glucose (UA) Negative mg/dL (NEG) Urine Ketones (Stick) Negative mg/dL (NEG) Urine Blood Negative (NEG) Urine Nitrite Negative (NEG) Urine Bilirubin Negative (NEG) Urine Urobilinogen Dipstick 1.0 mg/dL (0.2 mg/dL) Urine Leukocyte Esterase Negative (NEG) Urine RBC 1-2 /HPF (0-2) Urine WBC Occ /HPF (0-4) Urine Amorphous Sediment Present /HPF Urine Bacteria Few /HPF (0-FEW) Urine Mucus Slight /LPF Urine Opiates Screen Neg (NEG) Urine Methadone Screen Neg (NEG) Urine Barbiturates Neg (NEG) Urine Phencyclidine Screen Neg (NEG) Urine Amphetamine/Methamphetamine Neg (NEG) Urine Benzodiazepines Screen Neg (NEG) Urine Cocaine Screen Neg (NEG) Urine Cannabinoids Screen Neg (NEG) Urine Ethyl Alcohol Neg (NEG) POC Troponin I 0.00 ng/ml (<0.08) Laboratory Tests 01/24/17 08:50 Laboratory Tests 01/24/17 08:50 EKG EKG EC: Sinus rhythm, heart rate 75 beats/minute, upright axis, QTC of 418, AR 158, QR is 94, no ST elevations or depressions, patient with contour normality is noted in the anterior lateral leads, no ST depressions, 1 mm elevation noted in V4 V2 and V5, likely consistent with body habitus,, does not meet STEMI criteria. As inserted by me. [] Radiology/Procedures Radiology/Procedures [][address] [id number] IMAGING REPORT Signed PATIENT: RADHA DESHPANDE ACCOUNT: [id number] : 1975 LOCATION: ER AGE: 41 SEX: M EXAM STATUS: REG ER ORD. PHYSICIAN: VIRGILIO AG DO REASON: HTN/Dizziness PROCEDURE: PORTABLE CHEST 1V Indication hypertension. Dizziness. Blurred vision. Suspect CVA. Protocol exam. A single view of the chest was obtained and is compared to an examination 10 days earlier. The heart, pulmonary vessels and mediastinum appear normal. The lungs are clear. There has been little change compared to the previous exam. IMPRESSION: No acute or focal process. No significant change DICTATED and SIGNED BY: ADA WELSH MD DATE: 01/24/17926 CC: VIRGILIO AG DO; SAMUEL JASSO MD ~ Impressions: [address] [id number] IMAGING REPORT Signed PATIENT: RADHA DEHSPANDE ACCOUNT: [id number] : 1975 LOCATION: ER AGE: 41 SEX: M EXAM STATUS: REG ER ORD. PHYSICIAN: VIRGILIO AG DO REASON: Dizziness/HTN PROCEDURE: CT HEAD WO CONTRAST Indication hypertension. Dizziness. Noncontrast images of the head were obtained. Note is made of a previous examination 12/09/2015. The calvarium appears unremarkable. The visualized paranasal sinuses appear normal. There is no subdural or epidural hematoma. Ventricles and sulci are normal. No mass or midline shift is seen. No hemorrhage or acute finding is apparent. IMPRESSION: No acute finding seen in the head PQRS Compliance Statement: One or more of the following individualized dose reduction techniques were utilized for this examination: 1. Automated exposure control 2. Adjustment of the mA and/or kV according to patient size 3. Use of iterative reconstruction technique DICTATED and SIGNED BY: ADA WELSH MD DATE: 01/24/17 0945 CC: VIRGILIO AG DO; SAMUEL JASSO MD ~ Course & Med Decision Making Course & Med Decision Making Pertinent Labs and Imaging studies reviewed. (See chart for details) Patient well-appearing, at the time of my evaluation his blood pressure is improved is now 170s over 80s, he states he is feeling better there is no blurred vision, headache is improved. He states he still feels some on anxious. CT obtained of the head, which was unremarkable, as was a chest x-ray, laboratory studies did not reveal any acutely concerning findings. Patient states he does take supplemental testosterone, denies any illicit substances, any injuries as stated. He did receive Xanax 0.5 mg, one tablet with improvement of his symptoms, I did discuss with patient that management of anxiety is something best performed via her primary care provider. We did discuss the importance for him to obtain a sleep study, patient states he is currently having difficulty with his insurance. Patient was given contact information for pulmonary for no care, so they consulted a process in conjunction with his primary care provider's office. Patient instructed to follow-up with his primary care provider's office in the next few days, to call tomorrow to schedule an appointment for evaluation continuing symptoms, and to see if they can facilitate the sleep study. Patient is ambulatory to difficulty in the ED, states that he is ready to go home. Discharged home in stable condition with precautions, instructions, and plan as above. Dragon Disclaimer Dragon Disclaimer This electronic medical record was generated, in whole or in part, using a voice recognition dictation system. Departure Impression: Primary Impression: Elevated blood pressure Disposition: HOME, SELF-CARE Condition: IMPROVED VIRGILIO AG DO Jan 24, 2017 12:46
== END 2017-01-24 12:37 | disposition home or self-care (01) ==
LOC: ER 08:13
DX: I10 Essential (primary) hypertension (principal); F41.9 Anxiety disorder, unspecified; Z86.73 Personal history of transient ischemic attack (TIA), and cerebral infarction without residual deficits
CPT/HCPCS: 36415; 70450; 71010; 80053; 81001; 83880; 84484; 85027; 93005; 99285; G0481

== ENCOUNTER 2017-02-08 23:11 | Emergency (ER) | payer OTHER ==
[~2017-02-08] VITALS: Ht 180.3 cm; Wt 113.4 kg
[2017-02-09 01:40] VITALS: BP 182/79
--- NOTE | 2017-02-09 07:14 | ED.ADGEN ---
Past Medical History Past Medical History: Hypertension, TIA Past Surgical History: Other Additional Past Surgical Histo: hamstring Alcohol Use: None Drug Use: None Adult General Chief Complaint Chief Complaint: HYPERTENSION HPI HPI Patient is a 41 year old man, with history of difficult to manage hypertension , presents to the emergency department with a complaint of elevated blood pressures at home, associated with headache and nausea. Patient has been seen in the emergency department several times for similar complaints, has previously been admitted for hypertensive urgency. Patient states that he did take his blood pressure medication and 9 PM, states at home he had a blood pressure of 230/120, currently in the emergency department blood pressure is 174 /82. Patient states that his nausea and headache has resolved. He states he has been compliant with his blood pressure medications, which he states are recently adjusted by his primary care provider, Dr. Dooley. He denies any injuries, any vision changes, any focal weakness, numbness, tingling, chest pain , shortness breath or other complaints. He states he is feeling significantly better at this time. Review of Systems Review of Systems Constitutional: Denies fever or chills. [] Eyes: Denies change in visual acuity. [] HENT: Denies nasal congestion or sore throat. [] Respiratory: Denies cough or shortness of breath. [] Cardiovascular: Denies chest pain or edema. [] GI: Denies abdominal pain, vomiting, bloody stools or diarrhea. Nausea, resolved. [] : Denies dysuria. [] Musculoskeletal: Denies back pain or joint pain. [] Integument: Denies rash. [] Neurologic: Denies focal weakness or sensory changes. Headache. Endocrine: Denies polyuria or polydipsia. [] Lymphatic: Denies swollen glands. [] Psychiatric: Denies depression or anxiety. [] Allergies Allergies Allergies Coded Allergies Type Severity Reaction Last Updated Verified No Known Drug Allergies 02/25/16 No Physical Exam Physical Exam Constitutional: Well developed, well nourished, no acute distress, non-toxic appearance. [] HENT: Normocephalic, atraumatic, bilateral external ears normal, oropharynx moist, no oral exudates, nose normal. [] Eyes: PERRLA, EOMI, conjunctiva normal, no discharge. [] Neck: Normal range of motion, no tenderness, supple, no stridor. [] Cardiovascular:Heart rate regular rhythm, no murmur , S1, S2, rubs or gallops. [ ] Lungs & Thorax: Bilateral breath sounds clear to auscultation, no wheezing, rhonchi, rales. No chest or crepitus or tenderness. [] Abdomen: Bowel sounds normal, soft, no tenderness, no masses, no pulsatile masses. [] Skin: Warm, dry, no erythema, no rash. [] Back: No tenderness, no CVA tenderness. [] Extremities: No tenderness, no cyanosis, no clubbing, ROM intact, no edema. Negative Homans sign. [] Neurologic: Alert and oriented X 3, normal motor function, normal sensory function, no focal deficits noted. [] Psychologic: Affect normal, judgement normal, mood normal. [] Current Patient Data Vital Signs Vital Signs Date Time Temp Pulse Resp B/P (MAP) Pulse Ox O2 Delivery O2 Flow Rate FiO2 02/09/17 01:40 61 16 182/79 (113) 94 Room Air 02/09/17 00:25 98.1 98.1 EKG EKG Not indicated. [] Radiology/Procedures Radiology/Procedures Not indicated. [] Course & Med Decision Making Course & Med Decision Making Pertinent Labs and Imaging studies reviewed. (See chart for details) At time of my evaluation, patient's symptoms have fully resolved. Patient is neurologically intact with a normal examination, denying complaints. Did review patient's medications at bedside, which were recently adjusted by his primary care provider. He has been compliant with his medications, I did discuss follow- up with his primary for additional discussion of medication, and potential adjustments as needed, as patient has a history of very difficult to manage hypertension. Patient voices understanding and agreement with this plan, will continue to take medications as directed, and return to the ED for any new, or concerning symptoms as discussed at bedside. Patient ambulated without difficulty in the ED, was discharged home with his in stable condition with plan and precautions as stated. Dragon Disclaimer Dragon Disclaimer This electronic medical record was generated, in whole or in part, using a voice recognition dictation system. Departure Impression: Primary Impression: Malignant hypertension Additional Impression: Headache Disposition: HOME, SELF-CARE Condition: IMPROVED Problem Qualifiers VIRGILIO AG DO Feb 09, 2017 07:14
== END 2017-02-09 02:42 | disposition home or self-care (01) ==
LOC: ER 23:11
DX: I10 Essential (primary) hypertension (principal); R51 Headache; R11.0 Nausea; Z86.73 Personal history of transient ischemic attack (TIA), and cerebral infarction without residual deficits
CPT/HCPCS: 99281

== ENCOUNTER → 2017-02-23 | Outpatient (CLI) | payer MEDICAID, OTHER ==
[2017-02-09 01:40] VITALS: BP 182/79
--- NOTE | 2017-02-23 08:10 | RAD ---
Exam performed: Limited right upper quadrant sonogram. Indication: Right Upper quadrant pain Date of Service: 02/23/17 . Comparison:None available Technique: Real-time grayscale imaging of the right upper abdomen is performed and images are obtained. Findings: The liver is normal in size and echogenicity without any focal lesions. There is no intra or extrahepatic biliary ductal dilatation. Common bile duct measures 3.0 mm The gallbladder is well distended without any shadowing intraluminal calculus, pericholecystic fluid or gallbladder wall thickening. The right kidney appears unremarkable and measures 12.7 cm in length. There is no hydronephrosis or perinephric fluid collection. The visualized pancreas and IVC appear unremarkable. Impression: 1. Essentially unremarkable right upper quadrant sonogram.
== END | disposition home or self-care (01) ==
LOC: US 06:40
PROVIDERS: ATTEND Family Medicine
DX: R10.11 Right upper quadrant pain (principal)
CPT/HCPCS: 76705

== ENCOUNTER 2017-04-19 02:22 | Inpatient (IN) | payer OTHER ==
[2017-04-19] VITALS (13 sets, daily range): BP systolic 130–188; BP diastolic 51–113
[~2017-04-19] VITALS: Ht 180.3 cm; Wt 115.3 kg
[2017-04-19 02:41] LABS: BASO # 0.1 x10^3/uL (0.0-0.2); BASO % 1 % (0-3); EOS % 3 % (0-3); HEMATOCRIT 55.9 % (39.0-53.0); HEMOGLOBIN 18.9 g/dL (13.0-17.5); LYMPH # 2.5 x10^3/uL (1.0-4.8); LYMPH % 25 % (24-48); MEAN CORPUSCULAR HEMOGLOBIN 30 pg (25-35); MEAN CORPUSCULAR HGB CONC 34 g/dL (31-37); MEAN CORPUSCULAR VOLUME 88 fL (79-100); MONO % 7 % (0-9); NEUT % 65 % (31-73); PLATELET COUNT 268 x10^3/uL (140-400); RED BLOOD COUNT 6.38 x10^6/uL (4.30-5.70); RED CELL DISTRIBUTION WIDTH 14.1 % (11.5-14.5)
--- NOTE | 2017-04-19 02:47 | PHYS DOC ---
Past Medical History Past Medical History: High Cholesterol, Hypertension, TIA Additional Past Medical Histor: ECHO 02/23/17 normal; Stress test 02/18 negative Past Surgical History: Tonsillectomy, Other Additional Past Surgical Histo: hamstring Smoking: Cigarettes Alcohol Use: None Drug Use: None Social History Narrative: Adult General Chief Complaint Chief Complaint: CHEST PAIN HPI HPI Patient is a 41 year old male who presents with chest pain. He states he went to bed fine and then awakened at around midnight with chest pain. He states the chest pain is left chest at the 5 or 6 on a pain scale. It's very sharp and increased cough or movement. Then becomes dull. He was here in February with chest pain and evaluation. Had rhabdomyolysis at that time. Since then he has changed his physicians and has had blood pressure medication changes as well. That occurred in the last couple weeks. He is no longer taking testosterone. He does lift weights but states his lifting any weights or change in his routine for at least a couple days. Review of Systems Review of Systems Constitutional: Denies fever or chills Eyes: Denies change in visual acuity, redness, or eye pain HENT: Denies nasal congestion or sore throat Respiratory: Denies cough or shortness of breath Cardiovascular:see HPI GI: Denies abdominal pain, nausea, vomiting, bloody stools or diarrhea : Denies dysuria or hematuria Musculoskeletal: Denies back pain or joint pain Integument: Denies rash or skin lesions Neurologic: Denies headache, focal weakness or sensory changes Family History Family History Heart disease (Grandmother); Hypertension Current Medications Current Medications Current Medications Medications (Trade) Dose Ordered Sig/Isatu Start Time Stop Time Status Last Admin Dose Admin Nitroglycerin (Nitro-Bid Oint) 1 inch 1X ONCE 04/19/17 03:00 04/19/17 03:01 DC 04/19/17 02:52 1 INCH Allergies Allergies Allergies Coded Allergies Type Severity Reaction Last Updated Verified No Known Drug Allergies 02/25/16 No Physical Exam Physical Exam Constitutional: Well developed, well nourished, no acute distress, non-toxic appearance. Very muscular build HENT: Normocephalic, atraumatic, bilateral external ears normal, oropharynx moist, no oral exudates, nose normal. Eyes: PERRLA, EOMI, conjunctiva normal, no discharge. Neck: Normal range of motion, no tenderness, supple, no stridor. Cardiovascular:Heart rate regular rhythm, no murmur Lungs & Thorax: Bilateral breath sounds clear to auscultation Abdomen: Bowel sounds normal, soft, no tenderness, no masses, no pulsatile masses. Skin: Warm, dry, no erythema, no rash. Back: No tenderness, no CVA tenderness. Extremities: No tenderness, no cyanosis, no clubbing, ROM intact, no edema. Neurologic: Alert and oriented X 3, normal motor function, normal sensory function, no focal deficits noted. Current Patient Data Vital Signs Vital Signs Date Time Temp Pulse Resp B/P (MAP) Pulse Ox O2 Delivery O2 Flow Rate FiO2 04/19/17 03:34 107 230/105 04/19/17 02:25 97.8 18 95 Room Air 97.8 Lab Values Laboratory Tests Test 04/19/17 02:30 White Blood Count 10.0 x10^3/uL (4.0-11.0) Red Blood Count 6.38 x10^6/uL (4.30-5.70) H Hemoglobin 18.9 g/dL (13.0-17.5) H Hematocrit 55.9 % (39.0-53.0) H Mean Corpuscular Volume 88 fL (79-100) Mean Corpuscular Hemoglobin 30 pg (25-35) Mean Corpuscular Hemoglobin Concent 34 g/dL (31-37) Red Cell Distribution Width 14.1 % (11.5-14.5) Platelet Count 268 x10^3/uL (140-400) Neutrophils (%) (Auto) 65 % (31-73) Lymphocytes (%) (Auto) 25 % (24-48) Monocytes (%) (Auto) 7 % (0-9) Eosinophils (%) (Auto) 3 % (0-3) Basophils (%) (Auto) 1 % (0-3) Neutrophils # (Auto) 6.5 x10^3uL (1.8-7.7) Lymphocytes # (Auto) 2.5 x10^3/uL (1.0-4.8) Monocytes # (Auto) 0.7 x10^3/uL (0.0-1.1) Eosinophils # (Auto) 0.2 x10^3/uL (0.0-0.7) Basophils # (Auto) 0.1 x10^3/uL (0.0-0.2) Prothrombin Time 12.9 SEC (11.7-14.0) Prothrombin Time INR 1.0 (0.8-1.1) Sodium Level 141 mmol/L (136-145) Potassium Level 3.5 mmol/L (3.5-5.1) Chloride Level 104 mmol/L (98-107) Carbon Dioxide Level 28 mmol/L (21-32) Anion Gap 9 (6-14) Blood Urea Nitrogen 13 mg/dL (8-26) Creatinine 1.2 mg/dL (0.7-1.3) Estimated GFR (Cockcroft-Gault) 80.0 BUN/Creatinine Ratio 11 (6-20) Glucose Level 115 mg/dL (70-99) H Calcium Level 9.1 mg/dL (8.5-10.1) Total Bilirubin 0.3 mg/dL (0.2-1.0) Aspartate Amino Transferase (AST) 54 U/L (15-37) H Alanine Aminotransferase (ALT) 88 U/L (16-63) H Alkaline Phosphatase 82 U/L (46-116) Creatine Kinase 603 U/L (39-308) H Creatine Kinase MB (Mass) 5.0 ng/mL (0.0-3.6) H Creatine Kinase MB Relative Index 0.8 % (0-4) Troponin I Quantitative < 0.017 ng/mL (0.000-0.055) IG-Qlt-I-Type Natriuretic Peptide 27 pg/mL (0-124) Total Protein 7.4 g/dL (6.4-8.2) Albumin 4.3 g/dL (3.4-5.0) Albumin/Globulin Ratio 1.4 (1.0-1.7) Lipase 298 U/L (73-393) Laboratory Tests 04/19/17 02:30 Laboratory Tests 04/19/17 02:30 EKG EKG EKG interpreted by myself at 0230 AM: sinus tachycardia; nonspecific ST changes ; no change compared to prior 01/24/17 Radiology/Procedures Radiology/Procedures CXR interpreted by myself at 0245 AM: no acute changes; no pleural effusion; no infiltrate. Course & Med Decision Making Course & Med Decision Making Evaluated patient. Nitropaste placed. Reviewed prior records. At 0315 AM: Lab unremarkable. Labetalol IV as pulse rate 90-100 and BP still 220 systolic. Little response; will admit and place on Rafia drrichard. Admit to Dr Coombs; ICU. I spent approximately 30 minutes working and engaged directly in the patient care providing critical care evaluation this includes but not limited to time spent engaged in work directly related to the individual patients care. I spent time at the bedside, reviewing test results, discussing the case with staff, documenting the medical record and time spent with EMS discussing specific treatment issues when the patient presented and during his evaluation. This includes any discussion and updates with family members and/or patient. Differential diagnosis for chest pain includes but is not limited to: Pericarditis, myocarditis, endocarditis, pneumothorax, pneumonia, aortic dissection, esophageal spasm, esophagitis, peptic ulcer disease, acute coronary syndrome, mediastinitis, Boerhaave syndrome, musculoskeletal chest wall pain, costochondritis, intercostal strain, rib fracture, pulmonary contusion, pneumonitis, pleural effusion, pericardial effusion, pericardial tamponode, and pleurisy. MACE Scoring: History: Highly suspicious (2 points); Moderately suspicious (1 point). Slightly suspicious (0 point). EKG: ST segment depression (2 points). Nonspecific repolarization disturbance ( 1 point). normal (0 point) Age: Greater than 65 (2 points), 65-45 (1 point); less than 45 years old (0 points). Risk factors:> 3 risk factors (2 points), 1-2 risk factors (one point), no risk factors (0 point). Troponin: > 2 times normal (2 points), 1-2 times normal (1 point) normal limits (0 point) Total score: ____4__ Score % pts MACE/n MACE Policy 0-3: 32% 1.9% 0.05% Discharge 4-6: 51% 413/3136 13% 1.3% Observation Risk management 7-10: 17% 518/1045 50% 2.8% Observation Treatment, CAGb LG score for NSTEMI: Age 65: No=0; Yes=1 3 CAD risk factors: Family history of CAD, hypertension, hypercholesterolemia, diabetes, family history of CAD, or current smoker: No=0; Yes=1 Known CAD (stenosis 50%: No=0; Yes=1 ASA use in past 7 days: No=0; Yes=1 Severe angina ( 2 episodes in 24 hrs): No=0; Yes=[address] changes 0.5m: No=0; Yes=1 Positive cardiac marker: No=0; Yes=1 Score:1 I have spoken with the patient and/or caregivers. I have explained the patient' s condition, diagnosis and treatment plan based on the information available to me at this time. I have answered the patient's and/or caregiver's questions and addressed any concerns. The patient and/or caregivers have as good an understanding of the patient's diagnosis, condition and treatment plan as can be expected at this point. The patient has been stabilized within the capability of the emergency department. The patient will be transported for further care and management or will be moved to an observation or inpatient service. I have communicated with the staff or medical practitioner taking over this patient's care. I have assessed this patient clinically and believe that their condition requires admission to the hospital. After consulting the admitting physician about this case, they have asked that I admit this patient to their service as an inpatient based on the clinical presentation and my impression. Dragon Disclaimer Dragon Disclaimer This electronic medical record was generated, in whole or in part, using a voice recognition dictation system. Departure Departure Impression: Primary Impression: Malignant hypertension Additional Impression: Chest pain Disposition: ADMITTED INPATIENT Admitting Physician: Sonya Coombs Condition: CRITICAL Problem Qualifiers Additional Impression: Chest pain Chest pain type: unspecified Qualified Codes: R07.9 - Chest pain, unspecified ALEXI ANGULO MD Apr 19, 2017 02:47
[2017-04-19 02:49] LABS: PROTHROMBIN TIME PATIENT 12.9 SEC (11.7-14.0)
[2017-04-19 02:58] LABS: CREATINE KINASE 603 U/L (39-308)
[2017-04-19] MEDS ORDERED: NITROGLYCERIN OINT 1 GM PACKET. TP ONE (03:00)
[2017-04-19 03:02] LABS: ALBUMIN 4.3 g/dL (3.4-5.0); ALBUMIN/GLOBULIN RATIO 1.4 (1.0-1.7); CALCIUM 9.1 mg/dL (8.5-10.1); CREATININE 1.2 mg/dL (0.7-1.3); POTASSIUM 3.5 mmol/L (3.5-5.1); TOTAL BILIRUBIN 0.3 mg/dL (0.2-1.0); TOTAL PROTEIN 7.4 g/dL (6.4-8.2)
[2017-04-19] MEDS ORDERED: LABETALOL 20 MG/4 ML DISP.SYRIN. IVP ONE (04:00)
[2017-04-19] MEDS ORDERED: ONDANSETRON PF 4 MG/2 ML VIAL. IV PRN (04:00)
[2017-04-19] MEDS ORDERED: MORPHINE SULFATE 2 MG/ML DISP.SYRIN. IV PRN (04:00)
--- NOTE | 2017-04-19 06:15 | EKG ---
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
--- NOTE | 2017-04-19 07:30 | RAD ---
Indication: Chest pain Technique: Upright portable chest radiograph was obtained. Comparison is from January 24, 2017. Findings: The lungs are clear. The cardiopulmonary silhouette is within normal limits. The bony structures are intact. Leads overlie the patient. Impression: No active pulmonary disease.
[2017-04-19] MEDS ORDERED: hydrALAZINE 20 MG/ML VIAL. IVP PRN (09:15)
[2017-04-19] MEDS ORDERED: cloNIDine HCL 0.2 MG TABLET PO PRN (09:15)
--- NOTE | 2017-04-19 09:33 | PDOC2 ---
NOREEN LR MANAGER PATHOLOGY 04/19/17 0933: CARDIAC CONSULT DATE OF CONSULT Date of Consult DATE: 04/19/17 TIME: 08:59 REASON FOR CONSULT Reason for Consult: Malignant HTN, CP REFERRING PHYSICIAN Referring Physician: Hussain SOURCE Source: Chart review, Patient HISTORY OF PRESENT ILLNESS HISTORY OF PRESENT ILLNESS This is a pleasant 41 yo male admitted for complains of high BP. He has been doing well till midnight last night when he was feeling confuse and was having left chest discomfort which was reproducible with cough and palpation. Slightly nauseated but no diaphoresis, palpitations. BP checked at home and it was 238/125. Reports no GARRETT, dizziness, visual or auditory disturbances. Pt feels anxious about this at this time. Denies any use of testosterone therapy and use of creatine powder and no recreational drug use. He continues to lift weights. Verbalized that he saw his PCP his medications was recently adjusted due to high BP. PAST MEDICAL HISTORY Past Medical History Cardiovascular: HTN, Hyperlipidemia, cardiomegaly Pulmonary: No pertinent hx CENTRAL NERVOUS SYSTEM: TIA GI: No pertinent hx Heme/Onc: No pertinent hx Hepatobiliary: No pertinent hx Psych: No pertinent hx Musculoskeletal: Other (No pertinent history) Rheumatologic: No pertinent hx Infectious disease: No pertinent hx ENT: No pertinent hx Renal/: No pertinent hx Endocrine: Other (hypogonadism) Dermatology: No pertinent hx PAST SURGICAL HISTORY Past Surgical History Tonsillectomy, Other (Right thigh muscle repair) FAMILY HISTORY Family History Coronary Artery Disease (grandfather with CAD in his 50s, parents with liver disease) SOCIAL HISTORY Social History Smoke: No ALCOHOL: occasional Drugs: None Lives: with Family CURRENT MEDICATIONS CURRENT MEDICATIONS Current Medications Medications (Trade) Dose Ordered Sig/Isatu Route PRN Reason Start Time Stop Time Status Last Admin Dose Admin Nitroglycerin (Nitro-Bid Oint) 1 inch 1X ONCE TP 04/19/17 03:00 04/19/17 03:01 DC 04/19/17 02:52 Labetalol HCl (Normodyne) 20 mg 1X ONCE IVP 04/19/17 04:00 04/19/17 04:01 DC 04/19/17 03:34 Nicardipine HCl 50 mg/Sodium Chloride 270 ml @ 0 mls/hr CONT PRN IV SEE I/O RECORD 04/19/17 03:45 04/19/17 04:14 ALLERGIES ALLERGIES: Coded Allergies: No Known Drug Allergies (Unverified , 02/25/16) ROS Review of System 14 point ROS evaluated with pertinent positives noted per HPI PHYSICAL EXAM General: Alert, Oriented X3, Cooperative, No acute distress HEENT: Atraumatic, Mucous membr. moist/pink Lungs: Clear to auscultation, Normal air movement Heart: Regular rate (SR), Normal S1, Normal S2, No murmurs Abdomen: Soft, No tenderness Extremities: No cyanosis, No edema Skin: No breakdown, No significant lesion Neuro: Normal speech, Sensation intact Psych/Mental Status: Mental status NL, Mood NL MUSCULOSKELETAL: Osteoarthritic changes both hands VITALS VITALS Vital Signs Date Time Temp Pulse Resp B/P (MAP) Pulse Ox O2 Delivery O2 Flow Rate FiO2 04/19/17 06:00 87 15 178/82 (114) 94 Room Air 04/19/17 05:10 98.1 98.1 04/19/17 04:45 2.0 LABS Lab: Laboratory Tests Test 04/19/17 02:30 White Blood Count 10.0 x10^3/uL (4.0-11.0) Red Blood Count 6.38 x10^6/uL (4.30-5.70) Hemoglobin 18.9 g/dL (13.0-17.5) Hematocrit 55.9 % (39.0-53.0) Mean Corpuscular Volume 88 fL (79-100) Mean Corpuscular Hemoglobin 30 pg (25-35) Mean Corpuscular Hemoglobin Concent 34 g/dL (31-37) Red Cell Distribution Width 14.1 % (11.5-14.5) Platelet Count 268 x10^3/uL (140-400) Neutrophils (%) (Auto) 65 % (31-73) Lymphocytes (%) (Auto) 25 % (24-48) Monocytes (%) (Auto) 7 % (0-9) Eosinophils (%) (Auto) 3 % (0-3) Basophils (%) (Auto) 1 % (0-3) Neutrophils # (Auto) 6.5 x10^3uL (1.8-7.7) Lymphocytes # (Auto) 2.5 x10^3/uL (1.0-4.8) Monocytes # (Auto) 0.7 x10^3/uL (0.0-1.1) Eosinophils # (Auto) 0.2 x10^3/uL (0.0-0.7) Basophils # (Auto) 0.1 x10^3/uL (0.0-0.2) Prothrombin Time 12.9 SEC (11.7-14.0) Prothromb Time International Ratio 1.0 (0.8-1.1) Sodium Level 141 mmol/L (136-145) Potassium Level 3.5 mmol/L (3.5-5.1) Chloride Level 104 mmol/L (98-107) Carbon Dioxide Level 28 mmol/L (21-32) Anion Gap 9 (6-14) Blood Urea Nitrogen 13 mg/dL (8-26) Creatinine 1.2 mg/dL (0.7-1.3) Estimated GFR (Cockcroft-Gault) 80.0 BUN/Creatinine Ratio 11 (6-20) Glucose Level 115 mg/dL (70-99) Calcium Level 9.1 mg/dL (8.5-10.1) Total Bilirubin 0.3 mg/dL (0.2-1.0) Aspartate Amino Transf (AST/SGOT) 54 U/L (15-37) Alanine Aminotransferase (ALT/SGPT) 88 U/L (16-63) Alkaline Phosphatase 82 U/L (46-116) Creatine Kinase 603 U/L (39-308) Creatine Kinase MB (Mass) 5.0 ng/mL (0.0-3.6) Creatine Kinase MB Relative Index 0.8 % (0-4) Troponin I Quantitative < 0.017 ng/mL (0.000-0.055) FI-Cmo-Z-Type Natriuretic Peptide 27 pg/mL (0-124) Total Protein 7.4 g/dL (6.4-8.2) Albumin 4.3 g/dL (3.4-5.0) Albumin/Globulin Ratio 1.4 (1.0-1.7) Lipase 298 U/L (73-393) ECHOCARDIOGRAM ECHOCARDIOGRAM <Conclusion> The left ventricle is normal size. Left ventricle systolic function is normal. The Ejection Fraction is 60-65%. There is mild concentric left ventricular hypertrophy. There is no significant aortic valvular stenosis. Doppler and Color Flow revealed no significant aortic regurgitation. Doppler and Color Flow revealed no mitral valve regurgitation noted. Doppler and Color Flow revealed trace to mild tricuspid regurgitation. The PA pressure was estimated at 35 mmHg. DATE: 01/15/17 1746 STRESS TEST STRESS TEST Conclusion 1. No EKG evidence of stress-induced ischemia. 2. Nuclear imaging shows no reversible ischemia or infarct. 3. Normal left ventricular systolic function with an ejection fraction of 68%. 4. Low risk Lexiscan nuclear stress test. DATE: 01/15/17 1706 ASSESSMENT/PLAN ASSESSMENT/PLAN 1. Malignant HTN: SBP 150s. improving with cardene. Contributing #5 & 6 with recent BP med adjustments. 2. Atypical CP: likely from above. Recent MPI without defects. 3. Hypertensive encephalopathy: better 4. HLP 5. Polycythemia 6. MYLA: unable to afford CPAP. Recommendations 1. CTA Chest/abd/pelvis 2. Repeat EKG. 3. Start on norvasc, imdur, hydralazine, losartan and HCTZ. Clonidine prn 4. Titrate off cardene Problems: DEVEN GRUBBS MD 04/19/17 2666: CARDIAC CONSULT ALLERGIES ALLERGIES: Coded Allergies: No Known Drug Allergies (Unverified , 02/25/16) ASSESSMENT/PLAN ASSESSMENT/PLAN Patient seen and examined. Agree with RACK PUSHER's assessment and plan. CP with atypical features Recent MPI without any ischemia. LV function normal. Adjust oral antihypertensives and titrate cardene off as tolerated. Thank you for your consultation Problems: NOREEN LR APRN Apr 19, 2017 09:33 DEVEN GRUBBS MD Apr 19, 2017 21:56
[2017-04-19] MEDS: hydroCHLOROthiazide 12.5 MG CAPSULE PO SCH (09:47)
[2017-04-19] MEDS: amLODIPine BESYLATE 10 MG TABLET PO SCH (09:47)
[2017-04-19] MEDS: LOSARTAN POTASSIUM 50 MG TABLET. PO SCH (09:47)
[2017-04-19] MEDS: ISOSORBIDE MONONITRATE ER 30 MG TAB.ER.24H PO SCH (09:47)
--- NOTE | 2017-04-19 10:03 | EKG ---
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
[2017-04-19] MEDS ORDERED: CONTRAST GIVEN MC PRN (10:15)
[2017-04-19] MEDS ORDERED: ATOR40TA59 PO (10:15)
[2017-04-19] MEDS ORDERED: IOHEXOL 300 MG/ML 75 ML VIAL IV ONE (10:15)
[2017-04-19] MEDS ORDERED: LAMO25TA PO (10:15)
[2017-04-19] MEDS ORDERED: HYDR12.58 PO (10:15)
[2017-04-19] MEDS ORDERED: ASPI-612 PO (10:16)
--- NOTE | 2017-04-19 13:52 | RAD ---
Indication chest pain. Hypertension. Assess for potential aortic dissection. Multiphase imaging was performed. Initially noncontrast images through the chest, abdomen and pelvis were obtained. This was followed by contrast images. The contrast images were obtained during the late arterial /early portal venous phase. There is not optimal opacification of the aorta but there is felt to be adequate opacification of same. MIP images were generated and reviewed. Volume rendered images were also generated and reviewed. Approximately 100 cc of Omnipaque 300 was administered intravenously. No oral contrast was administered. On the initial noncontrast images there is no definite abnormality seen involving the thoracic aorta. No intramural hematoma is seen. The ascending thoracic aorta is at the upper limits of normal in diameter. The abdominal aorta appeared unremarkable. Occasional minute right renal calculi were noted. On the contrast images the thoracic aorta appears normal. There is no dissection or acute finding seen and the abdominal aorta is unremarkable. The celiac and SMA are widely patent at their origins. There are single main renal arteries which are widely patent. The aortic bifurcation is unremarkable. Common iliac internal iliac external iliac and common femoral arteries appear normal. The lungs are clear. There is no significant hilar or mediastinal adenopathy. The liver and spleen appear unremarkable. The gallbladder is grossly normal. No pancreatic abnormality is seen. No adrenal or renal anomalies are seen outside the minute right renal calculi already referenced. No acute finding is seen in the abdomen or pelvis. Occasional diverticula are seen associated with the large bowel. There is no evidence of active inflammation. IMPRESSION: No acute finding seen in the chest abdomen or pelvis. Unremarkable thoracic and abdominal aorta. No evidence of aneurysm or dissection. Minute right intrarenal calculi PQRS Compliance Statement: One or more of the following individualized dose reduction techniques were utilized for this examination: 1. Automated exposure control 2. Adjustment of the mA and/or kV according to patient size 3. Use of iterative reconstruction technique
[2017-04-19] MEDS: ACETAMINOPHEN 325 MG TABLET. PO PRN (13:54)
[2017-04-19] MEDS ORDERED: HYDROcodone/APAP 5/325MG 1 TAB TABLET PO PRN (15:30)
[2017-04-19] MEDS: HYDROcodone/APAP 5/325MG 1 TAB TABLET PO PRN (15:31)
[2017-04-19 16:34] LABS: BARBITURATES NEG (NEG); BENZODIAZEPINES NEG (NEG); CANNABINOIDS NEG (NEG); COCAINE NEG (NEG); METHADONE NEG (NEG); OPIATES NEG (NEG); PHENCYCLIDINE NEG (NEG)
[2017-04-19] MEDS: ATORVASTATIN CALCIUM 20 MG TABLET PO SCH (20:39)
[2017-04-19] MEDS ORDERED: ZOLPIDEM 5 MG TABLET. PO PRN (21:30)
--- NOTE | 2017-04-19 23:15 | HP ---
ADMIT DATE: 04/19/2017 CHIEF COMPLAINT: Chest pain. HISTORY OF PRESENT ILLNESS: The patient is a pleasant 41-year-old relatively healthy male who presented with chest pain. While he was in the ER, he was noted to have pressures into the 240s. We suspect he has got a cardiac strain causing chest discomfort from his malignant hypertension. I have discussed the case with the ER physician. We are admitting the patient to the ICU. PAST MEDICAL HISTORY: Noncompliance, hypertension, tonsillectomy, hamstring tear, tobacco abuse. ALLERGIES: None. FAMILY HISTORY: Diabetes. SOCIAL HISTORY: He does not drink, smoke or take drugs. He works at a [employer] that makes [employer]. MEDICATIONS: Reviewed. REVIEW OF SYSTEMS: GENERAL: No history of weight change, weakness or fevers. SKIN: No bruising, hair changes or rashes. EYES: No blurred, double or loss of vision. NOSE AND THROAT: No history of nosebleeds, hoarseness or sore throat. HEART: No history of palpitations, chest pain or shortness of breath on exertion. LUNGS: Denies cough, hemoptysis, wheezing or shortness of breath. GASTROINTESTINAL: Denies changes in appetite, nausea, vomiting, diarrhea or constipation. GENITOURINARY: No history of frequency, urgency, hesitancy or nocturia. NEUROLOGIC: Denies history of numbness, tingling, tremor or weakness. PSYCHIATRIC: No history of panic, anxiety or depression. ENDOCRINE: No history of heat or cold intolerance, polyuria or polydipsia. EXTREMITIES: Denies muscle weakness, joint pain, pain on walking or stiffness. PHYSICAL EXAMINATION: VITAL SIGNS: Temperature afebrile, pulse 92, respirations 18, blood pressure 145/70. GENERAL: He is alert, cooperative. His is present. HEART: Normal S1, S2. LUNGS: Clear. ABDOMEN: Soft. EXTREMITIES: No edema. SKIN: No rashes. PSYCHIATRIC: He is stable. VASCULAR: Good capillary refill. ENDOCRINE: No thyromegaly. LYMPHATICS: No cervical nodes. HEMATOPOIETIC: No bruising. LABORATORY DATA: White count 10, hemoglobin 19, platelets 268. Electrolytes are normal. AST a little high at 54, ALT 88. CPK 603. Troponin is 0. ASSESSMENT AND PLAN: Malignant hypertension with an incidental finding of a severe erythrocytosis and elevated liver function tests. We will go ahead and consult GI. Frequent labs. IV hydration. We will start him on appropriate antihypertensives. Try to continue his home medicines. Prognosis is guarded. I told him he needs to quit smoking. AYDE RENTERIA DO DR: BLANCO/kylie JOB#: [id number] / [id number]
[2017-04-20 03:55] VITALS: BP 141/67
[2017-04-20 07:00] VITALS: BP 189/76
[2017-04-20] MEDS: LOSARTAN POTASSIUM 50 MG TABLET. PO SCH (09:00)
[2017-04-20] MEDS: amLODIPine BESYLATE 10 MG TABLET PO SCH (09:00)
[2017-04-20] MEDS: ISOSORBIDE MONONITRATE ER 30 MG TAB.ER.24H PO SCH ×2 (09:01→20:44)
[2017-04-20] MEDS: hydroCHLOROthiazide 12.5 MG CAPSULE PO SCH (09:01)
--- NOTE | 2017-04-20 09:18 | PDOC ---
Provider Note Provider Note Hem-Onc consult 1. Erythrocytosis - likely due to HTN and smoking. Ordered GAYATRI-2 mutation and erythropoietin level f/u with me in 4 weeks See dictation [id number] RAHDA BERMAN MD Apr 20, 2017 09:18
--- NOTE | 2017-04-20 09:47 | PDOC2 ---
GI CONSULT Reason For Consult: Elevated LFTs, erythrocytosis HPI: HPI: 41 y/o male admitted w/ malignant HTN. GI asked to see re: elevated LFTs. Also noted w/ erythrocytosis; hematology has seen and ordered additional labs. H/o elevated transaminases for awhile, says had an US through his PCP (below - unrevealing) w/ labs and was told to drink more water. Drinks 10-12 alcoholic beverages weekly, on statin for HLD. FH significant for liver cancer in his father and some sort of liver disease in his mother. No dysphagia, n/v, abd pain, diarrhea, constipation, weight loss, hematochezia, melena. No pancreas or gallbladder history. Had reflux in college, no longer bothersome. No previous EGD or colonoscopy. PMH: PMH: HTN, HLD, GERD, elevated LFTs, tonsillectomy, right hamstring surgery FH: Family History: Cancer (father - liver), Other (mother had liver disease) Social History: Smoke: <1 pack per day ALCOHOL: other (10-12 drinks weekly) Drugs: None ROS: GEN: Denies fevers, chills, sweats HEENT: Denies blurred vision, sore throat CV: +CP RESP: Denies shortness of air, cough GI: Per HPI : Denies hematuria, dysuria ENDO: Denies weight changes NEURO: +confused (better) MSK: Denies weakness, joint pain/swelling SKIN: Denies jaundice, pruritus Vitals: Vitals: Vital Signs Date Time Temp Pulse Resp B/P (MAP) Pulse Ox O2 Delivery O2 Flow Rate FiO2 04/20/17 09:01 76 189/76 04/20/17 07:00 97.7 20 97 Room Air 97.7 Labs: Labs: Laboratory Tests Test 04/19/17 09:50 04/19/17 15:46 04/19/17 16:20 Troponin I Quantitative < 0.017 ng/mL (0.000-0.055) < 0.017 ng/mL (0.000-0.055) Urine Opiates Screen Neg (NEG) Urine Methadone Screen Neg (NEG) Urine Barbiturates Neg (NEG) Urine Phencyclidine Screen Neg (NEG) Urine Amphetamine/Methamphetamine Neg (NEG) Urine Benzodiazepines Screen Neg (NEG) Urine Cocaine Screen Neg (NEG) Urine Cannabinoids Screen Neg (NEG) Urine Ethyl Alcohol Neg (NEG) Allergies: Coded Allergies: No Known Drug Allergies (Unverified , 02/25/16) Medications: Current Medications Medications (Trade) Dose Ordered Sig/Isatu Route PRN Reason Start Time Stop Time Status Last Admin Dose Admin Isosorbide Mononitrate (Imdur) 60 mg DAILY PO 04/19/17 10:00 04/20/17 09:13 DC 04/20/17 09:01 Hydralazine HCl (Apresoline) 50 mg TID PO 04/19/17 10:00 04/20/17 09:00 Amlodipine Besylate (Norvasc) 10 mg DAILY PO 04/19/17 10:00 04/20/17 09:00 Losartan Potassium (Cozaar) 100 mg DAILY PO 04/19/17 10:00 04/20/17 09:00 Hydrochlorothiazide (Microzide) 12.5 mg DAILY PO 04/19/17 10:00 04/20/17 09:01 Atorvastatin Calcium (Lipitor) 20 mg QHS PO 04/19/17 21:00 04/19/17 20:39 Iohexol (Omnipaque 300 Mg/ml) 75 ml 1X ONCE IV 04/19/17 10:15 04/19/17 10:16 DC 04/19/17 10:15 Acetaminophen (Tylenol) 650 mg PRN Q6HRS PRN PO MILD PAIN / TEMP 04/19/17 14:00 04/19/17 13:54 Acetaminophen/ Hydrocodone Bitart (Lortab 5/325) 2 tab PRN Q4HRS PRN PO SEVERE PAIN 04/19/17 15:30 04/19/17 15:31 Zolpidem Tartrate (Ambien) 5 mg PRN QHS PRN PO INSOMNIA, MAY REPEAT IN 1HR 04/19/17 21:30 04/19/17 23:46 Imaging: Imaging: Chest/A/P CTA 04/19/17 Multiphase imaging was performed. Initially noncontrast images through the chest , abdomen and pelvis were obtained. This was followed by contrast images. The contrast images were obtained during the late arterial /early portal venous phase. There is not optimal opacification of the aorta but there isfelt to be adequate opacification of same. MIP images were generated and reviewed. Volume rendered images were also generated and reviewed. Approximately 100 cc of Omnipaque 300 was administered intravenously. No oral contrast was administered. On the initial noncontrast images there is no definite abnormality seen involving the thoracic aorta. No intramural hematoma is seen. The ascending thoracic aorta is at the upper limits of normal in diameter. The abdominal aorta appeared unremarkable. Occasional minute right renal calculi were noted. On the contrast images the thoracic aorta appears normal. There is no dissection or acute finding seen and the abdominal aorta is unremarkable. The celiac and SMA are widely patent at their origins. There are single main renal arteries which are widely patent. The aortic bifurcation is unremarkable. Common iliac internal iliac external iliac and common femoral arteries appear normal. The lungs are clear. There is no significant hilar or mediastinal adenopathy. The liver and spleen appear unremarkable. The gallbladder is grossly normal. No pancreatic abnormality is seen. No adrenal or renal anomalies are seen outside the minute right renal calculi already referenced. No acute finding is seen in the abdomen or pelvis. Occasional diverticula are seen associated with the large bowel. There is no evidence of active inflammation. IMPRESSION: No acute finding seen in the chest abdomen or pelvis. Unremarkable thoracic and abdominal aorta. No evidence of aneurysm or dissection. Minute right intrarenal calculi. RUQ US 02/2017 Findings: The liver is normal in size and echogenicity without any focal lesions. There is no intra or extrahepatic biliary ductal dilatation. Common bile duct measures 3.0 mm The gallbladder is well distended without any shadowing intraluminal calculus, pericholecystic fluid or gallbladder wall thickening. The right kidney appears unremarkable and measures 12.7 cm in length. There is no hydronephrosis or perinephric fluid collection. The visualized pancreas and IVC appear unremarkable. Impression: 1. Essentially unremarkable right upper quadrant sonogram. PE: GEN: NAD HEENT: Atraumatic, PERRL LUNGS: CTAB HEART: RRR ABD: NABS, S/ND/NT EXTREMITY: No edema SKIN: No rashes, no jaundice NEURO/PSYCH: A & O 3 A/P: A/P: HTN Transaminitis -history of this upon review of labs -US in 02/2017 unrevealing -drinks alcohol, also on statin for HLD Erythrocytosis -per hematology, additional labs pending FH liver disease H/o GERD - no longer bothersome CRC screen -average risk -- Check Hep serology, iron studies. PRICILA FINCH Apr 20, 2017 09:47
[2017-04-20 11:00] VITALS: BP 201/75
[2017-04-20] MEDS: ACETAMINOPHEN 325 MG TABLET. PO PRN (11:11)
--- NOTE | 2017-04-20 11:27 | PDOC ---
CARDIO Progress Notes Date and Time Date of Service 04/20/17 Time of Evaluation 1115 Subjective Subjective: No Chest Pain, No shortness of breath, Other (c/o GARRETT this morning) Vitals Vitals Vital Signs Date Time Temp Pulse Resp B/P (MAP) Pulse Ox O2 Delivery O2 Flow Rate FiO2 04/20/17 09:01 76 189/76 04/20/17 08:00 Room Air 04/20/17 07:00 97.7 20 97 97.7 Weight Weight [ ] Input and Output Intake and Output Intake and Output 04/21/17 07:00 Intake Total 250 ml Balance 250 ml Intake Oral 250 ml Laboratory Labs Laboratory Tests Test 04/19/17 15:46 04/19/17 16:20 Troponin I Quantitative < 0.017 ng/mL (0.000-0.055) Urine Opiates Screen Neg (NEG) Urine Methadone Screen Neg (NEG) Urine Barbiturates Neg (NEG) Urine Phencyclidine Screen Neg (NEG) Urine Amphetamine/Methamphetamine Neg (NEG) Urine Benzodiazepines Screen Neg (NEG) Urine Cocaine Screen Neg (NEG) Urine Cannabinoids Screen Neg (NEG) Urine Ethyl Alcohol Neg (NEG) Physical Exam HEENT: Neck Supple W Full Motion Chest: Symmetric LUNGS: Clear to Auscultation Heart: S1S2, RRR Abdomen: Soft N/T Extremities: No Edema, No Calf Tenderness Neurology: alert, oriented, follow commands Assessment Assessment 1. Malignant HTN: remains labile. Imdur converted to BID dosing. Clonidine and Hydralazine IV PRN. Consider adding scheduled Clonidine. Recent renal duplex without evidence of ANJUM. Continue monitoring to assess need for changes. 2. Atypical CP: likely from above. Troponin series normal- AMI ruled out. Recent MPI without defects. 3. Hypertensive encephalopathy: better 4. HLP; on low-dose statin 5. Erythrocytosis; as per hemonc 6. MYLA: unable to afford CPAP. 7. Elevated LFT's; hold statin as warranted. as per MOISE CROWDER APRN Apr 20, 2017 11:27
[2017-04-20 11:31] LABS: % SAT IRON 30 % (15-34); IRON,SERUM 128 ug/dL (65-175)
--- NOTE | 2017-04-20 11:33 | CONS ---
DATE OF CONSULTATION: 04/20/2017 REQUESTING PHYSICIAN: Dr. Rocío Cleary. REASON FOR CONSULTATION: Erythrocytosis. HISTORY OF PRESENT ILLNESS: The patient is a 41-year-old gentleman who was admitted to [facility] on 04/19/2017 for uncontrolled hypertension. His blood pressure was 238/125. He had mild headache. No chest pain. He had mild discomfort in the left chest area, but no significant pain, no fevers, chills or night sweats. No loss of weight or loss of appetite. No hematemesis, melena, hematochezia, no hemoptysis or hematuria. He goes to the gym regularly and works out. He used to take testosterone injection that started in 2015, and he quit around 11/2016. He was noted to have erythrocytosis with a hemoglobin of 18.9, hematocrit 55.9 and RBC of 6.38 on 04/19/2017, and hence I was consulted. Review of the old records indicates that his hemoglobin was normal at 15.4 on 01/24/2017. It was also normal on 12/08/2015 at 14.7. However, in 06/2016, the hemoglobin was elevated at 18.0. There is no history of thromboembolic events. No bleeding events. He underwent a CT scan of the chest, abdomen and pelvis on 04/19/2017 for evaluation of potential aortic dissection. No acute findings are noticed, unremarkable aorta. Minute right intrarenal calculi were noted. PAST MEDICAL HISTORY: Hypertension, hyperlipidemia, cardiomegaly. Hypogonadism, for which he was on testosterone injection until approximately in 11/2016, and he was taking it every 2 weeks for about a year and a half. PAST SURGICAL HISTORY: Tonsillectomy, right thigh muscle repair. FAMILY HISTORY: Positive for coronary artery disease. Mother has history of blood clots. Mother also had a history of cancer and father had liver cancer. SOCIAL HISTORY: He smokes half a pack of cigarettes per day, and he started to smoke in 2016. I have advised him to quit smoking. He drinks alcohol occasionally. REVIEW OF SYSTEMS: A 12-point review of system was performed. Pertinent positives are mentioned in the history of present illness. Rest of the system review is negative. PHYSICAL EXAMINATION: GENERAL APPEARANCE: The patient is a 41-year-old gentleman who is in no acute cardiorespiratory distress. VITAL SIGNS: Blood pressure 189/76, temperature 97.7. HEENT: Head atraumatic, normocephalic. Eyes: No icterus. NECK: Supple. CHEST: Bilaterally symmetrical. HEART: S1, S2 normal. ABDOMEN: Soft, nontender. No hepatosplenomegaly. CENTRAL NERVOUS SYSTEM: No focal deficits. LYMPHATICS: No lymphadenopathy. SKIN: No rashes. PSYCHOLOGIC: Mood and affect are appropriate. MUSCULOSKELETAL: No joint effusions. LABORATORY DATA: WBC 10, hemoglobin 18.9, hematocrit 55.9, platelet count 268, RBC 6.38 on 04/19/2017. Sodium 141, potential 3.5, creatinine 1.2, total bilirubin 0.3, AST 54, ALT 88, alkaline phosphatase 82, total protein 7.4, albumin 4.3. IMPRESSION AND PLAN: 1. Erythrocytosis. I suspect that he likely has secondary erythrocytosis due to uncontrolled hypertension. Review of the prior records indicates that he had normal hemoglobin in 01/2017. However, the old records also indicated that he had an episode of erythrocytosis on 06/14/2016 when it was 18.0. I will proceed with further workup with JAK2 mutation analysis and serum erythropoietin level. If the JAK2 mutation is positive, then this would help make a diagnosis of polycythemia vera. If it is negative, then I would suspect that he likely has relative erythrocytosis due to uncontrolled hypertension. I have advised that he return for followup in 4 weeks to review the results of the above studies, and I will also check a complete blood count at that time to check if his blood counts have improved. I also advised the patient that testosterone injections will increase the risk of erythrocytosis. I also advised him to quit smoking, which would increase the risk of erythrocytosis and thromboembolic events and coronary artery disease. All his questions were answered. 2. Elevated liver function tests. GI consulted. I discussed with Francheska from Gastroenterology. 3. Malignant hypertension, appreciate management per Cardiology. I discussed with registered nurse. RADHA BERMAN MD DR: PALMER/kylie JOB#: [id number] / [id number] NOREEN Smith APRN
[2017-04-20 12:00] VITALS: BP 190/66
--- NOTE | 2017-04-20 12:04 | PDOC ---
PROGRESS NOTES Chief Complaint Chief Complaint Malignant HTN Chest Pain Polycythemia Elevated LFT's History of Present Illness History of Present Illness The patient is a pleasant 41-year-old relatively healthy male who presented to ED with chest pain, was noted to have pressures into the 240s upon admission. Suspected cardiac strain causing chest discomfort secondary to malignant hypertension. Was admitted to ICU, and subsequently transferred to cardiovascular care unit yesterday. Pt's labs indicate mild elevation of LFT's and substantial elevation of Hb/Hct. Patient is being followed by cardiology re : CP/HTN, GI re: elevated LFT's, and Heme-Onc re: polycythemia. Vitals Vitals Vital Signs Date Time Temp Pulse Resp B/P (MAP) Pulse Ox O2 Delivery O2 Flow Rate FiO2 04/20/17 09:01 76 189/76 04/20/17 08:00 Room Air 04/20/17 07:00 97.7 20 97 97.7 Physical Exam General: Alert, Oriented X3, Cooperative, No acute distress Heart: Regular rate (SR), Normal S1, Normal S2, No murmurs Lungs: Clear Abdomen: Soft, No tenderness Extremities: No cyanosis, No edema Skin: No breakdown, No significant lesion Labs LABS Laboratory Tests Test 04/19/17 15:46 04/19/17 16:20 04/20/17 10:55 Troponin I Quantitative < 0.017 ng/mL (0.000-0.055) Urine Opiates Screen Neg (NEG) Urine Methadone Screen Neg (NEG) Urine Barbiturates Neg (NEG) Urine Phencyclidine Screen Neg (NEG) Urine Amphetamine/Methamphetamine Neg (NEG) Urine Benzodiazepines Screen Neg (NEG) Urine Cocaine Screen Neg (NEG) Urine Cannabinoids Screen Neg (NEG) Urine Ethyl Alcohol Neg (NEG) Iron Level 128 ug/dL (65-175) Total Iron Binding Capacity 432 ug/dL (250-450) Iron Saturation 30 % (15-34) Review of Systems Review of Systems Patient is seen at bedside resting comfortably. Denies CP presently. Denies SOB. Denies abdominal pain or distension. Assessment and Plan Assessmemt and Plan Problems Medical Problems: (1) Accelerated hypertension Status: Acute (2) Chest pain Status: Acute (3) Malignant hypertension Status: Acute Malignant HTN Chest Pain Elevated LFT's Polycythemia Plan: Continue serial Cardiac monitoring COnsult cardiology Consult GI F/u with heme-onc as outpatient Order PO antihypertensives PT/OT Discharge probable later today if subspecialists agree Problems: Comment Review of Relevant I have reviewed the following items gabo (where applicable) has been applied. Labs Laboratory Tests Test 04/19/17 02:30 04/19/17 05:31 04/19/17 09:50 04/19/17 15:46 White Blood Count 10.0 x10^3/uL (4.0-11.0) Red Blood Count 6.38 x10^6/uL (4.30-5.70) Hemoglobin 18.9 g/dL (13.0-17.5) Hematocrit 55.9 % (39.0-53.0) Mean Corpuscular Volume 88 fL (79-100) Mean Corpuscular Hemoglobin 30 pg (25-35) Mean Corpuscular Hemoglobin Concent 34 g/dL (31-37) Red Cell Distribution Width 14.1 % (11.5-14.5) Platelet Count 268 x10^3/uL (140-400) Neutrophils (%) (Auto) 65 % (31-73) Lymphocytes (%) (Auto) 25 % (24-48) Monocytes (%) (Auto) 7 % (0-9) Eosinophils (%) (Auto) 3 % (0-3) Basophils (%) (Auto) 1 % (0-3) Neutrophils # (Auto) 6.5 x10^3uL (1.8-7.7) Lymphocytes # (Auto) 2.5 x10^3/uL (1.0-4.8) Monocytes # (Auto) 0.7 x10^3/uL (0.0-1.1) Eosinophils # (Auto) 0.2 x10^3/uL (0.0-0.7) Basophils # (Auto) 0.1 x10^3/uL (0.0-0.2) Prothrombin Time 12.9 SEC (11.7-14.0) Prothromb Time International Ratio 1.0 (0.8-1.1) Sodium Level 141 mmol/L (136-145) Potassium Level 3.5 mmol/L (3.5-5.1) Chloride Level 104 mmol/L (98-107) Carbon Dioxide Level 28 mmol/L (21-32) Anion Gap 9 (6-14) Blood Urea Nitrogen 13 mg/dL (8-26) Creatinine 1.2 mg/dL (0.7-1.3) Estimated GFR (Cockcroft-Gault) 80.0 BUN/Creatinine Ratio 11 (6-20) Glucose Level 115 mg/dL (70-99) Calcium Level 9.1 mg/dL (8.5-10.1) Total Bilirubin 0.3 mg/dL (0.2-1.0) Aspartate Amino Transf (AST/SGOT) 54 U/L (15-37) Alanine Aminotransferase (ALT/SGPT) 88 U/L (16-63) Alkaline Phosphatase 82 U/L (46-116) Creatine Kinase 603 U/L (39-308) Creatine Kinase MB (Mass) 5.0 ng/mL (0.0-3.6) Creatine Kinase MB Relative Index 0.8 % (0-4) Troponin I Quantitative < 0.017 ng/mL (0.000-0.055) < 0.017 ng/mL (0.000-0.055) < 0.017 ng/mL (0.000-0.055) GQ-Jaa-O-Type Natriuretic Peptide 27 pg/mL (0-124) Total Protein 7.4 g/dL (6.4-8.2) Albumin 4.3 g/dL (3.4-5.0) Albumin/Globulin Ratio 1.4 (1.0-1.7) Lipase 298 U/L (73-393) Nasal Screen MRSA (PCR) Negative (Negative) Test 04/19/17 16:20 04/20/17 10:55 Urine Opiates Screen Neg (NEG) Urine Methadone Screen Neg (NEG) Urine Barbiturates Neg (NEG) Urine Phencyclidine Screen Neg (NEG) Urine Amphetamine/Methamphetamine Neg (NEG) Urine Benzodiazepines Screen Neg (NEG) Urine Cocaine Screen Neg (NEG) Urine Cannabinoids Screen Neg (NEG) Urine Ethyl Alcohol Neg (NEG) Iron Level 128 ug/dL (65-175) Total Iron Binding Capacity 432 ug/dL (250-450) Iron Saturation 30 % (15-34) Laboratory Tests Test 04/19/17 15:46 04/19/17 16:20 04/20/17 10:55 Troponin I Quantitative < 0.017 ng/mL (0.000-0.055) Urine Opiates Screen Neg (NEG) Urine Methadone Screen Neg (NEG) Urine Barbiturates Neg (NEG) Urine Phencyclidine Screen Neg (NEG) Urine Amphetamine/Methamphetamine Neg (NEG) Urine Benzodiazepines Screen Neg (NEG) Urine Cocaine Screen Neg (NEG) Urine Cannabinoids Screen Neg (NEG) Urine Ethyl Alcohol Neg (NEG) Iron Level 128 ug/dL (65-175) Total Iron Binding Capacity 432 ug/dL (250-450) Iron Saturation 30 % (15-34) Medications Current Medications Nitroglycerin (Nitro-Bid Oint) 1 inch 1X ONCE TP Last administered on 02:52; Start 04/19/17 at 03:00; Stop 04/19/17 at 03:01; Status DC Labetalol HCl (Normodyne) 20 mg 1X ONCE IVP Last administered on 04/19/17 03 :34; Start 04/19/17 at 04:00; Stop 04/19/17 at 04:01; Status DC Nicardipine HCl 50 mg/Sodium Chloride 270 ml @ 0 mls/hr CONT PRN IV SEE I/O RECORD Last administered on 04/19/17 04:14; Start 04/19/17 at 03:45; Stop at 09:30; Status DC Ondansetron HCl (Zofran) 4 mg PRN Q8HRS PRN IV NAUSEA/VOMITING; Start at 04:00; Stop 04/20/17 at 03:59; Status DC Morphine Sulfate 2 mg PRN Q2HR PRN IV SEVERE PAIN; Start 04/19/17 at 04:00; Stop 04/20/17 at 03:59; Status DC Nicardipine HCl 50 mg/Sodium Chloride 270 ml @ 0 mls/hr CONT PRN IV SEE I/O RECORD; Start 04/19/17 at 04:00; Status UNV Isosorbide Mononitrate (Imdur) 60 mg DAILY PO Last administered on 04/20/17 09:01; Start 04/19/17 at 10:00; Stop 04/20/17 at 09:13; Status DC Hydralazine HCl (Apresoline) 50 mg TID PO Last administered on 04/20/17 09:00 ; Start 04/19/17 at 10:00 Amlodipine Besylate (Norvasc) 10 mg DAILY PO Last administered on 04/20/17 09 :00; Start 04/19/17 at 10:00 Clonidine HCl (Catapres) 0.2 mg PRN Q1HR PRN PO HYPERTENSION, SEE COMMENTS; Start 04/19/17 at 09:15 Losartan Potassium (Cozaar) 100 mg DAILY PO Last administered on 04/20/17 09: 00; Start 04/19/17 at 10:00 Hydrochlorothiazide (Microzide) 12.5 mg DAILY PO Last administered on 09:01; Start 04/19/17 at 10:00 Hydralazine HCl (Apresoline Inj) 10 mg PRN Q4HRS PRN IVP ELEVATED BP, SEE COMMENTS; Start 04/19/17 at 09:15 Atorvastatin Calcium (Lipitor) 20 mg QHS PO Last administered on 04/19/17 20: 39; Start 04/19/17 at 21:00 Iohexol (Omnipaque 300 Mg/ml) 75 ml 1X ONCE IV Last administered on 10:15; Start 04/19/17 at 10:15; Stop 04/19/17 at 10:16; Status DC Info (Do NOT chart on this entry -- for MONITORING) 1 each PRN DAILY PRN MC SEE COMMENTS; Start 04/19/17 at 10:15; Stop 04/21/17 at 10:14 Acetaminophen (Tylenol) 650 mg PRN Q6HRS PRN PO MILD PAIN / TEMP Last administered on 04/20/17 11:11; Start 04/19/17 at 14:00 Acetaminophen/ Hydrocodone Bitart (Lortab 5/325) 1 tab PRN Q4HRS PRN PO MODERATE PAIN; Start 04/19/17 at 15:30 Acetaminophen/ Hydrocodone Bitart (Lortab 5/325) 2 tab PRN Q4HRS PRN PO SEVERE PAIN Last administered on 04/19/17 15:31; Start 04/19/17 at 15:30 Zolpidem Tartrate (Ambien) 5 mg PRN QHS PRN PO INSOMNIA, MAY REPEAT IN 1HR Last administered on 04/19/17 23:46; Start 04/19/17 at 21:30 Isosorbide Mononitrate (Imdur) 60 mg BID PO ; Start 04/20/17 at 21:00 Active Scripts Active Cozaar (Losartan Potassium) 50 Mg Tablet 100 Mg PO DAILY 30 Days Hydralazine Hcl 50 Mg Tablet 50 Mg PO TID 30 Days Amlodipine Besylate 10 Mg Tablet 10 Mg PO DAILY 30 Days Proair Hfa Inhaler (Albuterol Sulfate) 8.5 Gm Hfa.aer.ad 1 Puff INH PRN Q6HRS PRN Reported Aspirin Ec (Aspirin) 81 Mg Tablet.dr 1 Tab PO DAILY Atorvastatin Calcium 40 Mg Tablet 1 Tab PO QHS Lamotrigine 25 Mg Tablet 2 Tab PO QHS Hydrochlorothiazide Tablet (Hydrochlorothiazide) 12.5 Mg Tablet 1 Tab PO DAILY Vitals/I & O Vital Sign - Last 24 Hours 04/19/17 04/19/17 04/19/17 04/19/17 12:00 13:49 14:00 15:31 Pulse 90 91 95 Resp 14 15 12 B/P (MAP) 140/51 (80) 159/68 159/68 (98) Pulse Ox 96 95 98 O2 Delivery Room Air Room Air Room Air 04/19/17 04/19/17 04/19/17 04/19/17 16:00 16:30 17:00 19:53 Temp 98.1 98.2 98.1 98.2 Pulse 104 102 89 Resp 24 18 2 20 B/P (MAP) 180/68 (105) 170/58 (95) 130/61 (84) Pulse Ox 97 97 96 96 O2 Delivery Room Air Room Air Room Air Room Air 04/19/17 04/19/17 04/19/17 04/20/17 20:00 20:39 23:41 03:55 Temp 97.6 98.0 97.6 98.0 Pulse 89 78 74 Resp 18 18 B/P (MAP) 130/61 137/68 (91) 141/67 (91) Pulse Ox 96 96 O2 Delivery Room Air Room Air Room Air 04/20/17 04/20/17 04/20/17 04/20/17 07:00 08:00 09:00 09:00 Temp 97.7 97.7 Pulse 76 76 76 Resp 20 B/P (MAP) 189/76 (113) 189/76 189/76 Pulse Ox 97 O2 Delivery Room Air Room Air 04/20/17 04/20/17 09:00 09:01 Pulse 76 76 B/P (MAP) 189/76 189/76 Intake and Output 04/20/17 04/20/17 04/21/17 15:00 23:00 07:00 Intake Total 250 ml Balance 250 ml AYDE RENTERIA III, DO Apr 20, 2017 12:04
[2017-04-20 15:00] VITALS: BP 149/70
[2017-04-20 20:01] VITALS: BP 139/86
[2017-04-20] MEDS: ATORVASTATIN CALCIUM 20 MG TABLET PO SCH (20:44)
[2017-04-20] MEDS: HYDROcodone/APAP 5/325MG 1 TAB TABLET PO PRN (20:46)
[2017-04-21 00:15] LABS: HEP A IGM ABDY Negative (Negative)
[2017-04-21] MEDS: HYDROcodone/APAP 5/325MG 1 TAB TABLET PO PRN ×2 (01:32→09:11)
[2017-04-21 03:22] VITALS: BP 177/74
[2017-04-21 07:00] VITALS: BP 163/80
[2017-04-21] MEDS ORDERED: ALPRAZolam 0.5 MG TABLET PO PRN (07:30)
[2017-04-21] MEDS: LOSARTAN POTASSIUM 50 MG TABLET. PO SCH (08:02)
[2017-04-21] MEDS: amLODIPine BESYLATE 10 MG TABLET PO SCH (08:02)
[2017-04-21] MEDS: ISOSORBIDE MONONITRATE ER 30 MG TAB.ER.24H PO SCH (08:03)
[2017-04-21] MEDS: hydroCHLOROthiazide 12.5 MG CAPSULE PO SCH (08:03)
--- NOTE | 2017-04-21 08:22 | PDOC ---
PROGRESS NOTES Subjective Subjective c/c -f/u of Erythrocytosis. ROS - has headache Objective Objective Vital Signs Date Time Temp Pulse Resp B/P (MAP) Pulse Ox O2 Delivery O2 Flow Rate FiO2 04/21/17 08:03 77 177/74 04/21/17 03:22 97.2 20 97 Nasal Cannula 2.0 97.2 Physical Exam General: Alert, Oriented X3, No acute distress Neuro: Normal speech Psych/Mental Status: Mental status NL Assessment Assessment Problems Medical Problems: (1) Accelerated hypertension Status: Acute (2) Chest pain Status: Acute (3) Malignant hypertension Status: Acute IMPRESSION AND PLAN: 1. Erythrocytosis. I suspect that he likely has secondary erythrocytosis due to uncontrolled hypertension. Review of the prior records indicates that he had normal hemoglobin in 01/2017. However, the old records also indicated that he had an episode of erythrocytosis on 06/14/2016 when it was 18.0. I will proceed with further workup with JAK2 mutation analysis and serum erythropoietin level. If the JAK2 mutation is positive, then this would help make a diagnosis of polycythemia vera. If it is negative, then I would suspect that he likely has relative erythrocytosis due to uncontrolled hypertension. I have advised that he return for followup in 4 weeks to review the results of the above studies, and I will also check a complete blood count at that time to check if his blood counts have improved. I also advised the patient that testosterone injections will increase the risk of erythrocytosis. I also advised him to quit smoking, which would increase the risk of erythrocytosis and thromboembolic events and coronary artery disease. All his questions were answered. 2. Elevated liver function tests. GI consulted. I discussed with Francheska from Gastroenterology. 3. Malignant hypertension, appreciate management per Cardiology. 4. GARRETT due to HTN Comment Review of Relevant I have reviewed the following items gabo (where applicable) has been applied. Labs Laboratory Tests Test 04/19/17 09:50 04/19/17 15:46 04/19/17 16:20 04/20/17 10:55 Troponin I Quantitative < 0.017 ng/mL (0.000-0.055) < 0.017 ng/mL (0.000-0.055) Urine Opiates Screen Neg (NEG) Urine Methadone Screen Neg (NEG) Urine Barbiturates Neg (NEG) Urine Phencyclidine Screen Neg (NEG) Urine Amphetamine/Methamphetamine Neg (NEG) Urine Benzodiazepines Screen Neg (NEG) Urine Cocaine Screen Neg (NEG) Urine Cannabinoids Screen Neg (NEG) Urine Ethyl Alcohol Neg (NEG) Iron Level 128 ug/dL (65-175) Total Iron Binding Capacity 432 ug/dL (250-450) Iron Saturation 30 % (15-34) Hepatitis A IgM Antibody Negative (Negative) Hepatitis B Surface Antigen Negative (Negative) Hepatitis B Core IgM Antibody Negative (Negative) Hepatitis C Antibody <0.1 s/co ratio Laboratory Tests Test 04/20/17 10:55 Iron Level 128 ug/dL (65-175) Total Iron Binding Capacity 432 ug/dL (250-450) Iron Saturation 30 % (15-34) Hepatitis A IgM Antibody Negative (Negative) Hepatitis B Surface Antigen Negative (Negative) Hepatitis B Core IgM Antibody Negative (Negative) Hepatitis C Antibody <0.1 s/co ratio Medications Current Medications Nitroglycerin (Nitro-Bid Oint) 1 inch 1X ONCE TP Last administered on 02:52; Start 04/19/17 at 03:00; Stop 04/19/17 at 03:01; Status DC Labetalol HCl (Normodyne) 20 mg 1X ONCE IVP Last administered on 04/19/17 03 :34; Start 04/19/17 at 04:00; Stop 04/19/17 at 04:01; Status DC Nicardipine HCl 50 mg/Sodium Chloride 270 ml @ 0 mls/hr CONT PRN IV SEE I/O RECORD Last administered on 04/19/17 04:14; Start 04/19/17 at 03:45; Stop at 09:30; Status DC Ondansetron HCl (Zofran) 4 mg PRN Q8HRS PRN IV NAUSEA/VOMITING; Start at 04:00; Stop 04/20/17 at 03:59; Status DC Morphine Sulfate 2 mg PRN Q2HR PRN IV SEVERE PAIN; Start 04/19/17 at 04:00; Stop 04/20/17 at 03:59; Status DC Nicardipine HCl 50 mg/Sodium Chloride 270 ml @ 0 mls/hr CONT PRN IV SEE I/O RECORD; Start 04/19/17 at 04:00; Status UNV Isosorbide Mononitrate (Imdur) 60 mg DAILY PO Last administered on 04/20/17 09:01; Start 04/19/17 at 10:00; Stop 04/20/17 at 09:13; Status DC Hydralazine HCl (Apresoline) 50 mg TID PO Last administered on 04/21/17 08:02 ; Start 04/19/17 at 10:00 Amlodipine Besylate (Norvasc) 10 mg DAILY PO Last administered on 04/21/17 08 :02; Start 04/19/17 at 10:00 Clonidine HCl (Catapres) 0.2 mg PRN Q1HR PRN PO HYPERTENSION, SEE COMMENTS; Start 04/19/17 at 09:15 Losartan Potassium (Cozaar) 100 mg DAILY PO Last administered on 04/21/17 08: 02; Start 04/19/17 at 10:00 Hydrochlorothiazide (Microzide) 12.5 mg DAILY PO Last administered on 08:03; Start 04/19/17 at 10:00 Hydralazine HCl (Apresoline Inj) 10 mg PRN Q4HRS PRN IVP ELEVATED BP, SEE COMMENTS Last administered on 04/20/17 12:53; Start 04/19/17 at 09:15 Atorvastatin Calcium (Lipitor) 20 mg QHS PO Last administered on 04/20/17 20: 44; Start 04/19/17 at 21:00 Iohexol (Omnipaque 300 Mg/ml) 75 ml 1X ONCE IV Last administered on 10:15; Start 04/19/17 at 10:15; Stop 04/19/17 at 10:16; Status DC Info (Do NOT chart on this entry -- for MONITORING) 1 each PRN DAILY PRN MC SEE COMMENTS; Start 04/19/17 at 10:15; Stop 04/21/17 at 10:14 Acetaminophen (Tylenol) 650 mg PRN Q6HRS PRN PO MILD PAIN / TEMP Last administered on 04/20/17 11:11; Start 04/19/17 at 14:00 Acetaminophen/ Hydrocodone Bitart (Lortab 5/325) 1 tab PRN Q4HRS PRN PO MODERATE PAIN; Start 04/19/17 at 15:30 Acetaminophen/ Hydrocodone Bitart (Lortab 5/325) 2 tab PRN Q4HRS PRN PO SEVERE PAIN Last administered on 04/21/17 01:32; Start 04/19/17 at 15:30 Zolpidem Tartrate (Ambien) 5 mg PRN QHS PRN PO INSOMNIA, MAY REPEAT IN 1HR Last administered on 04/19/17 23:46; Start 04/19/17 at 21:30 Isosorbide Mononitrate (Imdur) 60 mg BID PO Last administered on 04/21/17 08: 03; Start 04/20/17 at 21:00 Alprazolam (Xanax) 0.5 mg PRN Q6HRS PRN PO ANXIETY / AGITATION Last administered on 04/21/17 08:01; Start 04/21/17 at 07:30 Active Scripts Active Cozaar (Losartan Potassium) 50 Mg Tablet 100 Mg PO DAILY 30 Days Hydralazine Hcl 50 Mg Tablet 50 Mg PO TID 30 Days Amlodipine Besylate 10 Mg Tablet 10 Mg PO DAILY 30 Days Proair Hfa Inhaler (Albuterol Sulfate) 8.5 Gm Hfa.aer.ad 1 Puff INH PRN Q6HRS PRN Reported Aspirin Ec (Aspirin) 81 Mg Tablet.dr 1 Tab PO DAILY Atorvastatin Calcium 40 Mg Tablet 1 Tab PO QHS Lamotrigine 25 Mg Tablet 2 Tab PO QHS Hydrochlorothiazide Tablet (Hydrochlorothiazide) 12.5 Mg Tablet 1 Tab PO DAILY Vitals/I & O Vital Sign - Last 24 Hours 04/20/17 04/20/17 04/20/17 04/20/17 09:00 09:00 09:00 09:01 Pulse 76 76 76 76 B/P (MAP) 189/76 189/76 189/76 189/76 04/20/17 04/20/17 04/20/17 04/20/17 11:00 12:00 12:51 12:53 Temp 97.6 97.6 Pulse 86 76 76 Resp 20 B/P (MAP) 201/75 (117) 190/66 (107) 190/66 190/66 Pulse Ox 98 O2 Delivery Room Air 04/20/17 04/20/17 04/20/17 04/20/17 15:00 19:25 19:45 20:01 Temp 97.9 97.4 97.9 97.4 Pulse 88 87 Resp 20 18 20 B/P (MAP) 149/70 (96) 139/86 (103) Pulse Ox 97 96 O2 Delivery Room Air Room Air Room Air Room Air 04/20/17 04/20/17 04/21/17 04/21/17 20:44 20:45 03:22 08:02 Temp 97.2 97.2 Pulse 77 77 77 Resp 20 B/P (MAP) 139/86 139/86 177/74 (108) 177/74 Pulse Ox 97 O2 Delivery Nasal Cannula O2 Flow Rate 2.0 04/21/17 04/21/17 04/21/17 08:02 08:02 08:03 Pulse 77 77 77 B/P (MAP) 177/74 177/74 177/74 RADHA BERMAN MD Apr 21, 2017 08:22
--- NOTE | 2017-04-21 08:26 | PDOC ---
G I PROGRESS NOTE Subjective No complaints. BP better. Physical Exam Lungs clear. RRR Abdomen soft, not tender nor distended. Review of Relevant I have reviewed the following items gabo (where applicable) has been applied. Labs Laboratory Tests Test 04/19/17 09:50 04/19/17 15:46 04/19/17 16:20 04/20/17 10:55 Troponin I Quantitative < 0.017 ng/mL (0.000-0.055) < 0.017 ng/mL (0.000-0.055) Urine Opiates Screen Neg (NEG) Urine Methadone Screen Neg (NEG) Urine Barbiturates Neg (NEG) Urine Phencyclidine Screen Neg (NEG) Urine Amphetamine/Methamphetamine Neg (NEG) Urine Benzodiazepines Screen Neg (NEG) Urine Cocaine Screen Neg (NEG) Urine Cannabinoids Screen Neg (NEG) Urine Ethyl Alcohol Neg (NEG) Iron Level 128 ug/dL (65-175) Total Iron Binding Capacity 432 ug/dL (250-450) Iron Saturation 30 % (15-34) Hepatitis A IgM Antibody Negative (Negative) Hepatitis B Surface Antigen Negative (Negative) Hepatitis B Core IgM Antibody Negative (Negative) Hepatitis C Antibody <0.1 s/co ratio Laboratory Tests Test 04/20/17 10:55 Iron Level 128 ug/dL (65-175) Total Iron Binding Capacity 432 ug/dL (250-450) Iron Saturation 30 % (15-34) Hepatitis A IgM Antibody Negative (Negative) Hepatitis B Surface Antigen Negative (Negative) Hepatitis B Core IgM Antibody Negative (Negative) Hepatitis C Antibody <0.1 s/co ratio Serologies, iron studies normal. Medications Current Medications Nitroglycerin (Nitro-Bid Oint) 1 inch 1X ONCE TP Last administered on 02:52; Start 04/19/17 at 03:00; Stop 04/19/17 at 03:01; Status DC Labetalol HCl (Normodyne) 20 mg 1X ONCE IVP Last administered on 04/19/17 03 :34; Start 04/19/17 at 04:00; Stop 04/19/17 at 04:01; Status DC Nicardipine HCl 50 mg/Sodium Chloride 270 ml @ 0 mls/hr CONT PRN IV SEE I/O RECORD Last administered on 04/19/17 04:14; Start 04/19/17 at 03:45; Stop at 09:30; Status DC Ondansetron HCl (Zofran) 4 mg PRN Q8HRS PRN IV NAUSEA/VOMITING; Start at 04:00; Stop 04/20/17 at 03:59; Status DC Morphine Sulfate 2 mg PRN Q2HR PRN IV SEVERE PAIN; Start 04/19/17 at 04:00; Stop 04/20/17 at 03:59; Status DC Nicardipine HCl 50 mg/Sodium Chloride 270 ml @ 0 mls/hr CONT PRN IV SEE I/O RECORD; Start 04/19/17 at 04:00; Status UNV Isosorbide Mononitrate (Imdur) 60 mg DAILY PO Last administered on 04/20/17 09:01; Start 04/19/17 at 10:00; Stop 04/20/17 at 09:13; Status DC Hydralazine HCl (Apresoline) 50 mg TID PO Last administered on 04/21/17 08:02 ; Start 04/19/17 at 10:00 Amlodipine Besylate (Norvasc) 10 mg DAILY PO Last administered on 04/21/17 08 :02; Start 04/19/17 at 10:00 Clonidine HCl (Catapres) 0.2 mg PRN Q1HR PRN PO HYPERTENSION, SEE COMMENTS; Start 04/19/17 at 09:15 Losartan Potassium (Cozaar) 100 mg DAILY PO Last administered on 04/21/17 08: 02; Start 04/19/17 at 10:00 Hydrochlorothiazide (Microzide) 12.5 mg DAILY PO Last administered on 08:03; Start 04/19/17 at 10:00 Hydralazine HCl (Apresoline Inj) 10 mg PRN Q4HRS PRN IVP ELEVATED BP, SEE COMMENTS Last administered on 04/20/17 12:53; Start 04/19/17 at 09:15 Atorvastatin Calcium (Lipitor) 20 mg QHS PO Last administered on 04/20/17 20: 44; Start 04/19/17 at 21:00 Iohexol (Omnipaque 300 Mg/ml) 75 ml 1X ONCE IV Last administered on 10:15; Start 04/19/17 at 10:15; Stop 04/19/17 at 10:16; Status DC Info (Do NOT chart on this entry -- for MONITORING) 1 each PRN DAILY PRN MC SEE COMMENTS; Start 04/19/17 at 10:15; Stop 04/21/17 at 10:14 Acetaminophen (Tylenol) 650 mg PRN Q6HRS PRN PO MILD PAIN / TEMP Last administered on 04/20/17 11:11; Start 04/19/17 at 14:00 Acetaminophen/ Hydrocodone Bitart (Lortab 5/325) 1 tab PRN Q4HRS PRN PO MODERATE PAIN; Start 04/19/17 at 15:30 Acetaminophen/ Hydrocodone Bitart (Lortab 5/325) 2 tab PRN Q4HRS PRN PO SEVERE PAIN Last administered on 04/21/17 01:32; Start 04/19/17 at 15:30 Zolpidem Tartrate (Ambien) 5 mg PRN QHS PRN PO INSOMNIA, MAY REPEAT IN 1HR Last administered on 04/19/17 23:46; Start 04/19/17 at 21:30 Isosorbide Mononitrate (Imdur) 60 mg BID PO Last administered on 04/21/17 08: 03; Start 04/20/17 at 21:00 Alprazolam (Xanax) 0.5 mg PRN Q6HRS PRN PO ANXIETY / AGITATION Last administered on 04/21/17 08:01; Start 04/21/17 at 07:30 Active Scripts Active Cozaar (Losartan Potassium) 50 Mg Tablet 100 Mg PO DAILY 30 Days Hydralazine Hcl 50 Mg Tablet 50 Mg PO TID 30 Days Amlodipine Besylate 10 Mg Tablet 10 Mg PO DAILY 30 Days Proair Hfa Inhaler (Albuterol Sulfate) 8.5 Gm Hfa.aer.ad 1 Puff INH PRN Q6HRS PRN Reported Aspirin Ec (Aspirin) 81 Mg Tablet.dr 1 Tab PO DAILY Atorvastatin Calcium 40 Mg Tablet 1 Tab PO QHS Lamotrigine 25 Mg Tablet 2 Tab PO QHS Hydrochlorothiazide Tablet (Hydrochlorothiazide) 12.5 Mg Tablet 1 Tab PO DAILY Vitals/I & O Vital Sign - Last 24 Hours 04/20/17 04/20/17 04/20/17 04/20/17 09:00 09:00 09:00 09:01 Pulse 76 76 76 76 B/P (MAP) 189/76 189/76 189/76 189/76 04/20/17 04/20/17 04/20/17 04/20/17 11:00 12:00 12:51 12:53 Temp 97.6 97.6 Pulse 86 76 76 Resp 20 B/P (MAP) 201/75 (117) 190/66 (107) 190/66 190/66 Pulse Ox 98 O2 Delivery Room Air 04/20/17 04/20/17 04/20/17 04/20/17 15:00 19:25 19:45 20:01 Temp 97.9 97.4 97.9 97.4 Pulse 88 87 Resp 20 18 20 B/P (MAP) 149/70 (96) 139/86 (103) Pulse Ox 97 96 O2 Delivery Room Air Room Air Room Air Room Air 04/20/17 04/20/17 04/21/17 04/21/17 20:44 20:45 03:22 08:02 Temp 97.2 97.2 Pulse 77 77 77 Resp 20 B/P (MAP) 139/86 139/86 177/74 (108) 177/74 Pulse Ox 97 O2 Delivery Nasal Cannula O2 Flow Rate 2.0 04/21/17 04/21/17 04/21/17 08:02 08:02 08:03 Pulse 77 77 77 B/P (MAP) 177/74 177/74 177/74 Images Reviewed CTA; liver not particularly "fatty" on this. Problem List Problems Medical Problems: (1) Accelerated hypertension Status: Acute (2) Chest pain Status: Acute (3) Malignant hypertension Status: Acute Assessment Elevated LFT's, mild. No hint of meaningful issue. These may be non-specific or medication-related. If from statin, would not mandate stopping. Plan of Care: Continue current Tx, Mgmt Plan of Care Note Would monitor LFT's only at this point, checking q 6 months. If no change after 2-3 checks, would probably not monitor further. BLUE BLACKMON MD Apr 21, 2017 08:26
--- NOTE | 2017-04-21 09:22 | PDOC ---
CARDIO Progress Notes Date and Time Date of Service 04/21/17 Time of Evaluation 0920 Subjective Subjective: No Chest Pain, No shortness of breath, No Palpitations, Other Vitals Vitals Vital Signs Date Time Temp Pulse Resp B/P (MAP) Pulse Ox O2 Delivery O2 Flow Rate FiO2 04/21/17 09:11 96 Room Air 04/21/17 08:03 77 177/74 04/21/17 07:00 97.5 19 2.0 97.5 Weight Weight [ ] Laboratory Labs Laboratory Tests Test 04/20/17 10:55 Iron Level 128 ug/dL (65-175) Total Iron Binding Capacity 432 ug/dL (250-450) Iron Saturation 30 % (15-34) Hepatitis A IgM Antibody Negative (Negative) Hepatitis B Surface Antigen Negative (Negative) Hepatitis B Core IgM Antibody Negative (Negative) Hepatitis C Antibody <0.1 s/co ratio Physical Exam HEENT: Neck Supple W Full Motion Chest: Symmetric LUNGS: Clear to Auscultation Heart: S1S2, RRR Abdomen: Soft N/T Extremities: No Edema, No Calf Tenderness Neurology: alert, oriented, follow commands Assessment Assessment 1. Malignant HTN: much better controlled. Continue present medications. 2. Atypical CP: likely from above. Troponin series normal- AMI ruled out. Recent MPI without defects. 3. Hypertensive encephalopathy: better 4. HLP; on low-dose statin 5. Erythrocytosis; as per hemonc 6. MYLA: unable to afford CPAP. 7. Elevated LFT's; hold statin as warranted. as per GI Recommendations May discharge from a CV standpoint. Patient to check BP daily and report if consistently > 160 Follow up on an outpatient basis as scheduled. MOISE CHU APRN Apr 21, 2017 09:22
[2017-04-21 10:58] VITALS: BP 144/51
--- NOTE | 2017-04-21 12:31 | PDOC ---
PROGRESS NOTES Chief Complaint Chief Complaint Malignant HTN Chest Pain Polycythemia Elevated LFT's Erythrocytosis History of Present Illness History of Present Illness The patient is a pleasant 41-year-old relatively healthy male who presented to ED with chest pain, was noted to have pressures into the 240s upon admission. Was initially admitted to ICU, and subsequently transferred to cardiovascular care unit. Pt's labs indicate mild elevation of LFT's and substantial elevation of Hb/Hct. Patient's Hep serology was negative and iron studies were normal. He complained of occasional anxiety and was prescribed xanax. He was also prescribed hydrocodone for GARRETT. Patient is being followed by cardiology re: CP/HTN, GI re: elevated LFT's, and Heme-Onc re: polycythemia. Agree with specialists workup. He will probably get discharged today if ok with specialists. Vitals Vitals Vital Signs Date Time Temp Pulse Resp B/P (MAP) Pulse Ox O2 Delivery O2 Flow Rate FiO2 04/21/17 10:58 97.6 76 19 144/51 (82) 97 Nasal Cannula 2.0 97.6 Physical Exam General: Alert, Oriented X3, No acute distress Heart: Regular rate (SR), Normal S1, Normal S2, No murmurs Lungs: Clear Abdomen: Soft, No tenderness Extremities: No cyanosis, No edema Skin: No breakdown, No significant lesion Review of Systems Review of Systems fatigue and anxiety Assessment and Plan Assessmemt and Plan Problems Medical Problems: (1) Accelerated hypertension Status: Acute (2) Chest pain Status: Acute (3) Malignant hypertension Status: Acute Assessment: Malignant HTN Chest Pain Polycythemia Elevated LFT's Erythrocytosis Plan: Continue cardiac monitoring Xanax for occasional anxiety attacks Hydrocodone for GARRETT Possible discharge if ok with specialists Follow up with PCP in 1 week Continue home meds Problems: Comment Review of Relevant I have reviewed the following items gabo (where applicable) has been applied. Labs Laboratory Tests Test 04/19/17 15:46 04/19/17 16:20 04/20/17 10:55 Troponin I Quantitative < 0.017 ng/mL (0.000-0.055) Urine Opiates Screen Neg (NEG) Urine Methadone Screen Neg (NEG) Urine Barbiturates Neg (NEG) Urine Phencyclidine Screen Neg (NEG) Urine Amphetamine/Methamphetamine Neg (NEG) Urine Benzodiazepines Screen Neg (NEG) Urine Cocaine Screen Neg (NEG) Urine Cannabinoids Screen Neg (NEG) Urine Ethyl Alcohol Neg (NEG) Iron Level 128 ug/dL (65-175) Total Iron Binding Capacity 432 ug/dL (250-450) Iron Saturation 30 % (15-34) Hepatitis A IgM Antibody Negative (Negative) Hepatitis B Surface Antigen Negative (Negative) Hepatitis B Core IgM Antibody Negative (Negative) Hepatitis C Antibody <0.1 s/co ratio Medications Current Medications Nitroglycerin (Nitro-Bid Oint) 1 inch 1X ONCE TP Last administered on 02:52; Start 04/19/17 at 03:00; Stop 04/19/17 at 03:01; Status DC Labetalol HCl (Normodyne) 20 mg 1X ONCE IVP Last administered on 04/19/17 03 :34; Start 04/19/17 at 04:00; Stop 04/19/17 at 04:01; Status DC Nicardipine HCl 50 mg/Sodium Chloride 270 ml @ 0 mls/hr CONT PRN IV SEE I/O RECORD Last administered on 04/19/17 04:14; Start 04/19/17 at 03:45; Stop at 09:30; Status DC Ondansetron HCl (Zofran) 4 mg PRN Q8HRS PRN IV NAUSEA/VOMITING; Start at 04:00; Stop 04/20/17 at 03:59; Status DC Morphine Sulfate 2 mg PRN Q2HR PRN IV SEVERE PAIN; Start 04/19/17 at 04:00; Stop 04/20/17 at 03:59; Status DC Nicardipine HCl 50 mg/Sodium Chloride 270 ml @ 0 mls/hr CONT PRN IV SEE I/O RECORD; Start 04/19/17 at 04:00; Status UNV Isosorbide Mononitrate (Imdur) 60 mg DAILY PO Last administered on 04/20/17 09:01; Start 04/19/17 at 10:00; Stop 04/20/17 at 09:13; Status DC Hydralazine HCl (Apresoline) 50 mg TID PO Last administered on 04/21/17 08:02 ; Start 04/19/17 at 10:00 Amlodipine Besylate (Norvasc) 10 mg DAILY PO Last administered on 04/21/17 08 :02; Start 04/19/17 at 10:00 Clonidine HCl (Catapres) 0.2 mg PRN Q1HR PRN PO HYPERTENSION, SEE COMMENTS; Start 04/19/17 at 09:15 Losartan Potassium (Cozaar) 100 mg DAILY PO Last administered on 04/21/17 08: 02; Start 04/19/17 at 10:00 Hydrochlorothiazide (Microzide) 12.5 mg DAILY PO Last administered on 08:03; Start 04/19/17 at 10:00 Hydralazine HCl (Apresoline Inj) 10 mg PRN Q4HRS PRN IVP ELEVATED BP, SEE COMMENTS Last administered on 04/20/17 12:53; Start 04/19/17 at 09:15 Atorvastatin Calcium (Lipitor) 20 mg QHS PO Last administered on 04/20/17 20: 44; Start 04/19/17 at 21:00 Iohexol (Omnipaque 300 Mg/ml) 75 ml 1X ONCE IV Last administered on 10:15; Start 04/19/17 at 10:15; Stop 04/19/17 at 10:16; Status DC Info (Do NOT chart on this entry -- for MONITORING) 1 each PRN DAILY PRN MC SEE COMMENTS; Start 04/19/17 at 10:15; Stop 04/21/17 at 10:14; Status DC Acetaminophen (Tylenol) 650 mg PRN Q6HRS PRN PO MILD PAIN / TEMP Last administered on 04/20/17 11:11; Start 04/19/17 at 14:00 Acetaminophen/ Hydrocodone Bitart (Lortab 5/325) 1 tab PRN Q4HRS PRN PO MODERATE PAIN; Start 04/19/17 at 15:30 Acetaminophen/ Hydrocodone Bitart (Lortab 5/325) 2 tab PRN Q4HRS PRN PO SEVERE PAIN Last administered on 04/21/17 09:11; Start 04/19/17 at 15:30 Zolpidem Tartrate (Ambien) 5 mg PRN QHS PRN PO INSOMNIA, MAY REPEAT IN 1HR Last administered on 04/19/17 23:46; Start 04/19/17 at 21:30 Isosorbide Mononitrate (Imdur) 60 mg BID PO Last administered on 04/21/17 08: 03; Start 04/20/17 at 21:00 Alprazolam (Xanax) 0.5 mg PRN Q6HRS PRN PO ANXIETY / AGITATION Last administered on 04/21/17 08:01; Start 04/21/17 at 07:30 Active Scripts Active Cozaar (Losartan Potassium) 50 Mg Tablet 100 Mg PO DAILY 30 Days Hydralazine Hcl 50 Mg Tablet 50 Mg PO TID 30 Days Amlodipine Besylate 10 Mg Tablet 10 Mg PO DAILY 30 Days Proair Hfa Inhaler (Albuterol Sulfate) 8.5 Gm Hfa.aer.ad 1 Puff INH PRN Q6HRS PRN Reported Aspirin Ec (Aspirin) 81 Mg Tablet.dr 1 Tab PO DAILY Atorvastatin Calcium 40 Mg Tablet 1 Tab PO QHS Lamotrigine 25 Mg Tablet 2 Tab PO QHS Hydrochlorothiazide Tablet (Hydrochlorothiazide) 12.5 Mg Tablet 1 Tab PO DAILY Vitals/I & O Vital Sign - Last 24 Hours 04/20/17 04/20/17 04/20/17 04/20/17 12:51 12:53 15:00 19:25 Temp 97.9 97.9 Pulse 76 76 88 Resp 20 18 B/P (MAP) 190/66 190/66 149/70 (96) Pulse Ox 97 O2 Delivery Room Air Room Air 04/20/17 04/20/17 04/20/17 04/20/17 19:45 20:01 20:44 20:45 Temp 97.4 97.4 Pulse 87 77 77 Resp 20 B/P (MAP) 139/86 (103) 139/86 139/86 Pulse Ox 96 O2 Delivery Room Air Room Air 04/21/17 04/21/17 04/21/17 04/21/17 03:22 07:00 08:00 08:02 Temp 97.2 97.5 97.2 97.5 Pulse 75 77 Resp 20 19 B/P (MAP) 177/74 (108) 163/80 (107) 177/74 Pulse Ox 97 96 O2 Delivery Nasal Cannula Nasal Cannula Room Air O2 Flow Rate 2.0 2.0 04/21/17 04/21/17 04/21/17 04/21/17 08:02 08:02 08:03 09:11 Pulse 77 77 77 B/P (MAP) 177/74 177/74 177/74 Pulse Ox 96 O2 Delivery Room Air 04/21/17 04/21/17 10:17 10:58 Temp 97.6 97.6 Pulse 76 Resp 19 B/P (MAP) 144/51 (82) Pulse Ox 96 97 O2 Delivery Room Air Nasal Cannula O2 Flow Rate 2.0 2.0 Intake and Output 04/21/17 04/21/17 04/22/17 15:00 23:00 07:00 Intake Total 250 ml Balance 250 ml AYDE RENTERIA III DO Apr 21, 2017 12:31
[2017-04-21] MEDS ORDERED: LOSA100T6 PO (13:00)
[2017-04-21] MEDS ORDERED: ISOS60TA2 PO (13:01)
[2017-04-21 14:27] VITALS: BP 144/51
--- NOTE | 2017-04-22 12:01 | DS ---
DATE OF DISCHARGE: 04/21/2017 ADMISSION DIAGNOSIS: Malignant hypertension. DISCHARGE DIAGNOSES: Resolving malignant hypertension and atypical chest pain. HOSPITAL COURSE: The patient is a pleasant 41-year-old male presented with malignant hypertension into the 200s. Interestingly, he had a high hemoglobin close to 18. I did consult Dr. Curry and was felt that his erythrocytosis was secondary to his uncontrolled hypertension. We gave him p.r.n. blood pressure medications and got his blood pressures under control. He is at his baseline. We plan to discharge with p.o. blood pressure medications. DISPOSITION: Home. ACTIVITY: As tolerated. DIET: Low sodium. MEDICATIONS: Please see the MRAD. TOTAL TIME ON DISCHARGE: Thirty-three minutes. AYDE RENTERIA DO DR: BLANCO/kylie JOB#: [id number] / [id number]
== END 2017-04-21 14:51 | disposition home or self-care (01) | DRG 683 ==
LOC: ER 02:22 → 1 WEST ICU 03:42 → 2 SOUTH 19:53
PROVIDERS: ADMIT Internal Medicine; ATTEND Internal Medicine
DX: I12.9 Hypertensive chronic kidney disease with stage 1 through stage 4 chronic kidney disease, or unspecified chronic kidney disease (principal); I67.4 Hypertensive encephalopathy; N18.3 Chronic kidney disease, stage 3 (moderate); D75.1 Secondary polycythemia; R07.89 Other chest pain; E78.00 Pure hypercholesterolemia, unspecified; E78.5 Hyperlipidemia, unspecified; F17.210 Nicotine dependence, cigarettes, uncomplicated; F41.9 Anxiety disorder, unspecified; G47.33 Obstructive sleep apnea (adult) (pediatric); I51.7 Cardiomegaly; K21.9 Gastro-esophageal reflux disease without esophagitis; Z80.0 Family history of malignant neoplasm of digestive organs; Z82.49 Family history of ischemic heart disease and other diseases of the circulatory system; Z83.3 Family history of diabetes mellitus; Z86.73 Personal history of transient ischemic attack (TIA), and cerebral infarction without residual deficits; Z91.19 Patient's noncompliance with other medical treatment and regimen
CPT/HCPCS: 36415; 71010; 71275; 74174; 80053; 80074; 80307; 81270; 82550; 82553; 82668; 83540; 83550; 83690; 83880; 84484; 85025; 85610; 87641; 93005; 96365; 96375; 99406; J0360; J3490; J7050; Q9967; 99291-25; G0479; J7030

== ENCOUNTER 2017-05-27 05:37 | Emergency (ER) | payer OTHER ==
[~2017-05-27] VITALS: Ht 180.3 cm; Wt 111.1 kg
[~2017-05-27 05:37] MED LIST changes: +ATOR40TA59 PO; +HYDR12.58 PO; +ISOS60TA2 PO; +LAMO25TA PO; +LOSA100T6 PO
--- NOTE | 2017-05-27 05:53 | PHYS DOC ---
Past Medical History Past Medical History: High Cholesterol, Hypertension, TIA Additional Past Medical Histor: ECHO 02/23/17 normal; Stress test 02/18 negative Past Surgical History: Tonsillectomy, Other Additional Past Surgical Histo: HAMSTRING Smoking: Quit Less Than 1 Year Alcohol Use: Occasionally Drug Use: None Adult General Chief Complaint Chief Complaint: LOWER EXT PAIN HPI HPI Patient is a 42 year old male who presents with right leg swelling and pain. Started yesterday. No recent travel. He was admitted here April 19, 2017 where I saw him in the emergency department. At that time he had malignant hypertension and chest pain. He was admitted. He states he stopped tobacco use. He has been compliant with his medications. The left leg is not swollen however. No shortness of breath and no chest pain this morning. No fever sore throat cough or cold symptoms. Review of Systems Review of Systems Constitutional: Denies fever or chills Eyes: Denies change in visual acuity, redness, or eye pain HENT: Denies nasal congestion or sore throat Respiratory: Denies cough or shortness of breath Cardiovascular: No chest pain GI: Denies abdominal pain, nausea, vomiting, bloody stools or diarrhea : Denies dysuria or hematuria Musculoskeletal: Denies back pain. Right leg swelling and pain. Integument: Denies rash or skin lesions Neurologic: Denies headache, focal weakness or sensory changes All other systems were reviewed and found to be within normal limits, except as documented in this note. Current Medications Current Medications Current Medications Medications (Trade) Dose Ordered Sig/Isatu Start Time Stop Time Status Last Admin Dose Admin Clindamycin HCl (Cleocin) 300 mg 1X ONCE 05/27/17 07:00 05/27/17 07:01 Allergies Allergies Allergies Coded Allergies Type Severity Reaction Last Updated Verified No Known Drug Allergies 02/25/16 No Physical Exam Physical Exam Constitutional: Well developed, well nourished, no acute distress, non-toxic appearance. HENT: Normocephalic, atraumatic, bilateral external ears normal, oropharynx moist, no oral exudates, nose normal. Eyes: PERRLA, EOMI, conjunctiva normal, no discharge. Neck: Normal range of motion, no tenderness, supple, no stridor. Cardiovascular:Heart rate regular rhythm, no murmur Lungs & Thorax: Bilateral breath sounds clear to auscultation Abdomen: Bowel sounds normal, soft, no tenderness, no masses, no pulsatile masses. Skin: Warm, dry, no erythema, no rash. Back: No tenderness, no CVA tenderness. Extremities: No tenderness, no cyanosis, no clubbing, ROM intact,right lower leg painful and swollen. No mass or fluctuance palpable. No overlying skin changes or wounds. NVI distally. Left lower leg without swelling or pain. Neurologic: Alert and oriented X 3, normal motor function, normal sensory function, no focal deficits noted. Psychologic: Affect normal, judgement normal, mood normal. Current Patient Data Vital Signs Vital Signs Date Time Temp Pulse Resp B/P (MAP) Pulse Ox O2 Delivery O2 Flow Rate FiO2 05/27/17 05:46 97.7 67 18 157/95 (115) 99 Room Air 97.7 Radiology/Procedures Radiology/Procedures [facility] [address] [place] [address] IMAGING REPORT Signed PATIENT: RADHA DESHPANDE ACCOUNT: [id number] : 1975 LOCATION: ER AGE: 42 SEX: M EXAM STATUS: REG ER ORD. PHYSICIAN: ALEXI ANGULO MD REASON: swollen and painful; r/o DVT PROCEDURE: VENOUS LOWER EXTREMITY RIGHT Right lower extremity venous doppler: Reason for examination: Right lower extremity pain and swelling for one day with a knot in the inferior lateral lower leg. The right lower extremity venous system was evaluated from the common femoral and greater saphenous veins distally to the calf veins with grayscale imaging, color-flow imaging and spectral analysis. There is normal blood flow. There is normal response of the venous system to compression and augmentation. There is no deep venous thrombosis evident. There is however a 2.4 x 1.3 x 0.7 cm nonvascular superficial complex fluid collection in the area of clinical concern laterally and inferiorly in the right lower leg and a small abscess cannot be excluded. IMPRESSION: No deep venous thrombosis in the right lower extremity. Small nonvascular complex fluid collection measuring 2.4 x 1.3 x 0.7 cm in size in the area of clinical concern lateral and inferiorly in the right lower leg. A small abscess cannot be excluded. Electronically signed by: Ryan Toro MD (05/27/2017 6:38 AM) [facility] DICTATED and SIGNED BY: RYAN TORO MD DATE: 05/27/17 0634 CC: ALEXI ANGULO MD; KAYLA STANTON MD ~ Course & Med Decision Making Course & Med Decision Making Evaluated patient. Ultrasound ordered to r/o DVT. At 0620 am US done with verbal report negative for DVT. Small cyst on right lower leg. No abscess palpable for visible. Warm packs; Clindamycin po. Home to follow up with PCP. I have spoken with the patient and/or caregivers. I have explained the patient' s condition, diagnosis and treatment plan based on the information available to me at this time. I have answered the patient's and/or caregiver's questions and addressed any concerns. The patient and/or caregivers have as good an understanding of the patient's diagnosis, condition and treatment plan as can be expected at this point. The patient's condition is stable and appropriate for discharge from the emergency department. The patient will pursue further outpatient evaluation with the primary care physician or other designated or consulting physician as outlined in the discharge instructions. The patient and/or caregivers are agreeable to this plan of care and follow-up instructions have been explained in detail. The patient and/or caregivers have received these instructions in written format and have expressed an understanding of the discharge instructions. The patient and/or caregivers are aware that any significant change in condition or worsening of symptoms should prompt an immediate return to this or the closest emergency department or a call to 911. Dragon Disclaimer Dragon Disclaimer This electronic medical record was generated, in whole or in part, using a voice recognition dictation system. Departure Departure Impression: Primary Impression: Right leg pain Additional Impression: Cyst Disposition: HOME, SELF-CARE Condition: STABLE Referrals: NO PCP (PCP) Patient Instructions: Cellulitis Scripts Clindamycin Hcl (CLINDAMYCIN HCL) 300 Mg Capsule 1 CAP PO TID, #21 CAP Prov: ALEXI ANGULO MD 05/27/17 Problem Qualifiers ALEXI ANGULO MD May 27, 2017 05:53
[2017-05-27] MEDS ORDERED: CLIN300C8 PO (06:27)
--- NOTE | 2017-05-27 06:42 | RAD ---
Right lower extremity venous doppler: Reason for examination: Right lower extremity pain and swelling for one day with a knot in the inferior lateral lower leg. The right lower extremity venous system was evaluated from the common femoral and greater saphenous veins distally to the calf veins with grayscale imaging, color-flow imaging and spectral analysis. There is normal blood flow. There is normal response of the venous system to compression and augmentation. There is no deep venous thrombosis evident. There is however a 2.4 x 1.3 x 0.7 cm nonvascular superficial complex fluid collection in the area of clinical concern laterally and inferiorly in the right lower leg and a small abscess cannot be excluded. IMPRESSION: No deep venous thrombosis in the right lower extremity. Small nonvascular complex fluid collection measuring 2.4 x 1.3 x 0.7 cm in size in the area of clinical concern lateral and inferiorly in the right lower leg. A small abscess cannot be excluded. Electronically signed by: Steffany Mulligan MD (05/27/2017 6:38 AM) [facility]
[2017-05-27 06:53] VITALS: BP 177/75
[2017-05-27] MEDS ORDERED: CLINDAMYCIN HCL 150 MG CAPSULE. PO ONE (07:00)
== END 2017-05-27 06:50 | disposition home or self-care (01) ==
LOC: ER 05:37
DX: M79.604 Pain in right leg (principal); L72.8 Other follicular cysts of the skin and subcutaneous tissue; M79.89 Other specified soft tissue disorders; E78.00 Pure hypercholesterolemia, unspecified; I10 Essential (primary) hypertension; Z86.73 Personal history of transient ischemic attack (TIA), and cerebral infarction without residual deficits; Z87.891 Personal history of nicotine dependence
CPT/HCPCS: 93971; 99284-25

== ENCOUNTER 2017-09-10 09:17 | Outpatient (CLI) | payer OTHER ==
[2017-09-10 09:43] LABS: HEMATOCRIT 50.9 % (39.0-53.0); HEMOGLOBIN 17.1 g/dL (13.0-17.5); MEAN CORPUSCULAR HEMOGLOBIN 31 pg (25-35); MEAN CORPUSCULAR HGB CONC 34 g/dL (31-37); MEAN CORPUSCULAR VOLUME 91 fL (79-100); PLATELET COUNT 297 x10^3/uL (140-400); RED BLOOD COUNT 5.61 x10^6/uL (4.30-5.70); RED CELL DISTRIBUTION WIDTH 13.9 % (11.5-14.5); WHITE BLOOD COUNT 6.9 x10^3/uL (4.0-11.0)
[2017-09-10 09:49] LABS: ANION GAP 14 (6-14); BLOOD UREA NITROGEN 12 mg/dL (8-26); CALCIUM 8.9 mg/dL (8.5-10.1); CARBON DIOXIDE 22 mmol/L (21-32); CHLORIDE 105 mmol/L (98-107); CREATININE 1.1 mg/dL (0.7-1.3); GLUCOSE 113 mg/dL (70-99); POTASSIUM 3.7 mmol/L (3.5-5.1); SODIUM 141 mmol/L (136-145)
[2017-09-10 09:56] LABS: PARTIAL THROMBOPLASTIN TIME 23 SEC (24-38); PROTHROMBIN TIME PATIENT 12.5 SEC (11.7-14.0)
[2017-09-10] MEDS ORDERED: IOHEXOL 300 MG/ML 100ML VIAL. (11:21)
[2017-09-10] MEDS ORDERED: LIDOCAINE 2% 20 ML VIAL. ×2 (11:21→11:29)
[2017-09-10] MEDS ORDERED: fentaNYL PF VIAL 100 MCG/2 ML VIAL (11:33)
[2017-09-10] MEDS ORDERED: MIDAZOLAM HCL/PF 2 MG/2 ML VIAL. (11:33)
[2017-09-10] MEDS: fentaNYL PF VIAL 100 MCG/2 ML VIAL IV (11:59)
[2017-09-10] MEDS: IODIXANOL 320 MG/ML 100 ML VIAL. IART (11:59)
[2017-09-10] MEDS: LIDOCAINE 2% 20 ML VIAL. IJ (12:00)
[2017-09-10] MEDS ORDERED: CONTRAST GIVEN MC (12:00)
[2017-09-10] MEDS: MIDAZOLAM HCL/PF 2 MG/2 ML VIAL. IV (12:01)
[2017-09-10] MEDS ORDERED: IV 1/2 NORMAL SALINE 1,000 ML IV (13:30)
== END 2017-09-10 15:59 | disposition home or self-care (01) ==
LOC: CCL 09:17
DX: I10 Essential (primary) hypertension (principal); E78.00 Pure hypercholesterolemia, unspecified; G47.39 Other sleep apnea; M19.90 Unspecified osteoarthritis, unspecified site; F41.9 Anxiety disorder, unspecified; F32.9 Major depressive disorder, single episode, unspecified; F17.210 Nicotine dependence, cigarettes, uncomplicated; Z82.49 Family history of ischemic heart disease and other diseases of the circulatory system; Z83.3 Family history of diabetes mellitus; Z79.01 Long term (current) use of anticoagulants; Z98.890 Other specified postprocedural states; Z86.73 Personal history of transient ischemic attack (TIA), and cerebral infarction without residual deficits; Z87.442 Personal history of urinary calculi
CPT/HCPCS: 36252; 36415; 80048; 85027; 85610; 85730; 99152; C1769; C1771; C1887; C1892; G0269; J1644; J2250; J3010

== ENCOUNTER → 2017-09-13 | Outpatient (CLI) | payer OTHER | END | disposition home or self-care (01) | LOC: US 13:13 | DX: S31.109A Unspecified open wound of abdominal wall, unspecified quadrant without penetration into peritoneal cavity, initial encounter (principal); X58.XXXA Exposure to other specified factors, initial encounter; Y93.89 Activity, other specified; Y92.89 Other specified places as the place of occurrence of the external cause; Y99.8 Other external cause status | CPT/HCPCS: 93926 ==

== ENCOUNTER → 2018-02-17 | Outpatient (CLI) | payer OTHER ==
[2017-09-10 14:00] VITALS: BP 118/60
[~2018-02-17] MED LIST changes: +CLIN300C8 PO; -LABE200T2 PO; +LABE200T4 PO; +LISI-130 PO; -LISI40TA PO
--- NOTE | 2018-02-17 13:27 | KCIC ---
Left Lower Extremity Venous Doppler Ultrasound Indication: Left lower extremity edema. Comparison: None. Procedure: Color Doppler, spectral Doppler, and grayscale images with and without compression are obtained in the area of the common femoral vein, superficial femoral vein - femoral vein junction, main femoral vein (superficial femoral vein) and popliteal vein. Veins of the proximal calf are suboptimally visualized. Findings: There is normal duplex flow, color flow and compressibility of all visualized vein segments. There is no evidence of deep venous thrombosis. Impression: No evidence of left lower extremity deep venous thrombosis. Electronically signed by: Geoffrey Meza MD (02/17/2018 1:23 PM) [place] [id number]
== END | disposition home or self-care (01) ==
LOC: KCIC US 09:59
PROVIDERS: ATTEND Family Medicine
DX: R60.0 Localized edema (principal); I12.9 Hypertensive chronic kidney disease with stage 1 through stage 4 chronic kidney disease, or unspecified chronic kidney disease; N18.3 Chronic kidney disease, stage 3 (moderate); E78.00 Pure hypercholesterolemia, unspecified; K21.9 Gastro-esophageal reflux disease without esophagitis; Z87.891 Personal history of nicotine dependence
CPT/HCPCS: 93971

== ENCOUNTER 2018-03-07 08:20 | Emergency (ER) | payer SELFPAY ==
[~2018-03-07] VITALS: Ht 180.3 cm; Wt 113.4 kg
[~2018-03-07 08:20] MED LIST changes: -AMLO10TA2 PO; +AMLO10TA6 PO; -AMLO5TAB2 PO; +AMLO5TAB7 PO; -LOSA100T6 PO; +LOSA100T7 PO
[2018-03-07] MEDS ORDERED: ALPRAZolam 0.5 MG TABLET PO ONE (08:45)
[2018-03-07 09:00] LABS: BASO % 1 % (0-3); EOS # 0.1 x10^3/uL (0.0-0.7); EOS % 2 % (0-3); HEMATOCRIT 51.4 % (39.0-53.0); HEMOGLOBIN 17.9 g/dL (13.0-17.5); LYMPH # 1.6 x10^3/uL (1.0-4.8); LYMPH % 16 % (24-48); MEAN CORPUSCULAR HEMOGLOBIN 32 pg (25-35); MEAN CORPUSCULAR HGB CONC 35 g/dL (31-37); MEAN CORPUSCULAR VOLUME 91 fL (79-100); MONO # 0.7 x10^3/uL (0.0-1.1); MONO % 7 % (0-9); NEUT # 7.5 x10^3uL (1.8-7.7); NEUT % 75 % (31-73); PLATELET COUNT 275 x10^3/uL (140-400); RED BLOOD COUNT 5.63 x10^6/uL (4.30-5.70); RED CELL DISTRIBUTION WIDTH 13.8 % (11.5-14.5); WHITE BLOOD COUNT 10.1 x10^3/uL (4.0-11.0)
[2018-03-07 09:08] LABS: CALCIUM 8.7 mg/dL (8.5-10.1); CREATININE 1.5 mg/dL (0.7-1.3); GFR 50.8; POTASSIUM 3.6 mmol/L (3.5-5.1)
[2018-03-07 09:13] LABS: ALBUMIN/GLOBULIN RATIO 1.2 (1.0-1.7); TOTAL BILIRUBIN 0.6 mg/dL (0.2-1.0); TOTAL PROTEIN 7.4 g/dL (6.4-8.2)
--- NOTE | 2018-03-07 09:18 | EKG ---
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
--- NOTE | 2018-03-07 09:46 | RAD ---
PA and lateral chest radiograph. History: Hypertension. Comparison: April 19, 2017. Findings: Cardiac silhouette is borderline enlarged. No pneumothorax or pleural effusion is identified. Pulmonary vascularity appears accentuated. Mild right basilar density is seen. Impression: 1. Mild right basilar density, could be atelectasis versus developing pneumonia versus asymmetric pulmonary edema. 2. Pulmonary vascularity appears accentuated, may indicate pulmonary vascular congestion. Electronically signed by: Geoffrey Meza MD (03/07/2018 9:43 AM) [facility]
--- NOTE | 2018-03-07 09:49 | PHYS DOC ---
Past Medical History Past Medical History: Anxiety, Hypertension Additional Past Medical Histor: Rapid heart rate Past Surgical History: Other Alcohol Use: Occasionally Drug Use: None Adult General Chief Complaint Chief Complaint: HYPERTENSION HPI HPI Patient is a 42 year old male who presents with a panic attack and hypertension. The patient states when he woke up this morning he felt short of breath and very panicked. He states that when this occurs he usually gets very hypertensive. He states that his elevated blood pressure scared him. He does have a smell of alcohol about him. He states that he has been drinking over the weekend. Review of Systems Review of Systems Constitutional: Denies fever or chills [] Eyes: Denies change in visual acuity, redness, or eye pain [] HENT: Denies nasal congestion or sore throat [] Respiratory: Denies cough or shortness of breath [] Cardiovascular: No additional information not addressed in HPI [] GI: Denies abdominal pain, nausea, vomiting, bloody stools or diarrhea [] : Denies dysuria or hematuria [] Musculoskeletal: Denies back pain or joint pain [] Integument: Denies rash or skin lesions [] Neurologic: Denies headache, focal weakness or sensory changes [] Endocrine: Denies polyuria or polydipsia [] All other systems were reviewed and found to be within normal limits, except as documented in this note. Current Medications Current Medications Current Medications Medications (Trade) Dose Ordered Sig/Isatu Start Time Stop Time Status Last Admin Dose Admin Alprazolam (Xanax) 0.5 mg 1X ONCE 03/07/18 08:45 03/07/18 08:46 DC 03/07/18 09:00 0.5 MG Sodium Chloride 1,000 ml @ 1,000 mls/hr 1X ONCE 03/07/18 10:00 03/07/18 10:56 DC 03/07/18 10:19 1,000 MLS/HR Allergies Allergies Allergies Coded Allergies Type Severity Reaction Last Updated Verified No Known Drug Allergies 03/07/18 No Physical Exam Physical Exam Constitutional: Well developed, well nourished, no acute distress, non-toxic appearance. [] HENT: Normocephalic, atraumatic, bilateral external ears normal, oropharynx moist, no oral exudates, nose normal. [] Eyes: PERRLA, EOMI, conjunctiva normal, no discharge. [] Neck: Normal range of motion, no tenderness, supple, no stridor. [] Cardiovascular:Heart rate regular rhythm, no murmur [] Lungs & Thorax: Bilateral breath sounds clear to auscultation [] Abdomen: Bowel sounds normal, soft, no tenderness, no masses, no pulsatile masses. [] Skin: Warm, dry, no erythema, no rash. [] Back: No tenderness, no CVA tenderness. [] Extremities: No tenderness, no cyanosis, no clubbing, ROM intact, no edema. [] Neurologic: Alert and oriented X 3, normal motor function, normal sensory function, no focal deficits noted. [] Psychologic: Patient is jittery and anxious Current Patient Data Vital Signs Vital Signs Date Time Temp Pulse Resp B/P (MAP) Pulse Ox O2 Delivery O2 Flow Rate FiO2 03/07/18 10:30 90 18 97 03/07/18 10:12 98.4 141/72 (95) Room Air 98.4 Lab Values Laboratory Tests Test 03/07/18 08:50 03/07/18 09:45 White Blood Count 10.1 x10^3/uL (4.0-11.0) Red Blood Count 5.63 x10^6/uL (4.30-5.70) Hemoglobin 17.9 g/dL (13.0-17.5) H Hematocrit 51.4 % (39.0-53.0) Mean Corpuscular Volume 91 fL (79-100) Mean Corpuscular Hemoglobin 32 pg (25-35) Mean Corpuscular Hemoglobin Concent 35 g/dL (31-37) Red Cell Distribution Width 13.8 % (11.5-14.5) Platelet Count 275 x10^3/uL (140-400) Neutrophils (%) (Auto) 75 % (31-73) H Lymphocytes (%) (Auto) 16 % (24-48) L Monocytes (%) (Auto) 7 % (0-9) Eosinophils (%) (Auto) 2 % (0-3) Basophils (%) (Auto) 1 % (0-3) Neutrophils # (Auto) 7.5 x10^3uL (1.8-7.7) Lymphocytes # (Auto) 1.6 x10^3/uL (1.0-4.8) Monocytes # (Auto) 0.7 x10^3/uL (0.0-1.1) Eosinophils # (Auto) 0.1 x10^3/uL (0.0-0.7) Basophils # (Auto) 0.0 x10^3/uL (0.0-0.2) Sodium Level 139 mmol/L (136-145) Potassium Level 3.6 mmol/L (3.5-5.1) Chloride Level 102 mmol/L (98-107) Carbon Dioxide Level 23 mmol/L (21-32) Anion Gap 14 (6-14) Blood Urea Nitrogen 21 mg/dL (8-26) Creatinine 1.5 mg/dL (0.7-1.3) H Estimated GFR (Cockcroft-Gault) 50.8 BUN/Creatinine Ratio 14 (6-20) Glucose Level 137 mg/dL (70-99) H Calcium Level 8.7 mg/dL (8.5-10.1) Total Bilirubin 0.6 mg/dL (0.2-1.0) Aspartate Amino Transferase (AST) 71 U/L (15-37) H Alanine Aminotransferase (ALT) 89 U/L (16-63) H Alkaline Phosphatase 74 U/L (46-116) Total Protein 7.4 g/dL (6.4-8.2) Albumin 4.0 g/dL (3.4-5.0) Albumin/Globulin Ratio 1.2 (1.0-1.7) Urine Collection Type Unknown Urine Color Yellow Urine Clarity Clear Urine pH 6.0 Urine Specific [place] >=1.030 Urine Protein Negative mg/dL (NEG-TRACE) Urine Glucose (UA) Negative mg/dL (NEG) Urine Ketones (Stick) Trace mg/dL (NEG) Urine Blood Negative (NEG) Urine Nitrite Negative (NEG) Urine Bilirubin Negative (NEG) Urine Urobilinogen Dipstick 0.2 mg/dL (0.2 mg/dL) Urine Leukocyte Esterase Negative (NEG) Urine RBC Occ /HPF (0-2) Urine WBC 1-4 /HPF (0-4) Urine Squamous Epithelial Cells Occ /LPF Urine Bacteria Few /HPF (0-FEW) Urine Mucus Marked /LPF Urine Opiates Screen Neg (NEG) Urine Methadone Screen Neg (NEG) Urine Barbiturates Neg (NEG) Urine Phencyclidine Screen Neg (NEG) Urine Amphetamine/Methamphetamine Pos (NEG) Urine Benzodiazepines Screen Neg (NEG) Urine Cocaine Screen Pos (NEG) Urine Cannabinoids Screen Neg (NEG) Urine Ethyl Alcohol Pos (NEG) Laboratory Tests 03/07/18 08:50 Laboratory Tests 03/07/18 08:50 EKG EKG [] Radiology/Procedures Radiology/Procedures []PATIENT: RADHA DESHPANDEACCOUNT: [id number]#: [id number] : 1975 LOCATION: ER AGE: 42 SEX: M EXAM STATUS: REG ER ORD. PHYSICIAN: ABDON SPENCER APRN REASON: hypertension PROCEDURE: CHEST PA & LATERAL PA and lateral chest radiograph. History: Hypertension. Comparison: April 19, 2017. Findings: Cardiac silhouette is borderline enlarged. No pneumothorax or pleural effusion is identified. Pulmonary vascularity appears accentuated. Mild right basilar density is seen. Impression: 1. Mild right basilar density, could be atelectasis versus developing pneumonia versus asymmetric pulmonary edema. 2. Pulmonary vascularity appears accentuated, may indicate pulmonary vascular congestion. Electronically signed by: Geoffrey Elaine MD (03/07/2018 9:43 AM) [place] DICTATED and SIGNED BY: GEOFFREY ELAINE MD DATE: 03/07/18940 Course & Med Decision Making Course & Med Decision Making Pertinent Labs and Imaging studies reviewed. (See chart for details) []The patient was given a dose of Xanax in the emergency department with resolution of his anxiety. The patient and I had a conversation about his positive recreational drug use. I did let him know that both methamphetamine and cocaine increased anxiety and blood pressure extensively. Alcohol also increases anxiety. When you combine these medications it worsens the affect. He was notified that he also is developing indications that his kidneys might be getting damaged as well as having some elevated liver enzymes. He is instructed to follow-up with his primary care provider for retesting of these labs. He is in agreement with this plan. Dragon Disclaimer Dragon Disclaimer This electronic medical record was generated, in whole or in part, using a voice recognition dictation system. Departure Departure Impression: Primary Impression: Pneumonia Additional Impressions: Methamphetamine abuse Cocaine abuse Alcohol abuse Disposition: HOME, SELF-CARE Condition: STABLE Referrals: KAYLA STANTON MD (PCP) Patient Instructions: Alcohol and Drug Addiction, Finding Treatment, Drug Abuse and Addiction-SportsMed, Pneumonia, Adult Additional Instructions: The recreational drugs you have been using cause elevation in blood pressure as well as anxiety. Refrain from using these chemicals in the future. If you need help with substance abuse you may follow-up with the [facility] or return to the emergency department. Scripts Azithromycin (ZITHROMAX) 250 Mg Tablet 1 PKG PO UD, #1 PKG Prov: ABDON SPENCER APRN 03/07/18 Problem Qualifiers ABDON SPENCER APRN Mar 07, 2018 09:49
[2018-03-07 09:59] LABS: BILIRUBIN,URINE NEGATIVE (NEG); CLARITY,URINE CLEAR; COLOR,URINE YELLOW; NITRITE,URINE NEGATIVE (NEG); PROTEIN,URINE NEGATIVE (NEG-TRACE); UROBILINOGEN,URINE 0.2 mg/dL (0.2 mg/dL)
[2018-03-07] MEDS ORDERED: IV NORMAL SALINE 1000ML BAG 1,000 ML IV ONE (10:00)
[2018-03-07 10:05] LABS: BARBITURATES NEG (NEG); BENZODIAZEPINES NEG (NEG); CANNABINOIDS NEG (NEG); COCAINE POS (NEG); METHADONE NEG (NEG); OPIATES NEG (NEG); PHENCYCLIDINE NEG (NEG)
[2018-03-07 10:11] LABS: AMPHETAMINE/METHAMPHETAMINE POS (NEG)
[2018-03-07 10:16] LABS: SQUAMOUS EPITHELIAL CELL,UR OCC /LPF
[2018-03-07 10:17] LABS: BACTERIA,URINE FEW /HPF (0-FEW); RBC,URINE OCC /HPF (0-2)
[2018-03-07 10:30] VITALS: BP 139/84
[2018-03-07] MEDS ORDERED: AZIT250T PO (10:52)
== END 2018-03-07 10:46 | disposition home or self-care (01) ==
LOC: MERGE 08:20 → ER 08:20
DX: F10.10 Alcohol abuse, uncomplicated (principal); F14.10 Cocaine abuse, uncomplicated; F15.10 Other stimulant abuse, uncomplicated; F41.0 Panic disorder [episodic paroxysmal anxiety]; I10 Essential (primary) hypertension; J18.9 Pneumonia, unspecified organism; Y90.9 Presence of alcohol in blood, level not specified
CPT/HCPCS: 36415; 71046; 80053; 80307; 81001; 85025; 93005; 99285; J7030; G0479

== ENCOUNTER 2018-06-20 12:13 | Emergency (ER) | payer OTHER ==
[~2018-06-20] VITALS: Ht 182.9 cm; Wt 120.2 kg
[~2018-06-20 12:13] MED LIST changes: +AZIT250T PO; +CARV6.2511 PO; -CARV6.252 PO; -HYDR-2758 PO; +HYDR-2761 PO; +LOSA-73 PO; +LOSA100T14 PO; -LOSA100T7 PO; -LOSA50TA2 PO; -OXYC-327 PO; +OXYC1TAB19 PO
[2018-06-20 12:28] VITALS: BP 186/106
[2018-06-20] MEDS ORDERED: oxyCODONE/APAP 10/325 1 TAB TABLET PO ONE (13:00)
[2018-06-20] MEDS ORDERED: ONDANSETRON ODT 4 MG TAB.RAPDIS. PO ONE (13:00)
--- NOTE | 2018-06-20 13:11 | PHYS DOC ---
Past Medical History Past Medical History: Anxiety, Hypertension, TIA, Other Additional Past Medical Histor: Rapid heart rate,CLAUSTROPHOBIA Past Surgical History: Other Additional Past Surgical Histo: HAMSTRING Alcohol Use: Occasionally Drug Use: None Adult General Chief Complaint Chief Complaint: HEAD INJURY/TRAUMA HPI HPI Patient is a 43 year old with head injury, neck and left hand pain after tripping while at home and landing on his face. Denies LOC but does reports feeling the dazed. Also reports nausea without vomiting and posterior neck pain and left hand pain. [] Review of Systems Review of Systems ROS as per HPI All other systems were reviewed and found to be within normal limits, except as documented in this note. Current Medications Current Medications Current Medications Medications (Trade) Dose Ordered Sig/Isatu Start Time Stop Time Status Last Admin Dose Admin Ondansetron HCl (Zofran Odt) 4 mg 1X ONCE 06/20/18 13:00 06/20/18 13:01 DC 06/20/18 12:59 4 MG Oxycodone/ Acetaminophen (Percocet 10/325) 1 tab 1X ONCE 06/20/18 13:00 06/20/18 13:01 DC 06/20/18 13:00 1 TAB Allergies Allergies Allergies Coded Allergies Type Severity Reaction Last Updated Verified No Known Drug Allergies 02/25/16 No Physical Exam Physical Exam Constitutional: Well developed, well nourished, no acute distress, non-toxic appearance. [] HENT: Normocephalic, right forehead contusion, bilateral external ears normal, oropharynx moist, no oral exudates, nose normal. [] Eyes: PERRLA, EOMI, conjunctiva normal, no discharge. [] Neck: Normal range of motion, no tenderness, supple, soft cervical collar in place. [] Cardiovascular:Heart rate regular rhythm, no murmur [] Lungs & Thorax: Bilateral breath sounds clear to auscultation. [] Abdomen: Bowel sounds normal, soft, no tenderness. [] Extremities: Left contusion, no deformity. [] Neurologic: Alert and oriented X 3, normal motor function, normal sensory function, no focal deficits noted. [] Psychologic: Affect normal, judgement normal, mood normal. [] Current Patient Data Vital Signs Vital Signs Date Time Temp Pulse Resp B/P (MAP) Pulse Ox O2 Delivery O2 Flow Rate FiO2 12/17/18 13:00 20 96 Room Air 06/20/18 12:28 98.0 113 186/106 (132) 98.0 EKG EKG [] Radiology/Procedures Radiology/Procedures [CT head/cervical spine: No fx X-ray left hand: No fracture ] Course & Med Decision Making Course & Med Decision Making Pertinent Labs and Imaging studies reviewed. (See chart for details) [Concussion syndrome without evidence of intracranial hemorrhage or injury imaging study.] Dragon Disclaimer Dragon Disclaimer This electronic medical record was generated, in whole or in part, using a voice recognition dictation system. Departure Departure Impression: Primary Impression: Contusion of left hand Additional Impressions: Closed head injury Concussion Disposition: HOME, SELF-CARE Condition: GOOD Referrals: KAYLA STANTON MD (PCP) Patient Instructions: Concussion and Brain Injury, [id number], Contusion, [id number] Additional Instructions: You were evaluated in the emergency for head and neck injury and left hand pain. Imaging studies were performed and do not show evidence of fracture or brain injury. Cervical strain and concussion syndrome. Please take ibuprofen 3 times daily for pain and tramadol and Zofran as needed for. Avoid stressful and stimulating environments. Follow-up with your PCP in 3-5 days for reevaluation. Return to the ED if new or worsening symptoms. Scripts Ondansetron Hcl (ZOFRAN) 4 Mg Tablet 1 TAB PO Q6HRS, #10 TAB 0 Refills Prov: ALVIN SOLANO DO 06/20/18 Tramadol Hcl (TRAMADOL HCL) 50 Mg Tablet 50 MG PO Q6HRS PRN for PAIN for 5 Days, #15 TAB 0 Refills Prov: ALVIN SOLANO DO 06/20/18 Problem Qualifiers ALVIN SOLANO DO Jun 20, 2018 13:11
--- NOTE | 2018-06-20 13:36 | RAD ---
HAND LEFT 3V History: FALL X TODAY LEFT HAND PAIN IN SECOND DIGIT. Comparison: None are available No evidence of acute fracture or dislocation of the second finger, or elsewhere in the [id number]. No evidence of bone destruction. IMPRESSION: No evidence of acute fracture or dislocation of the second finger. Electronically signed by: Geoffrey Cox MD (06/20/2018 1:33 PM) [id number]
--- NOTE | 2018-06-20 13:37 | RAD ---
EXAM: CT HEAD WITHOUT IV CONTRAST CLINICAL HISTORY: FALL TODAY, TRAUMA COMPARISON: CT head 01/24/2017 TECHNIQUE: Routine CT of the head without contrast. Soft tissues and bone windows were reviewed. PQRS compliance statement - One or more of the following individualized dose reduction techniques were utilized for this study: 1. Automated exposure control 2. Adjustment of the mA and/or kV according to patient size 3. Use of iterative reconstruction technique FINDINGS: There is no evidence of hemorrhage, mass or extra-axial fluid collection. Serrano-white differentiation is maintained with no evidence of edema. There is no mass effect or shift of the intracranial structures. The ventricles, basilar cisterns and cortical sulci are normal in size and configuration for the patients stated age. The cerebellum and brainstem are unremarkable. The calvarium demonstrates no evidence of fracture or focal lesion. Minimal patchy opacities of the ethmoid air cells, possibly sinusitis. Mastoid air cells are clear. The visualized portions of the orbits are normal. IMPRESSION: 1. No evidence for acute intracranial process. 2. Minimal patchy opacities of the ethmoid air cells, possibly sinusitis. EXAM: CT CERVICAL SPINE WITHOUT IV CONTRAST CLINICAL HISTORY: FALL TODAY, TRAUMA
PREVIOUS COMPARISON: None available. TECHNIQUE: Helical CT of the cervical spine was performed. Axial, coronal and sagittal reformatted images were also performed. PQRS compliance statement - One or more of the following individualized dose reduction techniques were utilized for this study: 1. Automated exposure control 2. Adjustment of the mA and/or kV according to patient size 3. Use of iterative reconstruction technique FINDINGS: Of note, there is motion artifact at C6 and below limiting evaluation. Within these constraints there is no evidence of acute fracture. Straightening of the normal cervical lordosis. No spondylolisthesis. Vertebral body heights are grossly preserved. Intervertebral disc heights are also grossly preserved. Mild atlantodental degenerative changes are seen. No significant osseous central canal stenosis or neural foraminal narrowing. IMPRESSION: No evidence of acute fracture or subluxation. Electronically signed by: Simone Cui MD (06/20/2018 1:33 PM) [facility]
[2018-06-20] MEDS ORDERED: ONDA4TAB7 PO (13:51)
[2018-06-20] MEDS ORDERED: TRAM50TA PO (13:51)
== END 2018-06-20 14:43 | disposition home or self-care (01) ==
LOC: ER 12:13
DX: S06.0X0A Concussion without loss of consciousness, initial encounter (principal); S60.222A Contusion of left hand, initial encounter; I10 Essential (primary) hypertension; Z86.73 Personal history of transient ischemic attack (TIA), and cerebral infarction without residual deficits; W01.198A Fall on same level from slipping, tripping and stumbling with subsequent striking against other object, initial encounter; Y93.89 Activity, other specified; Y92.89 Other specified places as the place of occurrence of the external cause; Y99.8 Other external cause status
CPT/HCPCS: 70450; 72125; 73130; 99284; Q0162

== ENCOUNTER → 2019-02-10 | Day surgery (SDC) | payer OTHER ==
[~2019-02-10] MED LIST changes: +ALBU2.5V8 INH; -AMLO10TA6 PO; +AMLO10TA8 PO; +AMLO5TAB10 PO; -AMLO5TAB7 PO; +FURO20TA3 PO; +HYDROmorphone 2 MG/ML VIAL IV PRN; +IV RINGERS,LACTATED 1000ML 1,000 ML IV SCH; -LAMO25TA PO; +LAMO25TA9 PO; +LIDOCAINE 1% PF 2 ML VIAL. ID PRN; +LIDOCAINE 2% PF 5 ML VIAL. ONE; +MONT10TA49 PO; -MONT10TA9 PO; +MORPHINE SULFATE 2 MG/ML VIAL. IV PRN; +ONDA4TAB7 PO; -PROAIR HFA8.5 GM INH; +PROCHLORPERAZINE 10 MG/2 ML VIAL. IV PRN; +PROPOFOL 20 ML IV ONE; +SPIR50TA4 PO; +TRAM50TA PO; +fentaNYL PF VIAL 100 MCG/2 ML VIAL IV PRN
[2019-02-10 08:15] VITALS: BP 176/106
--- NOTE | 2019-02-13 14:06 | PATHOLOGY ---
[facility] Accession Number: [id number] . 01 Material submitted: . esophagus - DISTAL ESOPHAGUS BIOPSY. Modifiers: distal . 01 Clinical history: . Reflux, rule out Caldwell's . 02 Diagnosis: Esophageal biopsies, distal esophagus: - Segments of hyperplastic squamous esophageal mucosa consistent with reflux esophagitis. . (JPM:mml; 02/13/2019) [facility]/02/13/2019 . 02 Comment: Sections of the distal esophageal biopsy reveal segments of focally tangentially-oriented hyperplastic squamous esophageal mucosa. The findings are consistent with reflux esophagitis. There is no evidence of Caldwell's change, dysplasia, or malignancy. . (JPM:mml; 02/13/2019) . 02 Electronically signed: . Steve Walsh MD, Pathologist NPI- [id number] . 01 Gross description: . Received in formalin labeled "Steve Solomon, distal esophagus BX," are 4 segments of hood soft tissue measuring 1.3 x 0.7 x 0.1 cm in aggregate dimensions and ranging from 0.3 to 0.6 cm in maximum dimension. The specimen is submitted entirely in cassette A1. (TSD; 02/10/2019) TOB/TOB . 02 Pathologist provided ICD-10: K21.0 . 02 CPT . 770852 Specimen Comment: A courtesy copy of this report has been sent to Specimen Comment: [phone], . Specimen Comment: Report sent to / DR STANTON Performed at: 01 [facility] [address], [place], [place] [id number] MD Anatoliy Grover MD Phone: [phone] Performed at: 02 [facility] [address] [place], [place] [id number] MD Steve Walsh MD Phone: [phone]
== END ==
LOC: ENDOS 06:29
PROVIDERS: ATTEND Internal Medicine Gastroenterology
DX: K21.0 Gastro-esophageal reflux disease with esophagitis (principal); K22.2 Esophageal obstruction; F41.9 Anxiety disorder, unspecified; I10 Essential (primary) hypertension; F15.90 Other stimulant use, unspecified, uncomplicated; Z72.89 Other problems related to lifestyle; Z87.891 Personal history of nicotine dependence
CPT/HCPCS: 43239; 43450; J2001; J2704; 88305

== ENCOUNTER → 2019-09-29 | Outpatient (CLI) | payer OTHER ==
[2019-06-05 14:00] VITALS: BP 164/77
[~2019-09-29] MED LIST changes: +CARV12.511 PO; +DIVA500T17 PO; -HYDROmorphone 2 MG/ML VIAL IV PRN; -IV RINGERS,LACTATED 1000ML 1,000 ML IV SCH; -LIDOCAINE 1% PF 2 ML VIAL. ID PRN; -LIDOCAINE 2% PF 5 ML VIAL. ONE; -MORPHINE SULFATE 2 MG/ML VIAL. IV PRN; -PROCHLORPERAZINE 10 MG/2 ML VIAL. IV PRN; -PROPOFOL 20 ML IV ONE; -fentaNYL PF VIAL 100 MCG/2 ML VIAL IV PRN
--- NOTE | 2019-09-29 08:11 | RAD ---
Ultrasound of the left inguinal region 09/29/2019 CLINICAL HISTORY: Left groin pain. TECHNIQUE: A real-time ultrasound examination of the left inguinal region in the area of the patient's pain was performed. Multiple images were obtained. FINDINGS: Several reactive lymph nodes are seen in the left inguinal region which measure 7 mm to 1.2 cm in size. There appears to be a small fat-containing left inguinal hernia which measures 1 cm in greatest diameter. IMPRESSION: Small fat-containing left inguinal hernia. Electronically signed by: Bijan Valderrama MD (09/29/2019 8:07 AM) [id number]
== END ==
LOC: US 06:51
PROVIDERS: ATTEND Surgery
DX: K40.90 Unilateral inguinal hernia, without obstruction or gangrene, not specified as recurrent (principal)
CPT/HCPCS: 76881